=== PATIENT | female | born 1965 | race Caucasian/White ===

== ENCOUNTER → 2016-07-20 | Outpatient (REF) | payer OTHER ==
[~2016-07-20] MED LIST: ACTO150T PO; ADV500INH INH; ALB2.5NEB INH; ALBU0.63 IN; ALBU0.63 INH; ALBU17IN INH; BACITAB3 PO; CETI10TA PO; CIPR500T89 PO; DELTASONE PO; FLUTISP; INVA1INJ IV; METH8TAB OR; METR500T10 PO; PRED10TA PO; PRED20TA PO; SINGULAIR PO; THEO30TASA PO; TIOT18INH INH; TYLE325T5 PO; TYLE650T30 PO; VICO5TAB16 PO; VITA100037 PO; XANA0.25 PO; ZITH250T PO; actonel OR; spiriva INH; tiotropium INH
== END | disposition home or self-care (01) ==
LOC: M LAB REF 11:59
PROVIDERS: ATTEND Nurse Practitioner Family
DX: J06.9 Acute upper respiratory infection, unspecified (principal)

== ENCOUNTER 2016-12-05 17:00 | Emergency (ER) | payer OTHER ==
[~2016-12-05] VITALS: Ht 157.5 cm; Wt 58.8 kg
[~2016-12-05 17:00] MED LIST changes: +BACITAB PO; -BACITAB3 PO; +CIPR-249 PO; -CIPR500T89 PO; +METR1TAB66 PO; -METR500T10 PO; +THEO1TAB4 PO
[2016-12-05] MEDS ORDERED: ZITH250T PO (17:13)
[2016-12-05] MEDS ORDERED: ADV500INH INH (17:13)
[2016-12-05] MEDS ORDERED: PRED10TA2 PO (17:13)
[2016-12-05] MEDS ORDERED: ONDANSETRON 4MG/2ML VIAL (J2405) IV ONE (17:45)
[2016-12-05] MEDS ORDERED: NS 1,000 ML IV ONE (17:45)
[2016-12-05] MEDS ORDERED: KETOROLAC 30 MG/ML VIAL (J1885) IV ONE (17:45)
[2016-12-05 18:10] LABS: BASO # 0.1 K/mm3 (0.0-0.2); BASO % 0.5 % (0.0-1.0); EOS # 0.2 K/mm3 (0.0-0.50); EOS % 0.7 % (0.0-3.0); LARGE UNSTAINED CELL # 0.1 K/mm3 (0.0-0.4); LARGE UNSTAINED CELL % 0.4 % (0.0-4.0); LYMPH # 1.7 K/mm3 (1.5-4.5); LYMPH % 7.2 % (24.0-44.0); MEAN CORPUSCULAR HEMOGLOBIN 32.4 pg (27.0-33.0); MEAN CORPUSCULAR HGB CONC 34.4 g/dl (32.0-36.5); MONO # 0.6 K/mm3 (0.0-0.8); MONO % 2.5 % (0.0-5.0); NEUTROPHILS # 20.5 K/mm3 (1.8-7.7); NEUTROPHILS % 88.8 % (36.0-66.0); PLATELET COUNT, AUTOMATED 422 k/mm3 (150-450); RED CELL DISTRIBUTION WIDTH 12.6 % (11.5-14.5)
--- NOTE | 2016-12-05 18:22 | REP ---
Clinical: Lower chest and abdominal pain . Comparison: 11/09/2016 . Technique: PA and lateral. Findings: The mediastinum and cardiac silhouette are normal. The lung cho are clear and without acute consolidation, effusion, or pneumothorax. The skeletal structures are intact and normal. No evidence for pneumoperitoneum. Impression: 1. No acute cardiopulmonary process. Signed by Abdon Chavez MD 12/05/2016 06:14 P
[2016-12-05 18:46] LABS: ALBUMIN 3.9 GM/DL (3.2-5.2); ALBUMIN/GLOBULIN RATIO 1.11 (1.00-1.93); ALKALINE PHOSPHATASE 79 U/L (45-117); ALT/SGPT 19 U/L (12-78); AMYLASE 55 U/L (25-115); ANION GAP 10 MEQ/L (8-16); AST/SGOT 10 U/L (15-37); BILIRUBIN,DIRECT < 0.1 MG/DL (0.0-0.2); BILIRUBIN,TOTAL 0.4 MG/DL (0.2-1.0); BLOOD UREA NITROGEN 8 MG/DL (7-18); CALCIUM LEVEL 9.6 MG/DL (8.5-10.1); CARBON DIOXIDE LEVEL 25 MEQ/L (21-32); CHLORIDE LEVEL 107 MEQ/L (98-107); CREATININE FOR GFR 1.08 MG/DL (0.55-1.02); GLOMERULAR FILTRATION RATE 56.5 (>51); GLUCOSE, FASTING 104 MG/DL (70-105); POTASSIUM SERUM 3.3 MEQ/L (3.5-5.1); SODIUM LEVEL 142 MEQ/L (136-145); TOTAL PROTEIN 7.4 GM/DL (6.4-8.2)
[2016-12-05] MEDS ORDERED: ISOVUE-370 76% 100ML VIAL (Q9967) As Ordered ONE (18:49)
--- NOTE | 2016-12-05 19:17 | REP ---
Clinical: Generalized abdominal pain. Technique: Axial contrast enhanced images from the lung bases to the pubic symphysis using 100 ml Isovue 370 intravenous contrast material with coronal and sagittal re-formations. Comparison: 12/20/2014. Findings: The lung bases are clear. Visualized heart and pericardium normal. 1 cm hepatic cyst noted in the periphery of the left lobe lateral segment. Spleen, pancreas, gallbladder, bilateral adrenal glands and kidneys are normal. A mild pancolitis as well as possible acute diverticulitis involving the mid sigmoid colon cannot be excluded and should be correlated clinically. There is no evidence for bowel obstruction. Pelvis demonstrates normal bladder and age-appropriate uterus/adnexa. Small fluid collection in the right groin unchanged compared to 2013. No ascites. No free air. No obvious adenopathy. Abdominal aorta and vasculature normal. Surrounding musculoskeletal structures are intact. Impression: 1. Cannot exclude a mild colitis as well as subtle sigmoid diverticulitis (versus sequelae of prior colitis). No bowel obstruction. No free fluid. No free air. No significant adenopathy. 2. Small fluid collection in the right groin essentially unchanged compared to 2013. 3. No ascites, significant adenopathy, or further obvious acute abdominopelvic pathology. Signed by Abdon Chavez MD 12/05/2016 07:09 P
[2016-12-05] MEDS ORDERED: ZOFR4TAB3 PO (19:38)
[2016-12-05] MEDS ORDERED: CIPR-249 PO (19:38)
[2016-12-05] MEDS ORDERED: FLAG500T PO (19:38)
[2016-12-05] MEDS ORDERED: K-TA1TAB PO (19:38)
[2016-12-05 19:51] VITALS: BP 146/89
== END 2016-12-05 19:53 | disposition home or self-care (01) ==
LOC: M ED 18:01
DX: K57.32 Diverticulitis of large intestine without perforation or abscess without bleeding (principal); E87.6 Hypokalemia; Z79.899 Other long term (current) drug therapy; Z79.52 Long term (current) use of systemic steroids; Z88.7 Allergy status to serum and vaccine; Z91.040 Latex allergy status; Z88.0 Allergy status to penicillin; Z88.8 Allergy status to other drugs, medicaments and biological substances
CPT/HCPCS: 71020; 74177; 80048; 80076; 81001; 82150; 83605; 83690; 85025; 96361; 96374; 96375; 99283; J1885; J2405; Q9967

== ENCOUNTER 2016-12-25 14:30 | Emergency (ER) | payer OTHER ==
[~2016-12-25] VITALS: Ht 157.5 cm; Wt 59.0 kg
[~2016-12-25 14:30] MED LIST changes: +FLAG500T PO; +K-TA1TAB PO; +PRED10TA2 PO; +ZOFR4TAB3 PO
[2016-12-25] MEDS ORDERED: DICY10CA13 PO (14:52)
[2016-12-25] MEDS ORDERED: ONDANSETRON 4MG/2ML VIAL (J2405) IV ONE (15:15)
[2016-12-25] MEDS ORDERED: NS 1,000 ML IV ONE (15:15)
[2016-12-25] MEDS ORDERED: MORPHINE 4 MG/ML 1ML SYRINGE IV ONE (15:15)
[2016-12-25] MEDS ORDERED: ACETAMINOPHEN 325 MG TAB As Ordered ONE (15:32)
[2016-12-25 15:37] LABS: BASO % 0.4 % (0.0-1.0); EOS # 0.4 K/mm3 (0.0-0.50); EOS % 3.4 % (0.0-3.0); LARGE UNSTAINED CELL # 0.1 K/mm3 (0.0-0.4); LARGE UNSTAINED CELL % 0.4 % (0.0-4.0); LYMPH # 1.4 K/mm3 (1.5-4.5); LYMPH % 10.3 % (24.0-44.0); MEAN CORPUSCULAR HEMOGLOBIN 32.1 pg (27.0-33.0); MEAN CORPUSCULAR HGB CONC 33.7 g/dl (32.0-36.5); MEAN CORPUSCULAR VOLUME 95.3 fl (80.0-96.0); MONO # 0.4 K/mm3 (0.0-0.8); MONO % 3.1 % (0.0-5.0); NEUTROPHILS # 10.5 K/mm3 (1.8-7.7); NEUTROPHILS % 82.4 % (36.0-66.0); PLATELET COUNT, AUTOMATED 327 k/mm3 (150-450); RED CELL DISTRIBUTION WIDTH 13.3 % (11.5-14.5); WHITE BLOOD COUNT 12.7 K/mm3 (4.0-10.0)
[2016-12-25 15:42] LABS: CONTROL LINE UCG INT CTR LINE PRESENT
[2016-12-25] MEDS ORDERED: ACETAMINOPHEN 325 MG TAB PO ONE (15:45)
[2016-12-25 16:11] LABS: ALBUMIN 3.5 GM/DL (3.2-5.2); ALBUMIN/GLOBULIN RATIO 1.17 (1.00-1.93); BILIRUBIN,DIRECT 0.1 MG/DL (0.0-0.2); BILIRUBIN,TOTAL 0.6 MG/DL (0.2-1.0); CALCIUM LEVEL 8.6 MG/DL (8.5-10.1); CREATININE FOR GFR 1.18 MG/DL (0.55-1.02); POTASSIUM SERUM 3.8 MEQ/L (3.5-5.1); TOTAL PROTEIN 6.5 GM/DL (6.4-8.2)
[2016-12-25] MEDS ORDERED: ISOVUE-370 76% 100ML VIAL (Q9967) As Ordered ONE (16:34)
--- NOTE | 2016-12-25 18:20 | REPUSA ---
HISTORY: LLQ PAIN, ?DIVERTICULITIS. TECHNIQUE: Axial CT imaging of the abdomen and pelvis with coronal and sagittal reformatted imaging, with intravenous contrast enhancement. DLP= 358.1 mGy-cm. FINDINGS: Lung bases are clear. Bone windows demonstrate no fracture or destructive bony lesion. Liver is of normal size. There is a 1 cm benign subcapsular cyst seen in the left lobe of the liver anteriorly. No other liver is seen. Biliary tree and gallbladder are normal with no gallstones seen . Spleen is normal. Pancreas is normal with no mass or calcification seen. No ascites is seen. Abdominal aorta and retroperitoneal structures are normal. Right and left, adrenal glands are normal . Both kidneys function without evidence of mass lesion, obstruction, or calculi seen. Ureters and urinary bladder are normal. There is edematous bowel wall thickening in the region of extensive diverticulosis in a 10 cm length of the sigmoid colon suspicious for diverticulitis, without evidence of bowel perforation or pericoli c abscess formation seen at this time. There are scattered diverticuli seen in the remainder of the colon with no other inflammatory mass seen. There is a right inguinal hernia with a cystic fluid co llection seen extending through the inguinal canal measuring approximately 3.0 x 2.1 cm. There is no evidence of bowel complication in the hernia. No evidence pelvic mass lesions or abnormal fluid col lections are seen. IMPRESSION: 1. Dilatation with bowel wall thickening in the region of extensive diverticulosis in th e sigmoid colon region suspicious for diverticulitis, without complication of pericolic abscess or silvana wel perforation or obstruction seen. 2. Right inguinal hernia with a cystic fluid collection extending through the inguinal canal without bowel complication seen. 3. Small benign cyst noted in the subcapsular region of the left lobe of the liver. 4. The remainder of the CT examination of the abdomen and pelvis is normal.
[2016-12-25] MEDS ORDERED: metroNIDAZOLE (FLAGYL) 500 MG TAB PO ONE (18:45)
[2016-12-25] MEDS ORDERED: METR1TAB66 PO (18:46)
[2016-12-25] MEDS ORDERED: CIPR500T3 PO (18:46)
[2016-12-25 18:57] VITALS: BP 121/75
[2016-12-25] MEDS ORDERED: CIPROFLOXACIN 500 MG TAB PO ONE (19:00)
== END 2016-12-25 19:00 | disposition home or self-care (01) ==
LOC: M ED 14:30
DX: K57.32 Diverticulitis of large intestine without perforation or abscess without bleeding (principal); J45.909 Unspecified asthma, uncomplicated; Z79.899 Other long term (current) drug therapy
CPT/HCPCS: 36415; 74177; 80048; 80076; 81001; 82150; 83690; 84703; 85025; 87086; 96374; 96375; 99284; J2405; Q9967

== ENCOUNTER 2017-01-13 14:34 | Inpatient (IN) | payer OTHER ==
[~2017-01-13] VITALS: Ht 157.5 cm; Wt 58.4 kg
[~2017-01-13 14:34] MED LIST changes: +CIPR500T3 PO; +DICY10CA13 PO
[2017-01-13] MEDS ORDERED: ACETAMINOPHEN 325 MG TAB PO ONE (15:15)
[2017-01-13] MEDS ORDERED: NS 1,000 ML IV ONE (15:15)
[2017-01-13 15:17] LABS: BASO # 0.1 K/mm3 (0.0-0.2); BASO % 0.4 % (0.0-1.0); EOS # 0.2 K/mm3 (0.0-0.50); EOS % 0.9 % (0.0-3.0); LARGE UNSTAINED CELL # 0.1 K/mm3 (0.0-0.4); LARGE UNSTAINED CELL % 0.5 % (0.0-4.0); LYMPH # 1.3 K/mm3 (1.5-4.5); LYMPH % 5.3 % (24.0-44.0); MEAN CORPUSCULAR HGB CONC 34.3 g/dl (32.0-36.5); MEAN CORPUSCULAR VOLUME 93.4 fl (80.0-96.0); MONO % 4.7 % (0.0-5.0); NEUTROPHILS # 19.6 K/mm3 (1.8-7.7); NEUTROPHILS % 88.3 % (36.0-66.0); PLATELET COUNT, AUTOMATED 373 k/mm3 (150-450); RED CELL DISTRIBUTION WIDTH 13.4 % (11.5-14.5); WHITE BLOOD COUNT 22.2 K/mm3 (4.0-10.0)
[2017-01-13] MEDS ORDERED: GASTROGRAFIN SOLUTION 30ML (Q9963) As Ordered ONE (15:23)
[2017-01-13] MEDS ORDERED: GASTROGRAFIN SOLUTION 30ML PO ONE (15:30)
[2017-01-13 15:40] LABS: ALBUMIN 3.6 GM/DL (3.2-5.2); ALBUMIN/GLOBULIN RATIO 1.13 (1.00-1.93); ALKALINE PHOSPHATASE 58 U/L (45-117); ALT/SGPT 28 U/L (12-78); AMYLASE 68 U/L (25-115); ANION GAP 12 MEQ/L (8-16); AST/SGOT 18 U/L (15-37); BILIRUBIN,DIRECT 0.1 MG/DL (0.0-0.2); BILIRUBIN,TOTAL 0.6 MG/DL (0.2-1.0); BLOOD UREA NITROGEN 20 MG/DL (7-18); CALCIUM LEVEL 8.9 MG/DL (8.5-10.1); CARBON DIOXIDE LEVEL 20 MEQ/L (21-32); CHLORIDE LEVEL 106 MEQ/L (98-107); CREATININE FOR GFR 1.04 MG/DL (0.55-1.02); GLUCOSE, FASTING 92 MG/DL (70-105); POTASSIUM SERUM 3.8 MEQ/L (3.5-5.1); SODIUM LEVEL 138 MEQ/L (136-145); TOTAL PROTEIN 6.8 GM/DL (6.4-8.2)
[2017-01-13] MEDS ORDERED: GASTROGRAFIN SOLUTION 30ML (Q9963) PO ONE (16:00)
--- NOTE | 2017-01-13 16:18 | REP ---
CHEST, PA AND LATERAL: 01/13/2017. Clinical history: Abdominal pain. Comparison: 12/05/2016, CT chest 12/14/2016. Findings: Lungs are well inflated. CP angles sharply defined. There is no effusion, lateral pleural thickening, or pneumothorax. There is no free air under the diaphragm. The heart, mediastinal and hilar contours normal. The aorta is intact. Airway is intact. Bony thorax shows no compression deformity or focal lesion. Impression: No acute cardiopulmonary change. Stable chest. Signed by Chilo Lyle MD 01/13/2017 10:24 P
[2017-01-13] MEDS ORDERED: ISOVUE-370 76% 100ML VIAL (Q9967) As Ordered ONE (17:09)
[2017-01-13] MEDS ORDERED: metroNIDAZOLE 500 MG in APPROPRIATE DILUENT 1 EA IV ONE (17:15)
[2017-01-13] MEDS ORDERED: CIPROFLOXACIN 400 MG in APPROPRIATE DILUENT 1 EA IV ONE (17:15)
[2017-01-13] MEDS ORDERED: ONDANSETRON 4MG/2ML VIAL (J2405) IV ONE (17:45)
[2017-01-13] MEDS ORDERED: MORPHINE 4 MG/ML 1ML SYRINGE IV ONE (17:45)
--- NOTE | 2017-01-13 18:38 | REP ---
CT abdomen pelvis with IV and oral contrast: 01/13/2017: Comparison: 12/25/2016. Clinical history: Left lower quadrant pain, diverticulitis, notable abscess. Technique: Oral Gastrografin mixture per protocol with 10 mL of gastrographin and 290 mL of flavored water for two doses. Bolus of 100 mL as of Isovue 370 scanning through the abdomen pelvis with both coronal and sagittal reconstructions. CT abdomen: Lung bases were clear. Heart is not enlarged. There is no pericardial thickening posteriorly slight anteriorly. Small hiatal hernia suspected. Left hepatic lobe mildly prominent. There is a small cyst in the lateral segment, unchanged. No hepatic mass or intrahepatic biliary dilatation. No splenomegaly or focal lesion. No generalized ascites. Gallbladder without calcified stone or mass. The pancreas intact. Adrenal glands normal. Kidneys show function without obstruction, stone, mass or cyst. The abdominal portion of colon and small bowel loops are fluid and air filled, not abnormally distended. There is no perforation or free air in the abdomen or pelvis. The right colon, cecum, transverse colon, flexures show a few scattered diverticula. Left colon shows a few more diverticula. There is no definite colitis or diverticulitis in the abdomen. Bones unchanged. There is minimal degenerative changes in the lumbar spine and posterior elements and ribs intact. CT pelvis: Bony hips, pelvis, sacrum, and SI joints were grossly intact. No hydronephrosis, hydroureter, renal, ureteral or bladder stone. Bladder only partially filled. There is more extensive diverticulosis in the sigmoid without signs of perforation or free air. There is inflammatory change in the fat adjacent suggesting some mild diverticulitis. Small bowel loops grossly intact in the deep pelvis. The cecum intact. I cannot clearly define the appendix but there was no inflammatory change about the cecum. No ventral hernia. There is a fluid collection in the inguinal canal, which most likely reflects a small hydrocele of the canal of Nuck. No adenopathy. Impression: 1. Extensive sigmoid diverticulosis with mild diverticulitis but no perforation or abscess. 2. Evidence of a hydrocele of the canal of Nuck on the left. It is low density and smaller in transverse diameter than the previous CT 2 1/2 weeks ago where it was 22 mm, now 16 mm, a common phenomenon. 3. There is no other acute finding. Signed by Chilo Lyle MD 01/13/2017 10:27 P
[2017-01-13] MEDS ORDERED: ZITH250T PO (19:32)
[2017-01-13] MEDS ORDERED: ALBU83IN INH (19:32)
[2017-01-13] MEDS ORDERED: ALEN10TA PO (19:32)
[2017-01-13] MEDS ORDERED: ALBU17IN INH (19:33)
[2017-01-13] MEDS ORDERED: ONDA4TAB6 PO (19:34)
[2017-01-13] MEDS ORDERED: MORPHINE 2 MG/ML 1ML SYRINGE IV PRN (19:45)
[2017-01-13] MEDS: ACETAMINOPHEN TAB 650MG DOSE (2X325MG) PO PRN (20:15)
[2017-01-13] MEDS ORDERED: SODIUM CHLORIDE 0.9% 1000 ML IV ONE (20:30)
[2017-01-13] MEDS: DOCUSATE SODIUM 100 MG CAP PO SCH (21:00)
[2017-01-13] MEDS ORDERED: IPRATROPIUM 0.5MG/ALBUTEROL 2.5MG INH SOL UD 3ML (DUONEB)(J7620) NEB PRN (21:00)
[2017-01-13 21:30] VITALS: BP 130/62
[2017-01-13] MEDS: NS 1,000 ML IV SCH (22:09)
[2017-01-13] MEDS: PERCOCET 5MG/325MG TAB PO PRN (22:11)
[2017-01-13] MEDS: ADVAIR HFA 230/21MCG INHALER INH SCH (23:30)
[2017-01-13] MEDS: IPRATROPIUM 0.5MG/ALBUTEROL 2.5MG INH SOL UD 3ML (DUONEB)(J7620) NEB SCH (23:30)
[2017-01-14] VITALS (8 sets, daily range): BP systolic 78–122; BP diastolic 53–79
[2017-01-14] MEDS: VANCOMYCIN ORAL SOL 250MG/5ML ORAL SYRINGE PO SCH ×5 (00:01→23:32)
[2017-01-14] MEDS: IBUPROFEN 600 MG TAB PO PRN ×2 (01:01→21:29)
[2017-01-14] MEDS: metroNIDAZOLE 500 MG in APPROPRIATE DILUENT 1 EA IV SCH ×3 (03:24→20:26)
[2017-01-14] MEDS: NS 1,000 ML IV SCH ×2 (05:53→13:11)
[2017-01-14] MEDS: CIPROFLOXACIN 400 MG in APPROPRIATE DILUENT 1 EA IV SCH ×2 (05:53→18:13)
[2017-01-14] MEDS: PERCOCET 5MG/325MG TAB PO PRN ×4 (05:56→20:26)
[2017-01-14] MEDS: ONDANSETRON 4MG/2ML VIAL (J2405) IV PRN (05:56)
[2017-01-14 07:46] LABS: MEAN CORPUSCULAR HEMOGLOBIN 31.7 pg (27.0-33.0); MEAN CORPUSCULAR HGB CONC 33.3 g/dl (32.0-36.5); MEAN CORPUSCULAR VOLUME 95.2 fl (80.0-96.0); RED CELL DISTRIBUTION WIDTH 13.2 % (11.5-14.5)
[2017-01-14] MEDS: ADVAIR HFA 230/21MCG INHALER INH SCH ×2 (07:55→19:50)
[2017-01-14] MEDS: TIOTROPIUM INHALER/CAPSULE (SPIRIVA) INH SCH (07:55)
[2017-01-14] MEDS: IPRATROPIUM 0.5MG/ALBUTEROL 2.5MG INH SOL UD 3ML (DUONEB)(J7620) NEB SCH ×3 (08:00→23:09)
[2017-01-14 08:23] LABS: BLOOD UREA NITROGEN 20 MG/DL (7-18); CREATININE FOR GFR 1.37 MG/DL (0.55-1.02); GLOMERULAR FILTRATION RATE > 60.0 (>51); GLUCOSE, FASTING 83 MG/DL (70-105); POTASSIUM SERUM 3.4 MEQ/L (3.5-5.1); SODIUM LEVEL 139 MEQ/L (136-145)
[2017-01-14 08:24] LABS: ANION GAP 14 MEQ/L (8-16); CALCIUM LEVEL 6.9 MG/DL (8.5-10.1); CARBON DIOXIDE LEVEL 15 MEQ/L (21-32); CHLORIDE LEVEL 110 MEQ/L (98-107)
[2017-01-14] MEDS: DOCUSATE SODIUM 100 MG CAP PO SCH ×2 (08:44→21:24)
[2017-01-14] MEDS: predniSONE 5 MG TAB PO SCH ×2 (08:44→11:11)
[2017-01-14] MEDS: ENOXAPARIN 40 MG/0.4 ML SYRINGE (J1650) SC SCH (08:44)
--- NOTE | 2017-01-14 09:32 | CR ---
DATE OF CONSULTATION: 01/13/2017. REQUESTING PHYSICIAN: Dr. Richter. REASON FOR CONSULTATION: Medical management. CODE STATUS: FULL CODE. CHIEF COMPLAINT: Worsening abdominal pain. HISTORY OF PRESENT ILLNESS: Ms. Eng is a pleasant 51-year-old female with history of asthma for which she sees pulmonology, and osteoporosis. She apparently has had difficulty with recurrent diverticulitis, recently finished antibiotics and stated approximately 3-4 days ago she noticed that the abdominal pain was returning. She has had subjective fevers, chills. No rigors. Decreased appetite with nausea, no vomiting and she has had some loose stool without any hematochezia or melena. She follows outpatient with Dr. Wells and stated that he had intended to refer her to either surgeon or recreation programmer for colonoscopy due to this recurrent issue that she has had. There does not appear to be any family history of inflammatory bowel disease. PAST MEDICAL HISTORY: 1. Asthma. 2. Recently recurrent diverticulitis. PAST SURGICAL HISTORY: 1. Previous section. 2. Tubal operation in the past with loop electrosurgical excision procedure (LEEP) procedure in 2002. 3. Breast biopsy in the past. FAMILY HISTORY: Noncontributory. ALLERGIES: 1. PENICILLIN. 2. PULMICORT. 3. PNEUMOCOCCAL VACCINE. 4. LATEX. HOME MEDICATIONS: - prednisone 10 mg daily - theophylline 300 mg twice a day - Advair 500/50 one inhalation twice a day - Spiriva one inhalation daily - albuterol inhaler as directed Will also request pharmacy to reconcile her medications. REVIEW OF SYSTEMS: As indicated in the history of present illness (HPI). She has had decreased appetite, subjective fevers, chills with no rigors. HEENT: She denies headache, lightheaded, dizziness blurry vision, double vision or tinnitus. No difficulty with speech or swallow. Pulmonary: History of asthma with intermittent wheeze, but she denies productive cough, sputum, hemoptysis. Cardiovascular: She denies substernal chest pain. Denies paroxysmal nocturnal dyspnea (PND), orthopnea or lower extremity edema. Gastrointestinal (GI): As indicated above, decreased appetite with nausea, no vomiting. She has had some stool and she has had vague lower abdominal pain for approximately 3-4 days. Musculoskeletal: No bone loss or joint pain, swelling, or erythema. Neurologic: No paresthesias or paralysis. Psychiatric: Denies suicidal ideation or auditory or visual hallucinations. Denies depression. No history of anxiety. Endocrine: Negative for diabetes. Negative for thyroid disorder. Lymphatic: No lumps, bumps, swelling in the neck, axilla or groin. No night sweats. No weight loss. Hematology: Negative for bleeding or bruising disorder. Oncology: No history of cancer. PHYSICAL EXAMINATION: VITAL SIGNS: Temperature currently 102.3 oral, pulse is 112, blood pressure 109/65, SPO2 is 92% on room air. GENERAL: The patient appears to be in no acute distress. She is alert, pleasant. HEENT: Unremarkable. LUNGS: Clear. Her mucous membranes, however, did appear to be mildly dry. HEART: Regular rate and rhythm. ABDOMEN: Diffusely tender in the lower abdomen, somewhat more noticeably in the left lower quadrant. Bowel sounds are active. She does not demonstrate any rebound or peritoneal signs. No psoas sign. EXTREMITIES: No edema or calf tenderness. NEUROLOGIC: Cranial nerves II-XII grossly intact and she is not demonstrating any focal motor sensory deficits. LABORATORY DATA: White count 22.2, hemoglobin is 15, platelets 373,000. Sodium 138, potassium 3.8, chloride 106, bicarb 20, anion gap 12, BUN is 20, creatinine 1.04, glucose 92. Lactic acid on admission to the ER was 2.1. Four-hour followup is 2.0. She did receive an IV fluid bolus, and she is receiving a second fluid bolus currently. Total bilirubin is 0.6, direct bilirubin 0.1, AST 18, ALT 20, alkaline phosphatase 58. CK 40, CK-MB is 1.0, troponin less than 0.02,. Albumin is 3.6. 12-lead EKG: Sinus tachycardia. Questionable short OH interval. However, there is a P-wave for every QRS. No acute ST-T wave abnormality is noted. Chest x-ray: No acute cardiopulmonary disease noted. CT of the abdomen and pelvis with contrast: Extensive sigmoid colon diverticulosis with mild diverticulitis. No perforation or abscess. No evidence of hydrocele of the canal of Nuck on the left, low-density and smaller in transverse diameter and previous CT scan done two and half weeks ago, possibly a common phenomenon. No acute process is noted. IMPRESSION Ms. Hutton is a pleasant 51-year-old female who unfortunately has had recurrent issues with her diverticular disease, does appear to have recurrence of acute diverticulosis with leukocytosis and lactic acidosis. She has been admitted by Dr. Richter. Hospitalist has been requested to see the patient on consult for medical management which we are happy to do so. PROBLEM LIST: 1. Acute diverticulitis. 2. Leukocytosis secondary to diverticulitis. 3. Lactic acidosis secondary to diverticulitis. 4. Asthma. 5. History of osteoporosis. PLAN AND RECOMMENDATIONS: The patient has been admitted by Dr. Richter. Hospitalist will follow for medical consult and medical management. Would recommend that we continue with DuoNeb. Continue on her home medications. I am fine with clear liquid diet as long as that is okay with surgery. Deep venous thrombosis (DVT) prophylaxis with intravenous (IV) Lovenox. Pain medications, antiemetics have been ordered, as well as IV Cipro and Flagyl, and we will continue her on IV normal saline 125 mL an hour. Again, she was given a bolus. Likely her sinus tachycardia is related to her illness and she does appear to have signs and symptoms of mild sepsis. At this point, will continue on antibiotics and fluids as outlined above. DISPOSITION: She will likely be here greater than two midnights. In the morning Dr. Ramos will continue to round on the patient during her hospital stay. Thanks for the consult and call if there are any further issues or questions.
--- NOTE | 2017-01-14 09:50 | ECGEPIP ---
Stationary ECG Study [facility] - ED Test Date: 2017-01-13 Pat Name: FRITZ GANDHI Department: Room: - Gender: F Sales Closer: lr : 1965 Requested By: SEVEN Butler Order Number: [id number] Reading MD: Juan Maria Measurements Intervals [place] Rate: 142 P: 75 DE: 88 QRS: -5 QRSD: 79 T: 82 QT: 312 QTc: 480 Interpretive Statements SINUS TACHYCARDIA WITH SHORT DE INTERVAL INC. RBBB NONSPECIFIC ST & T-WAVE ABNORMALITY SIMILAR TO 04/23/14 Electronically Signed On 01-14-2017 9:50:07 EDT by Juan Maria
[2017-01-14] MEDS ORDERED: SODIUM CHLORIDE 0.9% 1000 ML IV ONE (11:00)
[2017-01-14] MEDS ORDERED: POTASSIUM CHLORIDE 10 MEQ SR TABLET PO ONE (19:00)
[2017-01-14 19:01] LABS: MAGNESIUM LEVEL 1.6 MG/DL (1.8-2.4)
[2017-01-14] MEDS: THEOPHYLLINE (THEO-24) 100MG SR **CAPSULE PO SCH (21:22)
--- NOTE | 2017-01-14 22:04 | IPN ---
DATE: 01/14/2017 SUBJECTIVE: The patient is seen and examined in the room today. The patient stated since this morning she woke up with significant discomfort. The patient started to have worsening of the abdominal pain. The patient had significant nausea. There are some acute changes to her condition since admission. The patient still has a temperature of 102.8 at midnight. The patient continues to experience palpitations. OBJECTIVE: VITAL SIGNS: Temperature is 98.3, pulse is 117, respirations 20, blood pressure 86/53, pulse oximetry 93% with two liters nasal cannula. GENERAL: Moderate distress. Alert and oriented times three. HEENT: Normocephalic, atraumatic. Extraocular motor grossly intact. CARDIOVASCULAR: Positive S1, S2. Regular rate. LUNGS: Clear to auscultation bilaterally. ABDOMEN: Soft, tenderness to palpation mainly on the lower abdomen. Bowel sounds present. EXTREMITIES: No edema, no sign of cyanosis. LABORATORY DATA: WBC is 14, hemoglobin 12.6, hematocrit 37.9, platelet count 266. Sodium 139, potassium 3.4, chloride 110, carbon dioxide 15, BUN 20, creatinine 1.37, GFR greater than 60, fasting glucose 83, calcium is 6.9. C-reactive protein 10.6. ASSESSMENT AND PLAN: 1. Clostridium (C.) difficile colitis. 2. Acute on chronic diverticulitis. 3. Asthma. 4. Osteoporosis. 5. History of multiple liver abscesses. PLAN: This morning the patient has acute worsening of symptoms with low-grade temperature at midnight. The patient had persistent tachycardia and at the current encounter, the patient has blood pressure as low as 78/56. The patient also has elevated white count, and immediately a STAT bolus order was given, and gastrointestinal (GI) panel is ordered. Later the GI panel came back positive for C. difficile and the patient has been on oral vancomycin. Due to acute on chronic diverticulitis the patient has been on Cipro and Flagyl. The patient is upgraded from medicine/surgery to the progressive care unit (PCU). Continue fluid bolus as needed. The patient has continued to have acute desaturation of the vitals, and the patient may need intensive care unit (ICU) admission. Currently the patient does not have asthma exacerbation, but the patient has breathing treatment as needed. The patient has been on chronic prednisone for her severe asthma. The patient is taking Lovenox for deep venous thrombosis (DVT) prophylaxis.
[2017-01-15] MEDS: NS 1,000 ML IV SCH ×3 (00:33→13:13)
--- NOTE | 2017-01-15 01:57 | CR ---
DATE OF CONSULTATION: 01/13/2017 CHIEF COMPLAINT: Abdominal pain, diarrhea, history of recent diverticulitis and questionable recurrent episode of diverticulitis. BRIEF HISTORY OF PRESENT ILLNESS: The patient is a 51-year-old female who was recently seen and treated for diverticulitis, with extensive diverticulosis and bowel wall thickening in the sigmoid colon, concerning for possible diverticulitis, but no pericolonic inflammation was appreciated on the previous studies and presents to the emergency room with acute onset of increasing abdominal pain with severe diarrhea. She stopped her antibiotics, Cipro and Flagyl, about four or five days ago. She has not had any fevers or chills, although is having some abdominal distension, nausea without vomiting. No blood per rectum. She states she did have a few diarrheal bowel movements last time she had the diverticulitis, although I do not see any stool for Clostridium (C) difficile during those emergency room (ER) visits here. She presents with a white count of 22,000 and a CAT scan which shows extensive diverticulosis and possible mild diverticulitis in the hydrocele; however, when I look at her CAT scan, I see significant inflammation of the mucosa of the rectum up into the rectosigmoid junction area, up along the colon itself, along the descending colon. If I continue following this all along, the majority of the colon has some sort of inflammation, although much less in the right colon in the cecum compared to the descending colon, sigmoid colon and rectum. PAST MEDICAL HISTORY: Significant for: 1. History of asthma. 2. History of diverticulitis. 3. History of (C) section. 4. History of tubal ligation. 5. History of breast biopsy. MEDICATIONS: Include: - prednisone - theophylline - Advair - Spiriva - albuterol PHYSICAL EXAMINATION: Reveals a 51-year-old female who looks older than stated age. HEENT: Unremarkable. NECK: Supple without adenopathy. LUNGS: Are clear with a few wheezes. HEART: Is regular. ABDOMEN: Mildly tender throughout the abdomen, but mostly in the left lower quadrant suprapubic area. EXTREMITIES: Warm, well-perfused. IMPRESSION/PLAN: The patient has an elevated white count, significant diarrhea, nausea, and I feel it is most likely a generalized colitis, probably infectious, and given her recent antibiotic use, anticipate most likely Clostridium (C) difficile infection, although the question is whether this was Clostridium (C) difficile that started before and had she been treated for diverticulitis and has had Clostridium (C) difficile all along. This is harder to know at this point. But, my recommendation stands for treatment at this point until we obtain her Clostridium (C) difficile studies back. Empirically treat her for diverticulitis with Cipro, Flagyl. I will add some vancomycin as well. We will see how she is doing over the night and reevaluate her in the morning.
[2017-01-15] MEDS: metroNIDAZOLE 500 MG in APPROPRIATE DILUENT 1 EA IV SCH ×3 (03:29→17:53)
[2017-01-15 03:33] VITALS: BP 99/67
[2017-01-15 05:46] LABS: MEAN CORPUSCULAR HEMOGLOBIN 31.6 pg (27.0-33.0); MEAN CORPUSCULAR HGB CONC 32.9 g/dl (32.0-36.5); MEAN CORPUSCULAR VOLUME 96.2 fl (80.0-96.0); RED CELL DISTRIBUTION WIDTH 13.7 % (11.5-14.5); WHITE BLOOD COUNT 11.2 K/mm3 (4.0-10.0)
[2017-01-15 05:53] LABS: ANION GAP 9 MEQ/L (8-16); BLOOD UREA NITROGEN 8 MG/DL (7-18); CALCIUM LEVEL 6.8 MG/DL (8.5-10.1); CARBON DIOXIDE LEVEL 20 MEQ/L (21-32); CHLORIDE LEVEL 115 MEQ/L (98-107); GLOMERULAR FILTRATION RATE > 60.0 (>51); GLUCOSE, FASTING 86 MG/DL (70-105); POTASSIUM SERUM 3.5 MEQ/L (3.5-5.1); SODIUM LEVEL 144 MEQ/L (136-145)
[2017-01-15] MEDS: VANCOMYCIN ORAL SOL 250MG/5ML ORAL SYRINGE PO SCH ×3 (06:22→17:52)
[2017-01-15] MEDS: CIPROFLOXACIN 400 MG in APPROPRIATE DILUENT 1 EA IV SCH ×2 (06:23→17:53)
[2017-01-15] MEDS: PERCOCET 5MG/325MG TAB PO PRN ×2 (06:27→18:02)
[2017-01-15] MEDS: TIOTROPIUM INHALER/CAPSULE (SPIRIVA) INH SCH (07:58)
[2017-01-15] MEDS: ADVAIR HFA 230/21MCG INHALER INH SCH ×2 (07:58→19:33)
[2017-01-15 08:00] VITALS: BP 121/78
[2017-01-15] MEDS: DOCUSATE SODIUM 100 MG CAP PO SCH ×2 (09:00→17:53)
[2017-01-15] MEDS: THEOPHYLLINE (THEO-24) 100MG SR **CAPSULE PO SCH ×2 (09:04→21:48)
[2017-01-15] MEDS: ENOXAPARIN 40 MG/0.4 ML SYRINGE (J1650) SC SCH (09:04)
[2017-01-15] MEDS: predniSONE 5 MG TAB PO SCH (09:04)
[2017-01-15 11:30] VITALS: BP 128/85
[2017-01-15] MEDS: IPRATROPIUM 0.5MG/ALBUTEROL 2.5MG INH SOL UD 3ML (DUONEB)(J7620) NEB SCH ×3 (11:49→23:14)
[2017-01-15 14:00] VITALS: BP 124/84
--- NOTE | 2017-01-15 16:52 | IPN ---
DATE: 01/15/2017 SUBJECTIVE: The patient is seen and examined in the room today. Yesterday in the morning, the patient had significant worsening of her symptoms. Generalized discomfort with nausea and vomiting and with abdominal pain. Vitals-cutler, the patient also had significant hypotension. Intravenous (IV) bolus and high-flow normal saline was given. The patient was changed to progressive care unit (PCU) for higher level of care. The patient continued on antibiotics for her Clostridium (C.) difficile. This morning, the patient is seen in the room. The patient states she has significant improvement of her symptoms. She is feeling much better. The patient did have an episode of bloody bowel movement. Blood pressure has been stable, and tachycardia has also improved. OBJECTIVE: VITAL SIGNS: Temperature is 99, pulse 101, respirations 18, blood pressure 121/78, pulse oximetry 96% on room air. GENERAL: No sign of acute distress. Alert and oriented times three. HEENT: Normocephalic, atraumatic. Extraocular motor grossly intact. CARDIOVASCULAR: Positive S1, S2. Regular rate. LUNGS: Clear to auscultation bilaterally. ABDOMEN: Soft, mild tenderness to palpation mainly in the lower abdomen. Bowel sounds present. No rebound. EXTREMITIES: No edema. No sign of cyanosis. LABORATORY DATA: WBC 11.3, hemoglobin 11.7, hematocrit 35.5, platelet count is 233. Sodium 144, potassium 3.5, chloride 115, carbon dioxide 20, BUN 8, creatinine 0.8, GFR greater than 60, fasting glucose 86, calcium 6.8. C-reactive protein is 10.6. ASSESSMENT AND PLAN: 1. Clostridium (C.) difficile colitis, on oral vancomycin. 2. Acute on chronic diverticulitis, on Cipro and Flagyl. 3. Asthma, controlled. No exacerbation. 4. Osteoporosis. Chronic. 5. History of multiple liver abscess. CT scan was performed. No recurrence of liver abscess. DISPOSITION: Currently the patient is receiving oral vancomycin for acute C. difficile colitis. Symptoms improving. Patient was downgraded from PCU to medicine/surgery. Continue to monitor patient. Patient continues to have symptoms from C. difficile.
[2017-01-15] MEDS: CALCIUM CARBONATE 500 MG CHEW U/D PO PRN (21:48)
[2017-01-15 22:00] VITALS: BP 138/89
[2017-01-16] MEDS: VANCOMYCIN ORAL SOL 250MG/5ML ORAL SYRINGE PO SCH ×5 (00:05→23:39)
[2017-01-16] MEDS: NS 1,000 ML IV SCH ×2 (01:53→17:37)
[2017-01-16] MEDS: metroNIDAZOLE 500 MG in APPROPRIATE DILUENT 1 EA IV SCH ×4 (02:37→22:29)
[2017-01-16] MEDS: CIPROFLOXACIN 400 MG in APPROPRIATE DILUENT 1 EA IV SCH ×2 (05:41→19:52)
[2017-01-16 06:00] VITALS: BP 132/85
[2017-01-16 06:18] LABS: MEAN CORPUSCULAR HEMOGLOBIN 31.8 pg (27.0-33.0); MEAN CORPUSCULAR HGB CONC 34.1 g/dl (32.0-36.5); MEAN CORPUSCULAR VOLUME 93.4 fl (80.0-96.0); RED CELL DISTRIBUTION WIDTH 13.5 % (11.5-14.5); WHITE BLOOD COUNT 10.3 K/mm3 (4.0-10.0)
[2017-01-16 06:28] LABS: CARBON DIOXIDE LEVEL 21 MEQ/L (21-32); CHLORIDE LEVEL 112 MEQ/L (98-107); CREATININE FOR GFR 0.73 MG/DL (0.55-1.02); GLOMERULAR FILTRATION RATE > 60.0 (>51); GLUCOSE, FASTING 88 MG/DL (70-105)
[2017-01-16 06:35] LABS: ANION GAP 8 MEQ/L (8-16); SODIUM LEVEL 141 MEQ/L (136-145)
[2017-01-16 06:37] LABS: BLOOD UREA NITROGEN 2 MG/DL (7-18); POTASSIUM SERUM 2.8 MEQ/L (3.5-5.1)
[2017-01-16] MEDS ORDERED: POTASSIUM CHLORIDE 10 MEQ SR TABLET PO ONE (06:45)
[2017-01-16 07:00] LABS: MAGNESIUM LEVEL 1.9 MG/DL (1.8-2.4)
[2017-01-16] MEDS: ADVAIR HFA 230/21MCG INHALER INH SCH ×2 (07:21→20:31)
[2017-01-16] MEDS: TIOTROPIUM INHALER/CAPSULE (SPIRIVA) INH SCH (07:21)
[2017-01-16] MEDS: IPRATROPIUM 0.5MG/ALBUTEROL 2.5MG INH SOL UD 3ML (DUONEB)(J7620) NEB SCH ×3 (07:22→23:52)
[2017-01-16] MEDS: THEOPHYLLINE (THEO-24) 100MG SR **CAPSULE PO SCH ×2 (09:24→20:23)
[2017-01-16] MEDS: predniSONE 5 MG TAB PO SCH (09:25)
[2017-01-16] MEDS: ENOXAPARIN 40 MG/0.4 ML SYRINGE (J1650) SC SCH (09:25)
[2017-01-16] MEDS: DOCUSATE SODIUM 100 MG CAP PO SCH ×2 (09:25→20:22)
[2017-01-16] MEDS: CALCIUM CARBONATE 500 MG CHEW U/D PO PRN ×2 (09:25→20:27)
[2017-01-16] MEDS: PERCOCET 5MG/325MG TAB PO PRN (09:37)
[2017-01-16 12:00] VITALS: BP 138/84
[2017-01-16] MEDS ORDERED: KCL 10MEQ IN 100ML SWI (KRUN) 10 MEQ in APPROPRIATE DILUENT 1 EA IV SCH ×2 (15:00)
--- NOTE | 2017-01-16 15:15 | IPN ---
DATE: 01/16/2017 SUBJECTIVE: The patient is seen and examined in the room today. The patient continued to experience frequent bowel movements, but she does not feel that there is blood in the stool. Her generalized discomfort has improved. No recurrence of fevers. Nausea and vomiting is also improving. OBJECTIVE: VITAL SIGNS: Temperature is 99.8, pulse is 108, respiration rate is 18, blood pressure is 132/85, pulse oximetry is 96% in room air. GENERAL: No sign of acute distress. Alert and oriented times three. HEENT: Normocephalic, atraumatic. Extraocular motor grossly intact. CARDIOVASCULAR: Positive S1, S2. Regular rate. LUNGS: Clear to auscultation bilaterally. ABDOMEN: Soft, mild tenderness to palpation. Bowel sounds present. No rebound. No guarding. EXTREMITIES: No edema. No sign of cyanosis. LABORATORY DATA: WBC is 10.3, hemoglobin is 12.3, hematocrit 36.2, platelet count is 271. Sodium is 141, potassium 2.8, chloride is 112, carbon dioxide 21, BUN is 2, creatinine is 0.73, GFR greater than 60, fasting glucose 88, calcium is 8, magnesium 1.9. ASSESSMENT AND PLAN: 1. Clostridium (C.) difficile colitis. 2. Acute on chronic diverticulitis, on Cipro and Flagyl. 3. Asthma, controlled. No exacerbation. The patient is chronic steroids and theophylline which are the patient's home medications. The patient also has a breathing treatment as needed. 4. Osteoporosis, chronic. 5. History of multiple liver abscesses. CT scan was performed. No recurrence. 6. Severe hypokalemia. The patient continues to have frequent bowel movements secondary to Clostridium difficile colitis. We will supplement with potassium as needed. 7. Deep vein thrombosis (DVT) prophylaxis. The patient is on Lovenox.
[2017-01-16] MEDS ORDERED: POTASSIUM CHLORIDE 10% LIQ 20 MEQ/15 ML UDC PO ONE (18:00)
[2017-01-16] MEDS: ACETAMINOPHEN TAB 650MG DOSE (2X325MG) PO PRN (20:28)
[2017-01-16 22:00] VITALS: BP 140/84
[2017-01-17] MEDS: CIPROFLOXACIN 400 MG in APPROPRIATE DILUENT 1 EA IV SCH ×2 (03:26→17:46)
[2017-01-17] MEDS: NS 1,000 ML IV SCH ×2 (06:01→15:08)
[2017-01-17] MEDS: metroNIDAZOLE 500 MG in APPROPRIATE DILUENT 1 EA IV SCH ×3 (06:01→23:35)
[2017-01-17] MEDS: VANCOMYCIN ORAL SOL 250MG/5ML ORAL SYRINGE PO SCH ×4 (06:01→23:35)
[2017-01-17 06:18] VITALS: BP 144/89
[2017-01-17 06:48] LABS: MEAN CORPUSCULAR HEMOGLOBIN 31.8 pg (27.0-33.0); MEAN CORPUSCULAR HGB CONC 34.6 g/dl (32.0-36.5); RED CELL DISTRIBUTION WIDTH 13.6 % (11.5-14.5)
[2017-01-17 06:58] LABS: ANION GAP 10 MEQ/L (8-16); BLOOD UREA NITROGEN < 1 MG/DL (7-18); CALCIUM LEVEL 8.1 MG/DL (8.5-10.1); CARBON DIOXIDE LEVEL 20 MEQ/L (21-32); CHLORIDE LEVEL 112 MEQ/L (98-107); CREATININE FOR GFR 0.68 MG/DL (0.55-1.02); GLOMERULAR FILTRATION RATE > 60.0 (>51); GLUCOSE, FASTING 86 MG/DL (70-105); POTASSIUM SERUM 3.4 MEQ/L (3.5-5.1); SODIUM LEVEL 142 MEQ/L (136-145)
[2017-01-17] MEDS: ADVAIR HFA 230/21MCG INHALER INH SCH ×2 (07:16→21:27)
[2017-01-17] MEDS: TIOTROPIUM INHALER/CAPSULE (SPIRIVA) INH SCH (07:16)
[2017-01-17] MEDS: IPRATROPIUM 0.5MG/ALBUTEROL 2.5MG INH SOL UD 3ML (DUONEB)(J7620) NEB SCH ×3 (07:17→23:45)
[2017-01-17] MEDS ORDERED: POTASSIUM CHLORIDE 10 MEQ SR TABLET PO ONE (08:00)
[2017-01-17] MEDS: DOCUSATE SODIUM 100 MG CAP PO SCH ×2 (08:43→20:49)
[2017-01-17] MEDS: ENOXAPARIN 40 MG/0.4 ML SYRINGE (J1650) SC SCH (08:43)
[2017-01-17] MEDS: THEOPHYLLINE (THEO-24) 100MG SR **CAPSULE PO SCH ×2 (08:43→20:49)
[2017-01-17] MEDS: predniSONE 5 MG TAB PO SCH (08:44)
[2017-01-17] MEDS: ONDANSETRON 4MG/2ML VIAL (J2405) IV PRN (08:53)
[2017-01-17] MEDS: CALCIUM CARBONATE 500 MG CHEW U/D PO PRN ×3 (08:53→20:49)
[2017-01-17 14:00] VITALS: BP 138/80
[2017-01-17] MEDS: ACETAMINOPHEN TAB 650MG DOSE (2X325MG) PO PRN ×2 (15:18→23:41)
--- NOTE | 2017-01-17 16:43 | IPNPDOC ---
Subjective Date Seen The patient was seen on 01/17/17. Subjective Chief Complaint/HPI Patient seen and examined at the bedside. States that she is feeling better and is able to tolerate a by mouth diet better. In addition, states that her stools have become more formed over the last 24 hours. Denies any acute complaints. Objective Physical Examination General Exam: Positive: Alert, Cooperative, No Acute Distress ENT Exam: Positive: Atraumatic, Mucous membr. moist/pink Neck Exam: Negative: JVD Chest Exam: Positive: Clear to auscultation, Normal air movement Heart Exam: Positive: Rate Normal, Normal S1, Normal S2 Abdomen Exam: Positive: Soft, Negative: Tenderness Extremity Exam: Negative: Tenderness, Swelling Psych Exam: Positive: Oriented x 3 Assessment /Plan Plan/VTE VTE Prophylaxis Ordered?: Yes Plan Abdominal Pain with Nausea/Vomiting 2/ C. difficile versus recurrent diverticulitis CT scan of the abdomen noted GI panel positive for C. difficile The patient has been on IV Cipro/Flagyl and by mouth vancomycin for treatment of both possible diverticulitis and C. difficile. Surgical consultation appreciated White blood cell count has normalized, patient has been afebrile, and inflammatory marker down trending At this time, the patient states that she is feeling much better and is able to tolerate a by mouth diet and denies any complaints of any nausea, vomiting, abdominal pain. She also notes that her stools have become more formed. We will continue to monitor the patient's progress History of asthma, stable Continue current home regimen Hypokalemia likely secondary to diarrhea Serum potassium noted to be 3.4 this morning We have provided supplemental potassium We will repeat serum potassium in the a.m. DVT prophylaxis Lovenox Disposition-anticipate discharge in the next 24 hours pending clinical improvement. VS, I&O, 24H, [facility] Vital Signs/I&O Vital Signs Date Time Temp Pulse Resp B/P (MAP) Pulse Ox O2 Delivery O2 Flow Rate FiO2 01/17/17 14:00 98.2 125 18 138/80 (99) 97 Room Air 01/14/17 19:51 2.0 I&O- Last 24 Hours up to 6 AM 01/17/17 06:00 Intake Total 2560 ml Output Total 2675 ml Balance -115 ml Laboratory Data 24H LABS Laboratory Tests 2 01/17/17 06:29: Anion Gap 10, Glomerular Filtration Rate > 60.0, Blood Urea Nitrogen < 1#L, Creatinine 0.68, Sodium Level 142, Potassium Level 3.4#L, Chloride Level 112H, Carbon Dioxide Level 20L, Calcium Level 8.1L, C-Reactive Protein, Quantitative 5.56H CBC/BMP Laboratory Tests 01/17/17 06:29 Red Blood Count 3.98 L, Mean Corpuscular Volume 92.0, Mean Corpuscular Hemoglobin 31.8, Mean Corpuscular Hemoglobin Concent 34.6, Red Cell Distribution Width 13.6, Calcium Level 8.1 L Microbiology Microbiology 01/13/17 Blood Culture - Preliminary, Resulted No Growth after 72 hours. All specime... 01/13/17 Blood Culture - Preliminary, Resulted No Growth after 72 hours. All specime... 01/14/17 Gastrointestinal Tract Panel (PCR) - Final, Complete Clostridium Difficile A/B 01/13/17 Urine Culture - Final, Complete HELEN JUSTIN MD Jan 17, 2017 16:43
[2017-01-17] MEDS ORDERED: FLAG500T PO (19:26)
[2017-01-17] MEDS ORDERED: CIPR-249 PO (19:26)
[2017-01-17] MEDS ORDERED: VANC250C2 PO (19:26)
[2017-01-17 22:00] VITALS: BP 138/86
[2017-01-18] MEDS: CIPROFLOXACIN 400 MG in APPROPRIATE DILUENT 1 EA IV SCH (03:50)
[2017-01-18 06:00] VITALS: BP 151/94
[2017-01-18] MEDS: VANCOMYCIN ORAL SOL 250MG/5ML ORAL SYRINGE PO SCH ×2 (06:03→12:31)
[2017-01-18] MEDS: metroNIDAZOLE 500 MG in APPROPRIATE DILUENT 1 EA IV SCH (06:03)
[2017-01-18 06:46] LABS: MEAN CORPUSCULAR HEMOGLOBIN 31.4 pg (27.0-33.0); MEAN CORPUSCULAR HGB CONC 33.4 g/dl (32.0-36.5); MEAN CORPUSCULAR VOLUME 93.9 fl (80.0-96.0); RED CELL DISTRIBUTION WIDTH 13.5 % (11.5-14.5); WHITE BLOOD COUNT 6.8 K/mm3 (4.0-10.0)
[2017-01-18 07:02] LABS: ANION GAP 10 MEQ/L (8-16); BLOOD UREA NITROGEN 2 MG/DL (7-18); CALCIUM LEVEL 8.7 MG/DL (8.5-10.1); CARBON DIOXIDE LEVEL 23 MEQ/L (21-32); CHLORIDE LEVEL 109 MEQ/L (98-107); CREATININE FOR GFR 0.83 MG/DL (0.55-1.02); GLOMERULAR FILTRATION RATE > 60.0 (>51); GLUCOSE, FASTING 82 MG/DL (70-105); POTASSIUM SERUM 3.7 MEQ/L (3.5-5.1); SODIUM LEVEL 142 MEQ/L (136-145)
[2017-01-18] MEDS: TIOTROPIUM INHALER/CAPSULE (SPIRIVA) INH SCH (07:17)
[2017-01-18] MEDS: ADVAIR HFA 230/21MCG INHALER INH SCH (07:18)
[2017-01-18] MEDS: IPRATROPIUM 0.5MG/ALBUTEROL 2.5MG INH SOL UD 3ML (DUONEB)(J7620) NEB SCH (08:00)
[2017-01-18] MEDS: DOCUSATE SODIUM 100 MG CAP PO SCH (09:00)
[2017-01-18] MEDS: ENOXAPARIN 40 MG/0.4 ML SYRINGE (J1650) SC SCH (09:00)
[2017-01-18] MEDS: predniSONE 5 MG TAB PO SCH (09:52)
[2017-01-18] MEDS: THEOPHYLLINE (THEO-24) 100MG SR **CAPSULE PO SCH (09:52)
--- NOTE | 2017-01-18 16:53 | DS.PDOC ---
Discharge Summary General Date of Admission Jan 13, 2017 at 19:34 Date of Discharge 01/18/17 Specialist/Consultants Involve: Neelam Alberto,Eugenio Tyler Discharge Summary PROCEDURES PERFORMED DURING STAY: None. ADMITTING DIAGNOSES: 1. . Acute diverticulitis versus C. difficile infection DISCHARGE DIAGNOSES: 1. . Acute diverticulitis versus C. difficile infection COMPLICATIONS/CHIEF COMPLAINT: Acute Diverticulitis. HISTORY OF PRESENT ILLNESS: . 51-year-old female with a past medical history of asthma, osteoporosis, and recurrent diverticulitis presents to the ER with a chief complaint of abdominal pain. The patient also had associated subjective fevers and chills. She described having recently finished a course of antibiotics for recurrent diverticulitis when her symptoms started. She did describe having several loose bowel movements daily during this time. She denied any blood in her stools. She denied any decrease in appetite and nausea, vomiting, or any other acute complaints. In the ER, the patient was noted to be febrile with a MAXIMUM TEMPERATURE of 102.3 and a white blood cell count of 22.2K. A CT scan of the abdomen/pelvis was done and revealed extensive sigmoid diverticulosis with possible mild diverticulitis with no perforation or abscess. The patient was subsequently admitted to the hospitalist service with consultation placed to surgery for further evaluation and management. During hospitalization, surgery was consulted and suggested that the patient's recent symptoms may be attributable to acute diverticulitis versus C. difficile infection. A GI panel did come back and reveal C. difficile infection, and the patient was treated concurrently for both acute diverticulitis and C. difficile. Over the ensuing course of hospitalization, the patient stated that she began to feel much better after initiation of IV antibiotics. The patient states that her abdominal pain had resolved and that her stools became more formed. In addition, the patient's white blood cell count trended downwards, she remained afebrile, and she was able to tolerate a by mouth diet without any issues. At this time, the patient states that she is feeling much better and is eager return home. I've advised the patient to complete the prescribed course of antibiotics. In addition, I did educate the patient about the increased chance of recurrence of C. difficile despite treatment. The patient has acknowledged understanding of the course of diagnosis, disease, and treatment as well as adverse effects. I've advised patient to follow-up with her primary care physician within one week. She has also been advised to return to the ER if her symptoms were to persist or return. DISCHARGE MEDICATIONS: Please see below. ALLERGIES: Please see below. PHYSICAL EXAMINATION ON DISCHARGE: VITAL SIGNS: Please see below. General Exam: Positive: Alert, Cooperative, No Acute Distress ENT Exam: Positive: Atraumatic, Mucous membr. moist/pink Neck Exam: Negative: JVD Chest Exam: Positive: Clear to auscultation, Normal air movement Heart Exam: Positive: Rate Normal, Normal S1, Normal S2 Abdomen Exam: Positive: Soft, Negative: Tenderness Extremity Exam: Negative: Tenderness, Swelling Psych Exam: Positive: Oriented x 3 LABORATORY DATA: Please see below. IMAGING: CT abdomen pelvis with IV and oral contrast: 01/13/2017: Comparison: 12/25/2016. Clinical history: Left lower quadrant pain, diverticulitis, notable abscess. Technique: Oral Gastrografin mixture per protocol with 10 mL of gastrographin and 290 mL of flavored water for two doses. Bolus of 100 mL as of Isovue 370 scanning through the abdomen pelvis with both coronal and sagittal reconstructions. CT abdomen: Lung bases were clear. Heart is not enlarged. There is no pericardial thickening posteriorly slight anteriorly. Small hiatal hernia suspected. Left hepatic lobe mildly prominent. There is a small cyst in the lateral segment, unchanged. No hepatic mass or intrahepatic biliary dilatation. No splenomegaly or focal lesion. No generalized ascites. Gallbladder without calcified stone or mass. The pancreas intact. Adrenal glands normal. Kidneys show function without obstruction, stone, mass or cyst. The abdominal portion of colon and small bowel loops are fluid and air filled, not abnormally distended. There is no perforation or free air in the abdomen or pelvis. The right colon, cecum, transverse colon, flexures show a few scattered diverticula. Left colon shows a few more diverticula. There is no definite colitis or diverticulitis in the abdomen. Bones unchanged. There is minimal degenerative changes in the lumbar spine and posterior elements and ribs intact. CT pelvis: Bony hips, pelvis, sacrum, and SI joints were grossly intact. No hydronephrosis, hydroureter, renal, ureteral or bladder stone. Bladder only partially filled. There is more extensive diverticulosis in the sigmoid without signs of perforation or free air. There is inflammatory change in the fat adjacent suggesting some mild diverticulitis. Small bowel loops grossly intact in the deep pelvis. The cecum intact. I cannot clearly define the appendix but there was no inflammatory change about the cecum. No ventral hernia. There is a fluid collection in the inguinal canal, which most likely reflects a small hydrocele of the canal of Nuck. No adenopathy. Impression: 1. Extensive sigmoid diverticulosis with mild diverticulitis but no perforation or abscess. 2. Evidence of a hydrocele of the canal of Nuck on the left. It is low density and smaller in transverse diameter than the previous CT 2 1/2 weeks ago where it was 22 mm, now 16 mm, a common phenomenon. 3. There is no other acute finding. PROGNOSIS: Medically stable ACTIVITY: As tolerated. DIET: . As tolerated DISCHARGE PLAN: DISPOSITION: Home, Self-Care. DISCHARGE INSTRUCTIONS: 1. . Follow-up with primary care physician within one week 2. . Finish course of antibiotics as prescribed 3. . Return to the ER if symptoms persist or worsen. DISCHARGE CONDITION: Stable. TIME SPENT ON DISCHARGE: Greater than 30 minutes. Vital Signs/I&Os Vital Signs Date Time Temp Pulse Resp B/P (MAP) Pulse Ox O2 Delivery O2 Flow Rate FiO2 01/18/17 10:00 Room Air 01/18/17 06:00 99.1 105 18 151/94 (113) 95 01/14/17 19:51 2.0 I&O- Last 24 Hours up to 6 AM 01/18/17 05:59 Intake Total 1920 ml Output Total 5450 ml Balance -3530 ml Laboratory Data Labs 24H Laboratory Tests 2 01/18/17 06:04: Anion Gap 10, Glomerular Filtration Rate > 60.0, Blood Urea Nitrogen 2#L, Creatinine 0.83, Sodium Level 142, Potassium Level 3.7, Chloride Level 109H, Carbon Dioxide Level 23, Calcium Level 8.7 CBC/BMP Laboratory Tests 01/18/17 06:04 Red Blood Count 4.35, Mean Corpuscular Volume 93.9, Mean Corpuscular Hemoglobin 31.4, Mean Corpuscular Hemoglobin Concent 33.4, Red Cell Distribution Width 13.5 , Calcium Level 8.7 Microbiology Microbiology 01/13/17 Blood Culture - Final, Complete NO GROWTH AFTER 5 DAYS 01/13/17 Blood Culture - Final, Complete NO GROWTH AFTER 5 DAYS 01/14/17 Gastrointestinal Tract Panel (PCR) - Final, Complete Clostridium Difficile A/B 01/13/17 Urine Culture - Final, Complete Discharge Medications Scheduled Alendronate Sodium (Alendronate Sodium) 10 Mg Tab, 10 MG PO DAILY, (Reported) Prednisone (Prednisone) 10 Mg Tab, 10 MG PO DAILY, (Reported) Salmeterol/Fluticasone (Advair Diskus 500-50 Mcg/Dose) 28 Puff/Inhaler Aerp, 1 PUFF INH BID, (Reported) Theophylline (Theophylline ER) 300 Mg Tabcr, 300 MG PO BID, (Reported) Tiotropium Saxis Monohydrate (Spiriva Handihaler) 5 Inhalation/Inhaler Powd, 1 INHALATION INH DAILY, (Reported) Vancomycin Hcl (Vancomycin HCl) 250 Mg Cap, 250 MG PO QID Scheduled PRN Albuterol Sulfate (Albuterol Sulfate) 2.5 Mg/3 Ml Nebu, 1 VIAL INH QID PRN for SHORTNESS OF BREATH, (Reported) Albuterol Sulfate (Ventolin Hfa) 200 Puff/8 Gm Aers, 2 PUFF INH Q4H PRN for SHORTNESS OF BREATH, (Reported) Dicyclomine HCl (Dicyclomine HCl) 10 Mg Cap, 10-20 MG PO Q6H PRN for ABDOMINAL PAIN, (Reported) Ondansetron (Ondansetron Odt) 4 Mg Tab, 4 MG PO Q4H PRN for NAUSEA, (Reported) Allergies Coded Allergies: Latex (Verified Allergy, Intermediate, HIVES, 01/13/17) Penicillins (Verified Allergy, Intermediate, HIVES, 01/13/17) Penicillins Cross Reactors (Verified Allergy, Intermediate, HIVES, 01/13/17) Pneumococcal Vaccine (Verified Allergy, Unknown, 01/13/17) arm welted up with previous injection, per pt says no more Budesonide (Verified Adverse Reaction, Unknown, 01/13/17) Milk Protein Extract (Verified Adverse Reaction, Unknown, 01/13/17) HELEN JUSTIN MD Jan 18, 2017 16:53
== END 2017-01-18 13:15 | disposition home or self-care (01) | DRG 372 ==
LOC: M ED 14:34 → M ED INP 19:34 → M PED 21:30 → M PCU 01-14 16:20 → M MSPAV 01-15 11:37
PROVIDERS: ADMIT Hospitalist; ATTEND Internal Medicine
DX: A04.7 Enterocolitis due to Clostridium difficile (principal); E87.2 Acidosis; K57.32 Diverticulitis of large intestine without perforation or abscess without bleeding; J45.909 Unspecified asthma, uncomplicated; Z88.0 Allergy status to penicillin; Z88.8 Allergy status to other drugs, medicaments and biological substances; Z91.040 Latex allergy status; Z88.7 Allergy status to serum and vaccine; Z79.52 Long term (current) use of systemic steroids; Z79.899 Other long term (current) drug therapy; D72.829 Elevated white blood cell count, unspecified; M81.0 Age-related osteoporosis without current pathological fracture; E87.6 Hypokalemia

== ENCOUNTER → 2017-02-07 | Outpatient (REF) | payer OTHER ==
[~2017-02-07] MED LIST changes: +ALBU83IN INH; +ALEN10TA PO; +ONDA4TAB6 PO; +VANC250C2 PO
== END ==
LOC: M LAB REF 15:37
PROVIDERS: ATTEND Nurse Practitioner Family
DX: R19.7 Diarrhea, unspecified (principal)

== ENCOUNTER 2017-05-15 16:31 | Day surgery (SDC) | payer OTHER ==
[~2017-05-15] VITALS: Ht 157.5 cm; Wt 57.3 kg
[2017-05-15] MEDS ORDERED: MORPHINE 4 MG/ML 1ML SYRINGE IV ONE (19:00)
[2017-05-15] MEDS ORDERED: ONDANSETRON 4MG/2ML VIAL (J2405) IV ONE (19:00)
[2017-05-15] MEDS ORDERED: NS 500 ML IV ONE (19:00)
[2017-05-15] MEDS ORDERED: GASTROGRAFIN SOLUTION 30ML (Q9963) PO ONE ×2 (19:25→19:55)
[2017-05-15 20:16] LABS: BASO % 0.4 % (0.0-1.0); EOS # 0.1 10^3/uL (0.0-0.50); IMMATURE GRANULOCYTE % 0.5 % (0-0); LYMPH # 2.6 10^3/uL (1.5-4.5); LYMPH % 24.4 % (24.0-44.0); MEAN CORPUSCULAR HEMOGLOBIN 31.6 pg (27.0-33.0); MEAN CORPUSCULAR HGB CONC 33.3 g/dl (32.0-36.5); MEAN CORPUSCULAR VOLUME 94.9 fl (80.0-96.0); MONO # 0.6 10^3/uL (0.0-0.8); MONO % 5.9 % (0.0-5.0); NEUTROPHILS # 7.3 10^3/uL (1.8-7.7); NEUTROPHILS % 67.8 % (36.0-66.0); PLATELET COUNT, AUTOMATED 351 10^3/uL (150-450); RED CELL DISTRIBUTION WIDTH 13.3 % (11.5-14.5); WHITE BLOOD COUNT 10.8 10^3/uL (4.0-10.0)
[2017-05-15] MEDS ORDERED: ISOVUE-370 76% 100ML VIAL (Q9967) As Ordered ONE (20:48)
[2017-05-15 21:50] LABS: ALBUMIN 3.6 GM/DL (3.2-5.2); ALBUMIN/GLOBULIN RATIO 1.13 (1.00-1.93); ALKALINE PHOSPHATASE 68 U/L (45-117); ALT/SGPT 20 U/L (12-78); ANION GAP 8 MEQ/L (8-16); AST/SGOT 15 U/L (7-37); BILIRUBIN,TOTAL 0.3 MG/DL (0.2-1.0); BLOOD UREA NITROGEN 15 MG/DL (7-18); CALCIUM LEVEL 8.8 MG/DL (8.5-10.1); CARBON DIOXIDE LEVEL 26 MEQ/L (21-32); CHLORIDE LEVEL 110 MEQ/L (98-107); CREATININE FOR GFR 1.14 MG/DL (0.55-1.02); GLOMERULAR FILTRATION RATE 53.1 (>51); GLUCOSE, FASTING 96 MG/DL (70-105); SODIUM LEVEL 144 MEQ/L (136-145); TOTAL PROTEIN 6.8 GM/DL (6.4-8.2)
--- NOTE | 2017-05-15 22:30 | REPUSA ---
CT of the abdomen and pelvis with contrast Clinical statement: Pain. Technique: Multiple axial CT images were obtained from the base of the lungs through the floor of the pelvis utilizing 5 mm axial slices after administration of oral and nonionic intravenous contrast. C oronal and sagittal reconstructions were also obtained. Comparison: 12/25/2016. Findings: Chest: The visualized lung bases are clear. Abdomen: The liver, spleen, pancreas, kidneys, gallbladder, and adrenal glands are unremarkable. Ther e is a 1 cm simple cyst in the left lobe of the liver. The aorta is within normal limits. There is no evidence of abdominal lymphadenopathy or ascites. Pelvis: There is a loop of herniating small bowel within a right inguinal hernia. Proximal to this si te is mild small bowel fluid distention. There is no discrete evidence of incarceration. The bowel is otherwise unremarkable. Left-sided diverticulosis is noted. The appendix is normal. The urinary blad viki is within normal limits. The other pelvic structures appear grossly intact. There is no evidence of pelvic lymphadenopathy or ascites. Bones: There are no suspicious osseous abnormalities seen. Impression: 1. Low-grade small bowel obstruction caused by a right inguinal hernia. No evidence of incarceration or ascites. 2. Left-sided diverticulosis without evidence of diverticulitis. 3. 1 cm simple cyst in the left lobe of the liver. ER physician was notified of these findings at 10:30 PM on 05/15/2017.
[2017-05-15] MEDS ORDERED: HYDROmorphone HCL 1 MG/ML SYRINGE (J1170) IV ONE (23:00)
[2017-05-15] MEDS ORDERED: VENTAER INH (23:02)
[2017-05-15] MEDS ORDERED: THEO1TAB4 PO (23:02)
[2017-05-15] MEDS ORDERED: ALEN10TA PO (23:02)
[2017-05-15] MEDS ORDERED: SPIR1CAP INH (23:02)
[2017-05-15] MEDS ORDERED: CALC1TAB30 PO (23:02)
[2017-05-15] MEDS ORDERED: PRED10TA2 PO (23:02)
[2017-05-15] MEDS ORDERED: ADV500INH INH (23:02)
[2017-05-15] MEDS ORDERED: VITA100066 PO (23:02)
[2017-05-15] MEDS ORDERED: ALBU83IN INH (23:02)
[2017-05-15] MEDS ORDERED: NS 1,000 ML IV ONE (23:30)
[2017-05-16] VITALS (9 sets, daily range): BP systolic 123–184; BP diastolic 73–99
[2017-05-16] MEDS ORDERED: PROPOFOL 200 MG/20 ML VIAL As Ordered ONE (00:52)
[2017-05-16] MEDS ORDERED: ROCURONIUM BROMIDE 50 MG/5 ML VIAL As Ordered ONE (00:52)
[2017-05-16] MEDS ORDERED: LIDOCAINE 2% INJ 100 MG/5 ML SDV (FOR ANES.) As Ordered ONE (00:52)
[2017-05-16] MEDS ORDERED: MIDAZOLAM INJ 2 MG/2 ML VIAL (J2250) As Ordered ONE (00:53)
[2017-05-16] MEDS ORDERED: fentaNYL 100 MCG/2 ML INJECTION (J3010) As Ordered ONE ×2 (00:53→02:38)
[2017-05-16] MEDS ORDERED: CLINDAMYCIN 600 MG/50 ML PREMIX BAG As Ordered ONE (00:57)
[2017-05-16] MEDS ORDERED: BUPIVACAINE/EPIN 0.5% 30 ML VIAL As Ordered ONE (00:58)
[2017-05-16] MEDS ORDERED: ALBUTEROL 90 MCG/ACT 8GM HFA INHALER INH PRN (01:00)
[2017-05-16] MEDS ORDERED: KETOROLAC 30 MG/ML VIAL (J1885) IV PRN (01:00)
[2017-05-16] MEDS ORDERED: LR 1,000 ML IV SCH ×2 (01:00→03:00)
[2017-05-16] MEDS ORDERED: ALBUTEROL SULFATE 2.5 MG/0.5 ML INH NEB SOLN INH PRN (01:00)
[2017-05-16] MEDS ORDERED: ACETAMINOPHEN TAB 650MG DOSE (2X325MG) PO PRN (01:00)
[2017-05-16] MEDS ORDERED: ONDANSETRON 4MG/2ML VIAL (J2405) IV PRN ×2 (01:00→03:00)
[2017-05-16] MEDS ORDERED: MORPHINE 2 MG/ML 1ML SYRINGE IV PRN (01:00)
[2017-05-16] MEDS ORDERED: ONDANSETRON 4MG/2ML VIAL (J2405) As Ordered ONE (02:04)
[2017-05-16] MEDS ORDERED: NEOSTIGMINE 10 MG/10 ML VIAL (J2710) As Ordered ONE (02:04)
[2017-05-16] MEDS ORDERED: GLYCOPYRROLATE INJ 0.2 MG/ML 2 ML VIAL As Ordered ONE (02:05)
[2017-05-16] MEDS ORDERED: PHENYLephrine HCL 500 MCG/5 ML (100MCG/ML) SYRINGE (J2370) As Ordered ONE (02:12)
[2017-05-16] MEDS ORDERED: SUGAMMADEX SODIUM 500 MG/5 ML VIAL (BRIDION) As Ordered ONE (02:18)
[2017-05-16] MEDS: fentaNYL 100 MCG/2 ML INJECTION (J3010) IV PRN ×4 (02:41→02:57)
[2017-05-16] MEDS ORDERED: HYDROmorphone HCL 1 MG/ML SYRINGE (J1170) IV PRN (03:00)
[2017-05-16] MEDS ORDERED: METOCLOPRAMIDE INJ 10MG/2ML VIAL (J2765) IV PRN (03:00)
[2017-05-16] MEDS: NORCO, ANEXSIA 5/325MG TABLET (HYDROcodone/ACETAMINOPHEN) PO PRN ×4 (03:47→18:39)
[2017-05-16] MEDS: HEPARIN SOD (PORCINE) 5000 UNITS/ML VIAL SC SCH ×3 (06:44→21:12)
[2017-05-16] MEDS: TIOTROPIUM INHALER/CAPSULE (SPIRIVA) INH SCH (08:17)
[2017-05-16] MEDS: ADVAIR HFA 230/21MCG INHALER INH SCH ×2 (08:18→21:14)
[2017-05-16] MEDS: PANTOPRAZOLE 40MG INJ (PROTONIX) (C9113) IV SCH (09:30)
[2017-05-16] MEDS: predniSONE 10 MG TAB PO SCH (09:30)
[2017-05-16] MEDS: SENOKOT S TAB PO SCH ×2 (09:32→20:20)
[2017-05-17] VITALS: BP 115/67
[2017-05-17] MEDS: HEPARIN SOD (PORCINE) 5000 UNITS/ML VIAL SC SCH (05:58)
[2017-05-17 07:28] LABS: CALCIUM LEVEL 8.5 MG/DL (8.5-10.1); CREATININE FOR GFR 1.04 MG/DL (0.55-1.02)
[2017-05-17 07:33] LABS: MEAN CORPUSCULAR HEMOGLOBIN 31.4 pg (27.0-33.0); MEAN CORPUSCULAR HGB CONC 32.3 g/dl (32.0-36.5); MEAN CORPUSCULAR VOLUME 97.1 fl (80.0-96.0); PLATELET COUNT, AUTOMATED 252 10^3/uL (150-450); RED CELL DISTRIBUTION WIDTH 13.4 % (11.5-14.5); WHITE BLOOD COUNT 8.3 10^3/uL (4.0-10.0)
[2017-05-17] MEDS: TIOTROPIUM INHALER/CAPSULE (SPIRIVA) INH SCH (07:33)
[2017-05-17] MEDS: ADVAIR HFA 230/21MCG INHALER INH SCH (07:33)
[2017-05-17 08:00] VITALS: BP 141/83
[2017-05-17] MEDS: predniSONE 10 MG TAB PO SCH (08:47)
[2017-05-17] MEDS: PANTOPRAZOLE 40MG INJ (PROTONIX) (C9113) IV SCH (08:47)
[2017-05-17] MEDS: SENOKOT S TAB PO SCH (08:47)
[2017-05-17] MEDS: NORCO, ANEXSIA 5/325MG TABLET (HYDROcodone/ACETAMINOPHEN) PO PRN (09:31)
[2017-05-17] MEDS ORDERED: NORCOTAB PO (09:58)
--- NOTE | 2017-05-17 10:49 | RO ---
DATE OF PROCEDURE: 05/16/2017 PREOPERATIVE DIAGNOSIS: Incarcerated right femoral hernia. POSTOPERATIVE DIAGNOSIS: Incarcerated right femoral hernia. PROCEDURE: Open incarcerated right femoral hernia repair. SURGEON: Dr. Leland Subramanian RECREATION ASSISTANT: None. ANESTHESIA: General. ESTIMATED BLOOD LOSS: 5. COMPLICATIONS: None. INDICATIONS FOR PROCEDURE: The patient is 51-year-old female presenting to the ER with right groin pain and found have incarcerated right femoral hernia on CT scan as well as physical exam. Recommendation was to proceed with open repair. The risks and benefits of the procedure not limited to, but including bleeding, infection, hernia formation, hernia recurrence, damage to surrounding structures, need for further surgery were discussed detail with the patient, informed consent was obtained and the procedure was planned. DESCRIPTION OF PROCEDURE: The patient brought back to operating room three, after sufficient sedation, the abdomen was sterilely prepped and draped. Next, a time-out was done to confirm proper patient and proper procedure. Following that, a 5 cm incision was made overlying the palpable mass in the right groin. Electrocautery was used to dissect through the subcutaneous tissues until the hernia sac was reached. Once the hernia sac was reached, it was encircled completely until the neck was easily visible. The hernia sac was then opened revealing a large amount of edematous omentum and a small loop of small bowel that was very ischemic. I held on to the small bowel with a pair of clamps while I opened up the neck of the hernia. After releasing the pressure in the neck of the hernia, the small bowel loop pinked up very briskly within seconds and appeared to be very viable. We left it there and watched it for a couple minutes to make sure it continued to improve. After doing so, the small bowel loop was reduced back inside the abdomen. The omentum was ligated with an #0 Vicryl suture stick tie and then amputated. The remaining omentum was placed back inside of the abdomen and the defect in the abdominal wall, which was less than a centimeter in diameter, was closed with [id number] #0 Vicryl suture. After doing so, the subcutaneous tissues were reapproximated with two rows of running #2-0 chromic suture followed by a row of interrupted #3-0 Vicryl sutures. The skin was reapproximated with mega. Once this was all completed, the patient was awakened from anesthesia and sent to the postanesthesia care unit (PACU) in stable condition.
--- NOTE | 2017-05-17 10:54 | DSES ---
DATE OF ADMISSION: 05/16/2017 DATE OF DISCHARGE: ADMISSION DIAGNOSIS: Incarcerated right femoral hernia. DISCHARGE DIAGNOSIS: Incarcerated right femoral hernia. HOSPITAL COURSE: The patient is a 51-year-old female who presented late evening 05/15/2017 to the emergency room with complaints of right groin pain. She was found to have a large hernia that was not reducible. Recommendation to take her to the operating room for a repair. She was brought to the operating room urgently the first thing in the morning on 05/16/2017 just after midnight for a repair of an incarcerated right femoral hernia. She tolerated the procedure well. Postoperatively, she was sent to the pediatric floor. She was given a regular diet. She was up ambulating in the halls. She was kept for the day to monitor her to make sure her lactic acid returned to normal and her creatinine improved. This morning, 05/17/2017, all of her laboratories are improved. She is tolerating a diet. No nausea or vomiting. Very minimal pain. She is ambulating in the halls, having normal urination. The plan at this time is to discharge home, and she will followup with me in the office in 2 weeks. She can return to work on Monday. The only restriction at this point is no lifting, pushing, or pulling more than 20 pounds. She will be discharged home with pain medication and also was advised to take Motrin as needed for pain.
--- NOTE | 2017-05-17 10:57 | HPE ---
DATE OF ADMISSION: 05/16/2017 CHIEF COMPLAINT: Right groin pain. HISTORY OF PRESENT ILLNESS: Patient is a 51-year-old female with a known history of a right inguinal hernia. She was seen less than a year ago by a surgeon for this hernia but she was not having any problems with it so she was holding off on having any surgical intervention. Hernia had been present for a couple of years, only bothered her when she was standing up for long periods of time and usually went away on its own. When it did bother her and she felt the lump, she was unable to reduce it completely on her own, but the pain did improve when she relaxed. She never had a hospitalization for this before. No previous surgery in the area. Denies any problems with nausea, vomiting, fevers, sweats, or chills, or problems with urination or bowel movements. For the past 12 hours or so, she has had a large bulge in the right groin associated with some pain. She left work early and went home to see if it would go away on its own but it did not, and it continued to get worse so she came to the emergency room for evaluation. In the emergency room (ER) her vitals and labs were all stable, but her CT scan does show that she has a loop of small bowel stuck in a hernia in the right groin. Therefore, I was called to evaluate. When I evaluated her in the emergency room, she was still having significant pain that was not improving with ice, rest, or pain medicines. The ER had attempted reduction but was unsuccessful. I attempted reduction at the bedside emergency room myself as well which was also unsuccessful. Therefore, recommendation was to take her to the operating room for urgent operation. PAST MEDICAL HISTORY: Asthma, diverticulosis. PAST SURGICAL HISTORY: Liver abscess drainage, left breast biopsy, (C) section, tubal ligation, colonoscopies. ALLERGIES: BUDESONIDE, LATEX, PNEUMOCOCCAL VACCINE, PENICILLIN. HOME MEDICATIONS: - albuterol - alendronate sodium - prednisone - Advair - theophylline - Spiriva - vitamin D - calcium SOCIAL HISTORY: Denies drug, alcohol, tobacco usage. FAMILY HISTORY: Noncontributory. REVIEW OF SYSTEMS: Pertinent positives as stated in the history of present illness (HPI). PHYSICAL EXAM: GENERAL: Patient is awake, alert, and oriented times three. No acute distress. VITAL SIGNS: Temperature 97.8, pulse 109, respirations 16, blood pressure 140/92, pulse ox 96% room air. HEENT: Pupils equal round and reactive to light and accommodation. HEART: S1, S2, regular rate and rhythm. LUNGS: Clear to auscultation bilaterally. ABDOMEN: Soft, nondistended, nontender. There is tender to palpation over the right groin with a large femoral hernia that is nonreducible and very tender to palpation. EXTREMITIES: No clubbing, cyanosis, or edema. LABS: White count is 10.8, hemoglobin 16, platelets 351, lactic acid 2.8, potassium 4, creatinine 1.14. IMAGING: CT abdomen and pelvis shows a low-grade small bowel obstruction caused by right inguinal hernia. No evidence for incarceration or ascites. Left side diverticulosis without evidence of diverticulitis. A 1 cm simple cyst on the left lobe of the liver. ASSESSMENT/PLAN: Patient is a 51-year-old female, history of a known right inguinal hernia, presents with signs of a small bowel obstruction, likely secondary to an incarcerated right femoral hernia. Recommendation is to take her to the operating room for urgent repair of this incarcerated femoral hernia. Risks and benefits of the procedure were discussed in detail with the patient. Consent was obtained, and she was taken to the operating room for urgent surgery. Postoperatively, she will be kept at least overnight, monitor her labs and vitals. Once she is stable, she will be discharged home.
== END 2017-05-17 11:50 | disposition home or self-care (01) ==
LOC: M SDC 16:34 → M ED 16:34 → M SDC 23:59 → M PED 05-16 03:17 → M SDC 05-17 11:50
PROVIDERS: ATTEND Surgery
DX: K41.30 Unilateral femoral hernia, with obstruction, without gangrene, not specified as recurrent (principal); J45.909 Unspecified asthma, uncomplicated; K57.92 Diverticulitis of intestine, part unspecified, without perforation or abscess without bleeding; Z86.19 Personal history of other infectious and parasitic diseases; M81.0 Age-related osteoporosis without current pathological fracture; Z88.0 Allergy status to penicillin; Z88.8 Allergy status to other drugs, medicaments and biological substances; Z88.7 Allergy status to serum and vaccine; Z91.040 Latex allergy status; Z79.899 Other long term (current) drug therapy; Z79.52 Long term (current) use of systemic steroids; Z79.51 Long term (current) use of inhaled steroids
CPT/HCPCS: 36415; 49553; 74177; 80048; 80053; 81001; 83605; 83690; 85025; 85027; 86140; 96372; 96374; 96375; 96376; 99284; C9113; J1170; J1885; J2250; J2370; J2405; J2710; J3010; Q9963; Q9967

== ENCOUNTER → 2017-06-25 | Outpatient (CLI) | payer OTHER ==
[2017-06-25 18:35] LABS: BASO # 0.1 10^3/uL (0.0-0.2); BASO % 0.8 % (0.0-1.0); EOS # 0.5 10^3/uL (0.0-0.50); EOS % 5.8 % (0.0-3.0); HEMATOCRIT 46.2 % (36.0-47.0); HEMOGLOBIN 15.3 g/dl (12.0-16.0); IMMATURE GRANULOCYTE % 0.3 % (0-0); LYMPH # 2.4 10^3/uL (1.5-4.5); LYMPH % 27.3 % (24.0-44.0); MEAN CORPUSCULAR HEMOGLOBIN 31.2 pg (27.0-33.0); MEAN CORPUSCULAR HGB CONC 33.1 g/dl (32.0-36.5); MEAN CORPUSCULAR VOLUME 94.3 fl (80.0-96.0); MONO # 1.1 10^3/uL (0.0-0.8); MONO % 12.2 % (0.0-5.0); NEUTROPHILS # 4.7 10^3/uL (1.8-7.7); NEUTROPHILS % 53.6 % (36.0-66.0); PLATELET COUNT, AUTOMATED 334 10^3/uL (150-450); RED CELL DISTRIBUTION WIDTH 13.4 % (11.5-14.5); WHITE BLOOD COUNT 8.8 10^3/uL (4.0-10.0)
== END ==
LOC: M ADAMS 11:53
DX: J20.9 Acute bronchitis, unspecified (principal)

== ENCOUNTER 2018-05-11 12:23 | Day surgery (SDC) | payer OTHER ==
[~2018-05-11 12:23] MED LIST changes: -ACTO150T PO; -ADV500INH INH; -ALB2.5NEB INH; -ALBU0.63 IN; -ALBU0.63 INH; -ALBU17IN INH; -ALBU83IN INH; -ALEN10TA PO; -BACITAB PO; -CETI10TA PO; -CIPR-249 PO; -CIPR500T3 PO; -DELTASONE PO; -DICY10CA13 PO; -FLAG500T PO; -FLUTISP; -INVA1INJ IV; -K-TA1TAB PO; +LIDOCAINE 2% INJ 100 MG/5 ML SDV (FOR ANES.) As Ordered; -METH8TAB OR; -METR1TAB66 PO; +NS 1,000 ML IV; -ONDA4TAB6 PO; -PRED10TA PO; -PRED10TA2 PO; -PRED20TA PO; +PROPOFOL 200 MG/20 ML VIAL As Ordered; -SINGULAIR PO; -THEO1TAB4 PO; -THEO30TASA PO; -TIOT18INH INH; -TYLE325T5 PO; -TYLE650T30 PO; -VANC250C2 PO; -VICO5TAB16 PO; -VITA100037 PO; -XANA0.25 PO; -ZITH250T PO; -ZOFR4TAB3 PO; -actonel OR; -spiriva INH; -tiotropium INH
== END 2018-05-11 15:46 | disposition home or self-care (01) ==
LOC: M OPP 15:46
DX: Z12.11 Encounter for screening for malignant neoplasm of colon (principal); D12.5 Benign neoplasm of sigmoid colon; K57.30 Diverticulosis of large intestine without perforation or abscess without bleeding; J44.9 Chronic obstructive pulmonary disease, unspecified; J45.909 Unspecified asthma, uncomplicated; K74.60 Unspecified cirrhosis of liver; K76.9 Liver disease, unspecified; Z86.010 Personal history of colon polyps; Z98.890 Other specified postprocedural states; Z79.899 Other long term (current) drug therapy; Z88.8 Allergy status to other drugs, medicaments and biological substances; Z91.040 Latex allergy status; Z91.011 Allergy to milk products; Z88.0 Allergy status to penicillin; Z88.7 Allergy status to serum and vaccine; Z86.19 Personal history of other infectious and parasitic diseases
CPT/HCPCS: 45385

== ENCOUNTER → 2018-07-31 | Outpatient (CLI) | payer OTHER ==
[~2018-07-31] MED LIST changes: +ACTO150T PO; +ADV500INH INH; +ALB2.5NEB INH; +ALBU0.63 IN; +ALBU0.63 INH; +ALBU17IN INH; +ALBU83IN INH; +ALEN10TA20 PO; +AZIT-12 PO; +BACITAB PO; +CALC1TAB30 PO; +CETI10TA PO; +CIPR-249 PO; +CIPR500T3 PO; +DELTASONE PO; +DICY10CA13 PO; +FLAG500T PO; +FLUTISP; +INVA1INJ IV; +K-TA1TAB PO; -LIDOCAINE 2% INJ 100 MG/5 ML SDV (FOR ANES.) As Ordered; +METH8TAB OR; +METR-201 PO; +NORCOTAB PO; -NS 1,000 ML IV; +ONDA4TAB6 PO; +PRED10TA PO; +PRED10TA2 PO; +PRED20TA PO; -PROPOFOL 200 MG/20 ML VIAL As Ordered; +SINGULAIR PO; +SPIR1CAP INH; +THEO1TAB PO; +THEO30TASA PO; +TIOT18INH INH; +TYLE325T5 PO; +TYLE650T30 PO; +VANC250C2 PO; +VENTAER INH; +VICO5TAB16 PO; +VITA100037 PO; +VITA100066 PO; +XANA0.25 PO; +ZITH250T PO; +ZOFR4TAB14 PO; +ZYRT10CA5 PO; +actonel OR; +spiriva INH; +tiotropium INH
[2018-08-04 11:06] LABS: D001-IgE D pteronyssinus <0.10 kU/L (Class 0); E001-IgE Cat Epith/Dander 1.18 kU/L (Class II); E005-IgE Dog Dander 1.07 kU/L (Class II); G002-IgE Bermuda Grass < 0.10 kU/L (Class 0); G008-IgE Kentucky Bluegrass < 0.10 kU/L (Class 0); M001-IgE Penicillium chrysogen < 0.10 kU/L (Class 0); M002 IgE Cladosporium herbaru < 0.10 kU/L (Class 0); M003 IgE Aspergillus fumigatu < 0.10 kU/L (Class 0); M006-IgE Alternaria alternata < 0.10 kU/L (Class 0); T001-IgE Maple/Box Elder < 0.10 kU/L (Class 0); T003-IgE Common Silver Birch < 0.10 kU/L (Class 0); T006-IgE Cedar, Mountain < 0.10 kU/L (Class 0); T007-IgE Oak, White < 0.10 kU/L (Class 0); T008-IgE Elm, American < 0.10 kU/L (Class 0); T015-IgE Ash, White < 0.10 kU/L (Class 0); T041-IgE Hickory, White < 0.10 kU/L (Class 0); T070-IgE White Mulberry < 0.10 kU/L (Class 0); W001-IgE Ragweed, Short < 0.10 kU/L (Class 0); W009-IgE Plantain, English < 0.10 kU/L (Class 0); W014-IgE Pigweed, Rough < 0.10 kU/L (Class 0); W018-IgE Sheep Sorrel < 0.10 kU/L (Class 0)
== END ==
LOC: M SMT 13:42
PROVIDERS: ATTEND Internal Medicine Pulmonary Disease
DX: J45.40 Moderate persistent asthma, uncomplicated (principal)

== ENCOUNTER → 2018-11-15 | Outpatient (REF) | payer OTHER ==
[~2018-11-15] MED LIST changes: +FLUT1SPR2; -FLUTISP; +HYDR-3715 PO; -METR-201 PO; +METR-265 PO; -NORCOTAB PO; +PRED-351 PO; -PRED10TA PO; -VANC250C2 PO; +VANC250C3 PO; -VICO5TAB16 PO; +VICO5TAB17 PO
== END ==
LOC: M LAB REF 17:27
PROVIDERS: ATTEND Internal Medicine Pulmonary Disease
DX: J45.50 Severe persistent asthma, uncomplicated (principal)

== ENCOUNTER → 2019-02-25 | Outpatient (CLI) | payer OTHER ==
[~2019-02-25] MED LIST changes: -ALEN10TA20 PO; +ALEN10TA5 PO; +ALL10TAB29 PO; +BACT400T PO; +PERCOCET PO
--- NOTE | 2019-02-25 19:49 | REP ---
Right foot four views: There are no comparisons. Mineralization and joint spaces are normal. There is no fracture or dislocation. There are no calcifications or foreign bodies. Impression: Negative right foot. Electronically Signed by Leland Travis MD 02/25/2019 07:41 P
== END ==
LOC: M RAD 19:15
PROVIDERS: ATTEND Physician Assistant Medical
DX: M79.671 Pain in right foot (principal)

== ENCOUNTER → 2019-03-05 | Outpatient (REF) | payer OTHER ==
[~2019-03-05] MED LIST changes: +ALEN10TA21 PO; -ALEN10TA5 PO; -BACT400T PO; -PERCOCET PO
== END ==
LOC: M LAB REF 12:39
PROVIDERS: ATTEND Internal Medicine
DX: Z79.52 Long term (current) use of systemic steroids (principal)

== ENCOUNTER 2019-03-07 13:36 | Inpatient (IN) | payer OTHER ==
[~2019-03-07] VITALS: Ht 157.5 cm; Wt 62.8 kg
[~2019-03-07 13:36] MED LIST changes: -ALL10TAB29 PO
[2019-03-07] MEDS ORDERED: NS 1,000 ML IV ONE ×2 (14:30→15:00)
[2019-03-07 14:45] LABS: BASO # 0.1 10^3/uL (0.0-0.2); BASO % 0.6 % (0.0-1.0); EOS # 0.1 10^3/uL (0.0-0.5); EOS % 0.6 % (0.0-3.0); HEMATOCRIT 48.1 % (36.0-47.0); HEMOGLOBIN 15.9 g/dl (12.0-15.5); LYMPH # 2.4 10^3/uL (1.5-5.0); LYMPH % 16.5 % (24.0-44.0); MEAN CORPUSCULAR HEMOGLOBIN 32.3 pg (27.0-33.0); MEAN CORPUSCULAR HGB CONC 33.1 g/dl (32.0-36.5); MEAN CORPUSCULAR VOLUME 97.6 fl (80.0-96.0); MONO # 1.5 10^3/uL (0.0-0.8); MONO % 10.4 % (0.0-5.0); NEUTROPHILS # 10.3 10^3/uL (1.5-8.5); NEUTROPHILS % 71.4 % (36.0-66.0); PLATELET COUNT, AUTOMATED 283 10^3/uL (150-450); RED BLOOD COUNT 4.93 10^6/uL (4.00-5.40); WHITE BLOOD COUNT 14.4 10^3/uL (4.0-10.0)
--- NOTE | 2019-03-07 15:04 | REP ---
Portable chest, 02:41 p.m., single AP view with the the patient upright: Comparison is the PA and lateral chest dated 01/13/2017. The lung cho are clear. The cardiac size is normal. The maida, mediastinum, and skeletal structures are unremarkable. Impression: Negative portable chest. There is no interval change. Electronically Signed by Leland Travis MD 03/07/2019 02:56 P
[2019-03-07 15:48] LABS: ALBUMIN 3.3 GM/DL (3.2-5.2); ALT/SGPT 34 U/L (12-78); AMYLASE 25 U/L (25-115); BILIRUBIN,DIRECT 0.1 MG/DL (0.0-0.2); BILIRUBIN,TOTAL 0.8 MG/DL (0.2-1.0); BLOOD UREA NITROGEN 18 MG/DL (7-18); CALCIUM LEVEL 9.2 MG/DL (8.5-10.1); CARBON DIOXIDE LEVEL 17 MEQ/L (21-32); CHLORIDE LEVEL 105 MEQ/L (98-107); CK-MB VALUE MASS 1.4 NG/ML (<3.6); CPK CREATINE PHOSPHOKINASE 101 U/L (26-192); CREATININE FOR GFR 1.13 MG/DL (0.55-1.30); GLOMERULAR FILTRATION RATE 53.2 (>51); GLUCOSE, FASTING 98 MG/DL (70-100); LIPASE 67 U/L (73-393); MB/CK RELATIVE INDEX 1.39 (< OR =4); POTASSIUM SERUM 4.2 MEQ/L (3.5-5.1); SODIUM LEVEL 136 MEQ/L (136-145); THYROID STIMULATING HORMONE 0.625 uIU/ML (0.358-3.740); TROPONIN I < 0.02 NG/ML (< 0.10)
[2019-03-07] MEDS ORDERED: CIPR500T3 PO (16:37)
[2019-03-07] MEDS ORDERED: ALL10TAB29 PO (16:37)
[2019-03-07] MEDS ORDERED: FLAG500T PO (16:37)
[2019-03-07] MEDS: MORPHINE 2 MG/ML 1ML SYRINGE (J2270) IV PRN ×2 (17:11→17:21)
[2019-03-07] MEDS: NS 1,000 ML IV SCH (17:12)
[2019-03-07] MEDS ORDERED: ALBUTEROL 90 MCG/ACT 8GM HFA INHALER INH PRN (17:30)
[2019-03-07] MEDS ORDERED: ALBUTEROL SULFATE 2.5 MG/0.5 ML INH NEB SOLN INH PRN (17:30)
--- NOTE | 2019-03-07 17:49 | HPEPDOC ---
[facility] Medical History & Physical Date of Admission Mar 07, 2019 Date of Service: Mar 07, 2019 History and Physical CHIEF COMPLAINT: Right groin pain. HISTORY OF PRESENT ILLNESS: Patient is a 51-year-old female with a known history of asthma, inguinal hernia repair, history of diverticulitis, history of C. difficile comes to the hospital because she has been experiencing this lower abdominal pain since Monday morning. The patient states that she has this pain along with fever and chills which have been coming on and off for the last 3 days. The patient went to her PCP and he recommended a CT scan which showed that the patient was having fairly extensive sigmoid diverticulitis and contained perforation with no abscess collection at this time. There was no free air in the abdomen, which was seen. The patient was sent to the ER because of that. The patient stated that she also has been having no appetite as well as diarrhea for the last 1-1/2 day with about 3-4 episodes of loose stools. The patient states t hat she had fever, which she did not monitor and at the same time was feeling chills and rigors. She also has been sweating a lot. Patient denies any loss of consciousness, any chest pain, any blood in the stool, any nausea or any vomiting. PAST MEDICAL HISTORY: Asthma, diverticulosis. PAST SURGICAL HISTORY: Liver abscess drainage in the remote past, left breast biopsy, (C)section, tubal ligation, colonoscopies. ALLERGIES: BUDESONIDE, LATEX, PNEUMOCOCCAL VACCINE, PENICILLIN. HOME MEDICATIONS: - albuterol - alendronate sodium - prednisone - Advair - theophylline - Spiriva - vitamin D - calcium SOCIAL HISTORY: Denies drug, alcohol, tobacco usage. FAMILY HISTORY: Noncontributory. REVIEW OF SYSTEMS: Pertinent positives as stated in the history of present i llness (HPI). PHYSICAL EXAM: GENERAL: Patient is awake, alert, and oriented times three. Mild distress because of abdominal pain HEENT: Pupils equal round and reactive to light and accommodation. HEART: S1, S2, regular rate and rhythm. LUNGS: Clear to auscultation bilaterally. ABDOMEN: Soft, nondistended. There is tender to palpation over the left lower and right lower quadrant. No rebound, no guarding no rigidity palpation. EXTREMITIES: No clubbing, cyanosis, or edema. LABS: Mood IMAGING: CT abdomen and pelvis which was done at the outside facility shows fairly extensive sigmoid diverticulitis and contained perforation with no abscess collection at this time ASSESSMENT/PLAN: This is a 53-year-old female with past medical history of asthma, recurrent diverticulitis, is admitted currently for possible extensive diverticulitis with contained aspiration for which surgery has been consulted and the patient has been started on IV antibiotics with Cipro and Flagyl and patient has been kept nothing by mouth until further deconditioned by surgery 1. Acute complicated diverticulitis with contained perforation. CAT scan as above. The patient will be kept nothing by mouth. IV Flagyl and Rocephin has been started. The patient is allergic to penicillins. That is why because of cross reactivity Zosyn will not be given. I spoke personally with Dr. Bob, the general surgeon and he is going to evaluate the patient soon. In my opinion, as the patient has had multiple diverticulitis and if they have been on the same location. The patient probably will require of shot bowel resection. We'll order a KUB for the morning. The patient will be admitted to ICU for close monitoring and fever and abdominal examinations. KUB will be ordered for the morning. 2. Asthma. Patient takes long-acting beta agonist, long-acting Bhasker Epps agonists and inhaled corticosteroid, which all will be continued. The patient is also on prednisone 10 mg she took today. To avoid any adrenal insufficiency. We will restart her on Solu-Medrol IV tomorrow. 2. Finding is on hold as the patien t is tachycardic. 3. Tachycardia. Likely secondary to sepsis versus theophylline. Theophylline levels be done. He'll probably will be kept on hold. Continue telemetry monitoring in ICU care. 4. Sepsis, likely secondary to diverticulitis. With social interaction, tachycardia and fever. He hasn't has been normal. We will continue IV fluids at 100 mL per hour. The patient is normotensive right now. Disposition. Unknown at this time DVT prophylaxis with heparin Surgical consultation pending Vital Signs Vital Signs Date Time Temp Pulse Resp B/P (MAP) Pulse Ox O2 Delivery O2 Flow Rate FiO2 03/07/19 17:21 18 03/07/19 17:15 100.3 114 151/87 (108) 95 03/07/19 13:36 Room Air Laboratory Data Labs 24H Laboratory Tests 2 03/07/19 14:36: Immature Granulocyte % (Auto) 0.5, White Blood Count 14.4H, Red Blood Count 4.93, Hemoglobin 15.9H, Hematocrit 48.1H, Mean Corpuscular Volume 97.6H, Mean Corpuscular Hemoglobin 32.3, Mean Corpuscular Hemoglobin Concent 33.1, Red Cell Distribution Width 12.8, Platelet Count 283, Neutrophils (%) (Auto) 71.4H, Lymphocytes (%) (Auto) 16.5L, Monocytes (%) (Auto) 10.4H, Eosinophils (%) (Auto) 0.6, Basophils (%) (Auto) 0.6, Neutrophils # (Auto) 10.3H, Lymphocytes # (Auto) 2.4, Monocytes # (Auto) 1.5H, Eosinophils # (Auto) 0.1, Basophils # (Auto) 0.1, Nucleated Red Blood Cells % (auto) 0.0, Anion Gap 14, Glomerular Filtration Rate 53.2, Lactic Acid Level 1.4, Calcium Level 9.2, Aspartate Amino Transf (AST/SGOT) 29, Alanine Aminotransferase (ALT/SGPT) 34, Alkaline Phosphatase 106, Total Bilirubin 0.8, Direct Bilirubin 0.1, Total Creatine Kinase 101, Creatine Kinase MB 1.4, Creatine Kinase MB Relative Index 1.39, Troponin I < 0.02, Total Protein 7.0, Albumin 3.3, Albumin/Globulin Ratio 0.89L, Amylase Level 25, Lipase 67L, Thyroid Stimulating Hormone (TSH) 0.625 CBC/BMP Laboratory Tests 03/07/19 14:36 Red Blood Count 4.93, Mean Corpuscular Volume 97.6 H, Mean Corpuscular Hemoglobin 32.3, Mean Corpuscular Hemoglobin Concent 33.1, Red Cell Distribution Width 12.8, Neutrophils (%) (Auto) 71.4 H, Lymphocytes (%) (Auto) 16.5 L, Monocytes (%) (Auto) 10.4 H, Eosinophils (%) (Auto) 0.6, Basophils (%) (Auto) 0 .6, Neutrophils # (Auto) 10.3 H, Lymphocytes # (Auto) 2.4, Monocytes # (Auto) 1.5 H, Eosinophils # (Auto) 0.1, Basophils # (Auto) 0.1 Microbiology Microbiology 03/07/19 Blood Culture, Received Pending 03/07/19 Blood Culture, Received Pending Home Medications Scheduled Alendronate Sodium (Alendronate Sodium) 10 Mg Tab, 10 MG PO DAILY Azithromycin (Azithromycin) 250 Mg Tab, 250 MG PO 3XW MON, WED, FRI Calcium Carbonate/Vitamin D3 (Calcium 500-Vit D3 200 Caplet) 1 Tab Tab, 1 TAB PO DAILY Cetirizine HCl (Cetirizine HCl) 10 Mg Tablet, 10 MG PO QHS Cholecalciferol (Vitamin D3) (Vitamin D3) 1,000 Unit Tab, 1,000 UNIT PO DAILY Ciprofloxacin HCl (Ciprofloxacin HCl) 500 Mg Tablet, 500 MG PO BID 1ST DOSE OF 7 DAY COURSE Metronidazole (Flagyl) 500 Mg Tablet, 500 MG PO TID TAKEN 1ST DOSE OF 7 DAY COURSE Prednisone (Prednisone) 10 Mg Tab, 10 MG PO DAILY Salmeterol/Fluticasone (Advair 500-50 Diskus) 28 Puff/Inhaler Aerp, 1 PUFF INH BID Theophylline Anhydrous (Theophylline Anhydrous) 300 Mg Tabcr, 300 MG PO BID Tiotropium [place] (Spiriva) 18 Mcg Cap, 1 INHALATION INH DAILY Scheduled PRN Albuterol Sulf (Albuterol Sulfate) 2.5 Mg/3 Ml Nebu, 2.5 MG INH QID PRN for SHORTNESS OF BREATH Albuterol Sulfate (Ventolin Hfa) 108 Mcg/Act Aer, 1 PUFF INH Q4H PRN for SHORTNESS OF BREATH Allergies Coded Allergies: Penicillins (Verified Allergy, Intermediate, HIVES, 03/07/19) latex (Verified Allergy, Intermediate, SKIN, 03/07/19) pneumococcal vaccine (Verified Allergy, Mild, LOCAL, 03/07/19) budesonide (Verified Allergy, Unknown, 03/07/19) A-FIB/CHADSVASC A-FIB History Current/History of A-Fib/PAF?: No Current PO Anticoag Therapy: No TIFFANY CONLEY MD Mar 07, 2019 17:49
[2019-03-07] MEDS: CIPROFLOXACIN 400 MG in IV 1 EA IV SCH (17:58)
[2019-03-07] MEDS ORDERED: HYDROMORPHONE HCL 0.5 MG/ 0.5 ML SYRINGE (J1170 PER 1) IV ONE (18:00)
[2019-03-07] MEDS: metroNIDAZOLE 500 MG in IV 1 EA IV SCH (19:16)
[2019-03-07 20:10] VITALS: BP 134/92
[2019-03-07] MEDS: ADVAIR HFA 230/21MCG INHALER INH SCH (20:31)
[2019-03-07 21:00] VITALS: BP 118/87
[2019-03-07] MEDS: HEPARIN SOD (PORCINE) 5000 UNITS/ML VIAL SC SCH (21:32)
[2019-03-07 21:44] VITALS: BP 129/84
[2019-03-07] MEDS ORDERED: MORPHINE 4 MG/ML 1ML VIAL/SYRINGE (J2270) IV PRN (22:15)
[2019-03-07] MEDS: HYDROMORPHONE HCL 0.5 MG/ 0.5 ML SYRINGE (J1170 PER 1) IV PRN (22:42)
[2019-03-07 23:44] VITALS: BP 122/66
[2019-03-08] VITALS (16 sets, daily range): BP systolic 105–171; BP diastolic 59–97
--- NOTE | 2019-03-08 00:08 | ECGEPIP ---
[facility] - ED Test Date: 2019-03-07 Pat Name: FRITZ GANDHI Department: Room: 01[facility] Gender: Female [employer] Operator: wayne : [id number] Requested By: RENETTA Palafox Order Number: [id number] Reading MD: Juan Maria Measurements Intervals [place] Rate: 124 P: 73 DC: 118 QRS: 5 QRSD: 92 T: 81 QT: 325 QTc: 468 Interpretive Statements SINUS TACHYCARDIA WITH SHORT DC INTERVAL INCOMPLETE RIGHT BUNDLE BRANCH BLOCK MODERATE T-WAVE ABNORMALITY, CONSIDER ANTERIOR ISCHEMIA SIMILAR TO 01/13/17 Electronically Signed on 03-08-2019 0:08:06 EDT by Juan Maria
[2019-03-08] MEDS: metroNIDAZOLE 500 MG in IV 1 EA IV SCH ×3 (03:19→20:29)
[2019-03-08] MEDS: NS 1,000 ML IV SCH ×2 (04:41→17:01)
[2019-03-08 05:11] LABS: HEMATOCRIT 39.9 % (36.0-47.0); MEAN CORPUSCULAR HEMOGLOBIN 31.1 pg (27.0-33.0); MEAN CORPUSCULAR HGB CONC 32.8 g/dl (32.0-36.5); MEAN CORPUSCULAR VOLUME 94.8 fl (80.0-96.0); PLATELET COUNT, AUTOMATED 260 10^3/uL (150-450); RED BLOOD COUNT 4.21 10^6/uL (4.00-5.40); WHITE BLOOD COUNT 10.9 10^3/uL (4.0-10.0)
[2019-03-08 05:15] LABS: HEMOGLOBIN 13.1 g/dl (12.0-15.5)
[2019-03-08] MEDS: HYDROMORPHONE HCL 0.5 MG/ 0.5 ML SYRINGE (J1170 PER 1) IV PRN (05:30)
[2019-03-08] MEDS: CIPROFLOXACIN 400 MG in IV 1 EA IV SCH ×2 (05:30→17:01)
[2019-03-08] MEDS: HEPARIN SOD (PORCINE) 5000 UNITS/ML VIAL SC SCH ×3 (05:30→20:29)
[2019-03-08 05:32] LABS: ALBUMIN 2.6 GM/DL (3.2-5.2); BILIRUBIN,TOTAL 0.6 MG/DL (0.2-1.0); CREATININE FOR GFR 1.03 MG/DL (0.55-1.30); GLOMERULAR FILTRATION RATE 59.2 (>51); POTASSIUM SERUM 3.6 MEQ/L (3.5-5.1); TOTAL PROTEIN 6.4 GM/DL (6.4-8.2)
[2019-03-08] MEDS: ADVAIR HFA 230/21MCG INHALER INH SCH ×2 (08:02→21:12)
[2019-03-08] MEDS: TIOTROPIUM INHALER/CAPSULE (SPIRIVA) INH SCH (08:03)
--- NOTE | 2019-03-08 08:14 | REP ---
Clinical: Diverticulitis with perforation. Technique: Single supine view of the abdomen and pelvis. Findings: Bowel gas pattern is relatively nonspecific and oral contrast material is identified within the colon without obvious extravasation. There is suggestion for pneumoperitoneum overlying the liver. No organomegaly. Skeletal structures are intact. Impression: No evidence for contrast extravasation. Small amount of pneumoperitoneum overlying the liver is suspected. Electronically Signed by Abdon Chavez MD 03/08/2019 08:05 A
[2019-03-08] MEDS ORDERED: methylPREDNISolone INJ 40 MG/1 ML VIAL (J2920) IV SCH (12:00)
--- NOTE | 2019-03-08 13:18 | CR ---
DATE OF CONSULTATION: 03/07/2019 REASON FOR CONSULTATION: Contained sigmoid diverticular perforation. HISTORY OF THE PRESENT ILLNESS: The patient is a pleasant, 53-year-old woman who has a known history of diverticulosis and several prior episodes of diverticulitis. She reports that starting on approximately Monday evening, 03/04/2019, she noted a sensation of some fullness and mild discomfort. By the morning of 03/05/2019, she had noticed pain across the lower abdomen. She developed a fever and chills which had waxed and waned over the last several days. She saw her primary physician on 03/06/2019, and she was started on oral antibiotics apparently with ciprofloxacin and Flagyl. He also scheduled a CT scan of the abdomen and pelvis to be done on the morning of , 03/07/2019. She reported no significant change in her symptoms by . She had a CT scan of the abdomen and pelvis done at [facility] in the morning and followed up with her primary physician later in the morning. The CT scan reportedly showed a contained diverticular perforation in the sigmoid colon. There was no evidence of any free air. She was referred to the emergency department and has been admitted by the hospitalist, Dr. Kemp for care. She is on antibiotics and I was asked to evaluate her and follow her for treatment of her diverticulitis with contained perforation. ALLERGIES: The patient reports allergies to BUDESONIDE, LATEX, PNEUMOCOCCAL VACCINE, and PENICILLIN. HOME MEDICATIONS (include): - albuterol inhalers and nebulizers - alendronate sodium - calcium carbonate with vitamin D - cetirizine - vitamin D3 - ciprofloxacin 500 mg twice daily - metronidazole 500 mg three times daily - prednisone 10 mg by mouth daily - Advair Diskus twice daily - theophylline 300 mg twice daily - Spiriva inhaler daily SURGICAL HISTORY: Significant for a section and tubal ligation. She has had colonoscopies on three occasions. She has undergone a left breast biopsy. She underwent a drainage of a liver abscess back in 2013. She had an incarcerated femoral hernia repaired in May of 2017. MEDICAL PROBLEMS: Include asthma and report of chronic obstructive pulmonary disease. She has diverticulosis and previous diverticulitis. She has a history of osteoporosis. She has had Clostridium difficile colitis in the past. SOCIAL HISTORY: The patient is a nonsmoker and denies any use of alcohol or drugs. 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 She is also caring for her aging mother who has some dementia and she is being cared for in her home. FAMILY HISTORY: Noncontributory as to her current problem. REVIEW OF SYSTEMS: Shows no history of cardiac or respiratory symptoms recently. She denies any melena or hematochezia. She has no history of jaundice or hepatitis or pancreatitis. There is no history of peptic ulcer disease. There are no new bone or joint issues. She denies a history of seizure or severe headaches. There is no history of deep venous thrombosis (DVT) or pulmonary embolus. PHYSICAL EXAMINATION: Reveals a very pleasant middle-aged appearing woman lying quietly in the hospital bed in no apparent distress. Her pulse on the monitor is approximately 115. The patient reports that her pulse is generally running in the low 100s. Her vital signs show that she had a maximum temperature (Tmax) earlier in the day of 100.3, but has defervesced at the time of this evaluation. Her pulse is as noted and her blood pressure has been good. The patient is alert and oriented. Skin is warm and dry. Sclerae are anicteric. Mucous membranes are moist. The neck is supple without mass or bruit. Heart exam shows irregular tachycardia. The lungs are clear to auscultation. The abdomen is mildly obese. She has active bowel sounds. She has some scarring in the lower abdomen consistent with her prior surgery. There is no sign of hernia. There is no tympany to percussion throughout the abdomen and no tenderness to percussion. On palpation, she has some very mild tenderness in the right lower quadrant and right suprapubic area with some moderate direct tenderness very low in the left lower quadrant and the suprapubic area. There is no rebound or guarding. Extremities are without edema and she has palpable radial and pedal pulses. Her laboratory studies from earlier in the day show a white count of 14,000 with a differential showing 71% neutrophils, 16% lymphocytes and 10% monocytes. Hemoglobin is 16 with a hematocrit of 48 and platelet count is 283,000. Chemistry profile shows normal electrolytes with the exception of her carbon dioxide being slightly low at 17. BUN is 18 with a creatinine of 1.1 and her glucose is 98. Liver function tests are entirely normal. Cardiac injury profile is negative with a troponin of less than 0.02. Amylase and lipase are normal. Theophylline level was 10.1. IMAGING: The imaging is not available for my review right at this time, though I do have a copy of the report which indicates that there is no free air or significant free fluid and that she has some air contained within the mesentery of the sigmoid colon. IMPRESSION: 1. Contained perforation of sigmoid diverticulum. 2. Asthma. 3. Tachycardia. 4. History of Clostridium difficile colitis previously. RECOMMENDATIONS: At this point, I would recommend continuing with the antibiotics as you are. She is being closely monitored in the intensive care unit. It would be reasonable to keep her nothing by mouth for at least the first day here in the hospital. She appears fairly comfortable currently though she had received a small amount of Dilaudid earlier. Analgesics can be administered as necessary. I would anticipate that she will resolve her contained perforation and diverticulitis with antibiotic therapy and not come to require surgical intervention acutely. However, I have had one patient within the last several years who actually progressed from a contained perforation to a free perforation and required urgent surgery. I will continue to follow her while she is here in the hospital as we see how she progresses. PRABHAKAR
[2019-03-08] MEDS ORDERED: MORPHINE 4 MG/ML 1ML VIAL/SYRINGE (J2270) IV PRN (15:15)
--- NOTE | 2019-03-08 16:31 | IPN ---
DATE: 03/08/2019 HISTORY: Patient was admitted yesterday with a contained perforation of sigmoid diverticulum. She has been receiving antibiotics since admission. She reports that she feels somewhat better today with less discomfort. She has no nausea or vomiting. She has been passing some flatus. Vital signs show that she has remained afebrile since yesterday afternoon. Her pulse today is generally in the range of 100-110. Her blood pressure is good. Room air oxygen saturations are in the low 90s. Intake and output show that yesterday she had 3000 in with 600 out, and so far today she has 650 mL of urine output. Physical exam shows that the patient appears quite comfortable. She is alert and oriented. The abdomen is nondistended. She has active bowel sounds. There is no tenderness to percussion. Palpation still reveals some mild to moderate tenderness low in the left lower quadrant and suprapubic area. There is no rebound or guarding. Laboratory studies today show a white count of 11 with a hemoglobin of 13, hematocrit of 40 and a platelet count of 260,000. Chemistry profile shows a sodium of 141, potassium 3.6, chloride 113, CO2 of 19, BUN of 10, creatinine 1.0 and a glucose of 84. IMAGING: She had an abdominal x-ray today that shows excellent progression of her oral contrast from yesterday's CT scan to the colon and actually there is some contrast all the way down into her rectum. The radiologist interpreted the study as suggesting some possible pneumoperitoneum overlying the liver. I have reviewed the image personally and I do not find the findings convincing for free air, although it was only a flat x-ray. She certainly has no physical evidence of peritonitis. IMPRESSION: The patient appears to be doing well with her antibiotic therapy at this point. RECOMMENDATIONS: I spoke with Dr. Kemp by phone this morning. I have suggested that I would see no problem considering some clear liquids for this patient when he feels it would be medically appropriate. Also, I think that transfer out of the intensive care unit would not be unreasonable. I think her chance of deteriorating abruptly is extremely small in that she is not showing signs of sepsis at this point. I would anticipate that she will continue to improve with antibiotics. Dr. Subramanian my partner will be covering over this weekend and I will be back on 02/22/2019, to continue her care at that time. PRABHAKAR
--- NOTE | 2019-03-08 19:53 | IPNPDOC ---
Date Seen The patient was seen on 03/08/19. Progress Note SUBJECTIVE: Navi was seen and examined this morning while lying in her ICU bed. She states that her abdominal discomfort, bloating, and increased pressure have all improved from yesterday when hospitalist team examined her in the emergency department. She expresses concern about being off of her theophylline. She remains on telemetry, is being administered antibiotics, IV fluids, continues to be NPO. She has not had any bowel movements since one episode of diarrhea while she was in the emergency department. She is urinating without any issues. She reports that she had brief overnight episode where she was placed on supplemental oxygen for a short period of time time due to a decrease in her oxygen saturation. Otherwise, she has been breathing on room air. She endorses occasional nonproductive cough. She denies fever, chills, night sweats, feeling nauseated, vomiting, pleuritic chest pain, shortness of breath, chest pain, chest pressure, or palpitations. She underwent a UB imaging this morning. She is also being followed by general surgery. OBJECTIVE PHYSICAL EXAMINATION: VITAL SIGNS: Please see below. GENERAL: Navi is a pleasant and cooperative woman who appears her stated age. She appears to be resting comfortably in her bed, with no signs of acute respiratory or abdominal distress. She is speaking in full sentences, maintains good eye contact, and responds appropriately to questions and commands. She seems particularly concerned about having her theophylline held. HEENT: Normocephalic, atraumatic. Trachea is midline. Neck is supple. CARDIOVASCULAR: A hsu is tachycardic with normal S1, S2. No murmurs are appreciated. There is no lower extremity edema. 2+ palpable radial and posterior tibial pulses bilaterally. RESPIRATORY: There are no wheezes or rhonchi appreciated on auscultation. There is symmetric chest expansion with respiration. There is no accessory muscle use during respiration. There are no retractions. Patient is breathing on room air. ABDOMINAL: Abdomen is soft with mild tenderness in the left lower and right lower quadrants. There is mild rebound tenderness in the left lower quadrant. There is dullness to percussion of the left lower quadrant. There is no tenderness to percussion of any abdominal quadrants. Normoactive bowel sounds are present. There is an area of bruising over the left lower quadrant, likely associated with patient's administration of subcutaneous heparin. EXTREMITIES: Patient has 5 out of 5 muscle strength testing of upper extremities and lower extremities bilaterally. NEUROLOGICAL:. Patient is awake, alert and oriented 3. She is responding appropriately to questions and commands. Sensation to light touch is intact upper extremities and lower extremities bilaterally. PSYCHOLOGICAL: Appropriate mood, appropriate affect. LABORATORY DATA, IMAGING STUDIES, MICROBIOLOGY: Please see below. ASSESSMENT AND PLAN: This is a 53-year-old female who presented to the emergency department yesterday (03/07). After having an outpatient CT scan in the morning that showed acute diverticulitis with a contained perforation and no abscess. Patient's primary care physician recommended she go to the emergency department right away. Patient was feeling significant lower abdominal tenderness with bloating and tightness. She states that she has had 4-5 previous episodes of acute diverticulitis and has never been seen previously by general surgeon. She began to have fever, chills, abdominal pain, diminished appetite, and 3-4 loose stools on Monday of this week that progressed. She was admitted to the ICU and IV fluids with IV antibiotics and was made NPO. General surgery was consulted and are following the patient as well. She also has chronic asthma, follows with pulmonology as an outpatient. #Acute sigmoid diverticulitis with contained perforation -Patient has had multiple episodes of acute diverticulitis in the past. -Patient had a KUB imaging performed this morning which showed possible pneum operitoneum under the right hemidiaphragm. -Patient is doing much better as far symptoms and is also being followed by general surgery. -Continue with patient's ciprofloxacin (day #2) and metronidazole (day #2.) -Hospitalist team has communicated with general surgery, and due to patient's improvement and lack of peritoneal signs, she was progressed to a clear liquid diet today. -Patient is receiving Dilaudid for pain. -A follow-up KUB was ordered for tomorrow morning, as well as a hollow up CBC and CMP -Lactic acid was measured yesterday and found to be unremarkable. -3 blood cultures are pending. #Chronic asthma -Patient is breathing on room air and does not appear to be in any acute respi ratory distress. -Continue with patient's albuterol nebulizer prn, albuterol inhaler prn, Advair, and Spiriva respiratory treatments. -Patient follows with pulmonology as outpatient (Dr. Hudson) - takes oral prednisone as outpatient. Therefore, to avoid adrenal suppression, patient was started today on IV Solu-Medrol 20 mg daily. #Sinus tachycardia -EKG upon visitation the ED yesterday showed sinus tachycardia with short NV interval, incomplete right bundle branch block, and moderate T wave abnormality -Measured troponins yesterday were negative -This is most likely secondary to patient's long-term use of theophylline and overall pain/discomfort. -Theophylline levels were issued yesterday on day of admittance, and found to be within normal limits. -Continue patient on telemetry. DVT prophylaxis: Patient receiving 5000 units of subcutaneous heparin bid. DISPOSITION: Patient is progressing well and does not appear to be in any acute pain or discomfort. Patient was progressed to a clear liquid diet and will remain in the ICU for now, with probable downgrade tomorrow. VS, I&O, 24H, Fishbone Vital Signs/I&O Vital Signs Date Time Temp Pulse Resp B/P (MAP) Pulse Ox O2 Delivery O2 Flow Rate FiO2 03/08/19 16:00 99.6 106 20 131/89 (103) 93 03/08/19 04:00 1.0 03/07/19 19:45 Room Air I&O- Last 24 Hours up to 6 AM 03/08/19 06:00 Intake Total 3660 ml Output Total 1000 ml Balance 2660 ml Laboratory Data 24H LABS Laboratory Tests 2 03/07/19 21:30: Bedside Glucose (Misc Panel) 86 03/08/19 00:31: Bedside Glucose (Misc Panel) 79 03/08/19 04:55: Nucleated Red Blood Cells % (auto) 0.0, Anion Gap 9, Glomerular Filtration Rate 59.2, Lactic Acid Level 1.1, Blood Urea Nitrogen 10, Creatinine 1.03, Sodium Level 141, Potassium Level 3.6, Chloride Level 113H, Carbon Dioxide Level 19L, Calcium Level 8.0L, Aspartate Amino Transf (AST/SGOT) 16, Alanine Aminotransferase (ALT/SGPT) 25, Alkaline Phosphatase 84, Total Bilirubin 0.6, Total Protein 6.4, Albumin 2.6#L, Albumin/Globulin Ratio 0.68L CBC/BMP Laboratory Tests 03/08/19 04:55 Red Blood Count 4.21, Mean Corpuscular Volume 94.8, Mean Corpuscular Hemoglobin 31.1, Mean Corpuscular Hemoglobin Concent 32.8, Red Cell Distribution Width 13.1, Calcium Level 8.0 L, Aspartate Amino Transf (AST/SGOT) 16, Alanine Aminotransferase (ALT/SGPT) 25, Alkaline Phosphatase 84, Total Bilirubin 0.6, Total Protein 6.4, Albumin 2.6 #L Microbiology Microbiology 03/07/19 Blood Culture - Preliminary, Resulted No growth after 24 hours . All specim... 03/07/19 Blood Culture - Preliminary, Resulted No growth after 24 hours . All specim... 03/07/19 Blood Culture - Preliminary, Resulted No growth after 24 hours . All specim... GME ATTESTATION GME ATTESTATION My faculty preceptor for this patient encounter was physically present during the encounter and was fully available. All aspects of the patient interview, examination, medical decision making process, and medical care plan development were reviewed and approved by the faculty preceptor. The faculty preceptor is aware and concurs with the plan as stated in the body of this note and will attest to such by his/her cosignature. ATTENDING NOTE Patient was seen and examined by me this morning with the residents. Agree with the above assessment and plan GALDINO VALENTINO PGY-1 Mar 08, 2019 19:52 TIFFANY CONLEY MD Mar 09, 2019 16:59
[2019-03-09] VITALS: BP 134/80
[2019-03-09 04:00] VITALS: BP 168/95
[2019-03-09] MEDS: metroNIDAZOLE 500 MG in IV 1 EA IV SCH ×3 (04:58→20:16)
[2019-03-09] MEDS: NS 1,000 ML IV SCH (04:58)
[2019-03-09 05:34] LABS: HEMATOCRIT 40.6 % (36.0-47.0); HEMOGLOBIN 13.4 g/dl (12.0-15.5); MEAN CORPUSCULAR HEMOGLOBIN 32.1 pg (27.0-33.0); MEAN CORPUSCULAR VOLUME 97.1 fl (80.0-96.0); PLATELET COUNT, AUTOMATED 253 10^3/uL (150-450); RED BLOOD COUNT 4.18 10^6/uL (4.00-5.40); WHITE BLOOD COUNT 7.4 10^3/uL (4.0-10.0)
[2019-03-09 05:39] LABS: ALBUMIN 2.6 GM/DL (3.2-5.2); ALT/SGPT 20 U/L (12-78); BILIRUBIN,TOTAL 0.5 MG/DL (0.2-1.0); BLOOD UREA NITROGEN 10 MG/DL (7-18); CALCIUM LEVEL 7.6 MG/DL (8.5-10.1); CARBON DIOXIDE LEVEL 18 MEQ/L (21-32); CHLORIDE LEVEL 110 MEQ/L (98-107); CREATININE FOR GFR 0.71 MG/DL (0.55-1.30); GLOMERULAR FILTRATION RATE > 60.0 (>51); GLUCOSE, FASTING 113 MG/DL (70-100); POTASSIUM SERUM 4.1 MEQ/L (3.5-5.1); SODIUM LEVEL 138 MEQ/L (136-145); TOTAL PROTEIN 6.3 GM/DL (6.4-8.2)
[2019-03-09] MEDS: HEPARIN SOD (PORCINE) 5000 UNITS/ML VIAL SC SCH ×3 (06:07→21:06)
[2019-03-09] MEDS: CIPROFLOXACIN 400 MG in IV 1 EA IV SCH ×2 (06:07→17:43)
[2019-03-09 08:00] VITALS: BP 155/92
[2019-03-09] MEDS: TIOTROPIUM INHALER/CAPSULE (SPIRIVA) INH SCH (08:04)
[2019-03-09] MEDS: ADVAIR HFA 230/21MCG INHALER INH SCH ×2 (08:05→19:36)
--- NOTE | 2019-03-09 08:23 | REP ---
ABDOMEN SUPINE: 03/09/2019. Comparison: KUB 03/08/2019, CT abdomen pelvis 03/07/2019. Clinical history: Perforated diverticulosis on CT, suspected pneumoperitoneum on KUB yesterday. Findings: Single view shows some pelvic surgical clips bilaterally, unchanged. Oral contrast remains in the colon, more on the right side but overall less. There is trace amounts in the transverse left colon and into the rectosigmoid. The suspected pneumoperitoneum near the diaphragm on the previous study is not reproduced on today's examination but this exam is rather insensitive for pneumoperitoneum. There is no gross evidence for extravasation of the oral contrast. The bones are intact. There is no abnormality of the gas pattern or distension of bowel loops. Electronically Signed by Chilo Lyle MD 03/09/2019 07:29 P
--- NOTE | 2019-03-09 09:42 | IPNPDOC ---
Text Note Date of Service The patient was seen on 03/09/19. NOTE No acute events overnight. She is tolerating diet, and has no pain. Denies na usea, emesis, fevers. VSSAF NAD abd - soft, nt, nd labs - below wbc - 10.9>7.4 A) 53y/o female with complicated diverticulitis that is resolving P) low fiber diet ambulate PO abx d/c home Trevin Subramanian DO VS,Fishbone, I+O VS, Fishbone, I+O Laboratory Tests 03/09/19 04:57 Red Blood Count 4.18, Mean Corpuscular Volume 97.1 H, Mean Corpuscular Hemogl obin 32.1, Mean Corpuscular Hemoglobin Concent 33.0, Red Cell Distribution Width 12.6, Calcium Level 7.6 L, Aspartate Amino Transf (AST/SGOT) 13, Alanine Aminotransferase (ALT/SGPT) 20, Alkaline Phosphatase 76, Total Bilirubin 0.5, Total Protein 6.3 L, Albumin 2.6 L Vital Signs Date Time Temp Pulse Resp B/P (MAP) Pulse Ox O2 Delivery O2 Flow Rate FiO2 03/09/19 08:00 98.2 100 16 155/92 (113) 97 03/08/19 04:00 1.0 03/07/19 19:45 Room Air I&O- Last 24 Hours up to 6 AM 03/09/19 06:00 Intake Total 2898 ml Output Total 1575 ml Balance 1323 ml JONATHAN SUBRAMANIAN DO Mar 09, 2019 09:42
[2019-03-09 12:00] VITALS: BP 152/82
--- NOTE | 2019-03-09 12:03 | IPNPDOC ---
Text Note Date of Service The patient was seen on 03/09/19. NOTE Patient was seen and examined this morning. Tolerated the clear liquid diet. KUB reviewed. The patient is clinically getting better. No overnight events recorded. PHYSICAL EXAM: GENERAL: Patient is awake, alert, and oriented times three. Mild distress because of abdominal pain HEENT: Pupils equal round and reactive to light and accommodation. HEART: S1, S2, regular rate and rhythm. LUNGS: Clear to auscultation bilaterally. ABDOMEN: Soft, nondistended. There is mild tender to palpation over the left lower and right lower quadrant. No rebound, no guarding no rigidity palpation. EXTREMITIES: No clubbing, cyanosis, or edema. LABS: Mood IMAGING: CT abdomen and pelvis which was done at the outside facility shows fairly extensive sigmoid diverticulitis and contained perforation with no abscess collection at this time ASSESSMENT/PLAN: This is a 53-year-old female with past medical history of asthma, recurrent diverticulitis, is admitted currently for possible extensive diverticulitis with contained perforation for which surgery was consulted and they recommended conservative management with only IV antibiotics. The patient has been put on clear liquid diet, which she started which will be escalated to full liquid diet now. From surgical standpoint, she is cleared to be discharged. The patient will be started on from ICU today and monitored and once she is able to tolerate a soft diet. Will possibly be able to be discharged. Continue IV Cipro and Flagyl which can be switched to oral for total of 10 days on discharge. Possible discharge in the morning tomorrow 1. Acute complicated diverticulitis with contained perforation. CAT scan as above. KUB revealed . IV Flagyl and Rocephin day 3. surgery was consulted and they recommended conservative management with only IV antibiotics. The patient has been put on clear liquid diet, which she started which will be escalated to full liquid diet now. From surgical standpoint, she is cleared to be discharged. He require outpatient follow-up with surgery for possible partial colectomy once this acute event is subsided 2. Asthma. Patient takes long-acting beta agonist, long-acting Bhasker Epps agonists and inhaled corticosteroid, which all will be continued. Theophylline restarted Disposition. Likely home tomorrow DVT prophylaxis with heparin Viridiana Brandon MD VS,Leena, I+O VS, Leena, I+O Laboratory Tests 03/09/19 04:57 Red Blood Count 4.18, Mean Corpuscular Volume 97.1 H, Mean Corpuscular Hemoglobin 32.1, Mean Corpuscular Hemoglobin Concent 33.0, Red Cell Distribution Width 12.6, Calcium Level 7.6 L, Aspartate Amino Transf (AST/SGOT) 13, Alanine Aminotransferase (ALT/SGPT) 20, Alkaline Phosphatase 76, Total Bilirubin 0.5, Total Protein 6.3 L, Albumin 2.6 L Vital Signs Date Time Temp Pulse Resp B/P (MAP) Pulse Ox O2 Delivery O2 Flow Rate FiO2 03/09/19 08:00 98.2 100 16 155/92 (113) 97 03/08/19 04:00 1.0 03/07/19 19:45 Room Air I&O- Last 24 Hours up to 6 AM 03/09/19 06:00 Intake Total 2898 ml Output Total 1575 ml Balance 1323 ml TIFFANY CONLEY MD Mar 09, 2019 12:03
[2019-03-09] MEDS: THEOPHYLLINE (THEO-24) 100MG SR **CAPSULE PO SCH ×2 (12:07→20:16)
[2019-03-09] MEDS: LR 1,000 ML IV SCH (12:08)
[2019-03-09] MEDS: ACETAMINOPHEN TAB 650MG DOSE (2X325MG) PO PRN ×2 (12:08→18:18)
[2019-03-09 16:00] VITALS: BP 127/73
[2019-03-09 20:00] VITALS: BP 160/90
[2019-03-09] MEDS ORDERED: MORPHINE 4 MG/ML 1ML VIAL/SYRINGE (J2270) IV ONE ×2 (20:30→21:15)
[2019-03-09] MEDS ORDERED: HYDROMORPHONE HCL 0.5 MG/ 0.5 ML SYRINGE (J1170 PER 1) IV ONE (23:15)
[2019-03-10] VITALS: BP 150/62
[2019-03-10] MEDS: metroNIDAZOLE 500 MG in IV 1 EA IV SCH (03:13)
[2019-03-10] MEDS: ACETAMINOPHEN TAB 650MG DOSE (2X325MG) PO PRN (03:13)
[2019-03-10 04:00] VITALS: BP 135/65
[2019-03-10] MEDS: CIPROFLOXACIN 400 MG in IV 1 EA IV SCH (05:03)
[2019-03-10] MEDS: HEPARIN SOD (PORCINE) 5000 UNITS/ML VIAL SC SCH ×3 (05:03→21:53)
[2019-03-10 08:00] VITALS: BP 115/82
[2019-03-10 08:23] LABS: HEMATOCRIT 39.7 % (36.0-47.0); HEMOGLOBIN 13.9 g/dl (12.0-15.5); MEAN CORPUSCULAR HEMOGLOBIN 32.6 pg (27.0-33.0); MEAN CORPUSCULAR VOLUME 93.2 fl (80.0-96.0); PLATELET COUNT, AUTOMATED 327 10^3/uL (150-450); RED BLOOD COUNT 4.26 10^6/uL (4.00-5.40)
[2019-03-10 08:48] LABS: ALBUMIN 2.9 GM/DL (3.2-5.2); ALT/SGPT 18 U/L (12-78); BILIRUBIN,TOTAL 0.5 MG/DL (0.2-1.0); BLOOD UREA NITROGEN 4 MG/DL (7-18); CARBON DIOXIDE LEVEL 21 MEQ/L (21-32); CHLORIDE LEVEL 108 MEQ/L (98-107); CREATININE FOR GFR 0.94 MG/DL (0.55-1.30); GLOMERULAR FILTRATION RATE > 60.0 (>51); GLUCOSE, FASTING 102 MG/DL (70-100); POTASSIUM SERUM 3.1 MEQ/L (3.5-5.1); SODIUM LEVEL 140 MEQ/L (136-145); TOTAL PROTEIN 5.8 GM/DL (6.4-8.2)
[2019-03-10] MEDS: predniSONE 10 MG TAB PO SCH (09:03)
[2019-03-10] MEDS: THEOPHYLLINE (THEO-24) 100MG SR **CAPSULE PO SCH ×2 (09:03→21:53)
[2019-03-10] MEDS: ADVAIR HFA 230/21MCG INHALER INH SCH ×2 (09:08→20:02)
[2019-03-10] MEDS: TIOTROPIUM INHALER/CAPSULE (SPIRIVA) INH SCH (09:08)
[2019-03-10] MEDS: MORPHINE 4 MG/ML 1ML VIAL/SYRINGE (J2270) IV PRN ×3 (09:16→21:54)
[2019-03-10] MEDS ORDERED: ISOVUE-370 76% 100ML VIAL (Q9967) As Ordered ONE (09:31)
--- NOTE | 2019-03-10 09:58 | IPNPDOC ---
Subjective Date Seen The patient was seen on 03/10/19. Subjective Chief Complaint/HPI Planning of pain in the lower abdomen is still has no appetite General: Denies: ROS Unobtainable, Chills, Night Sweats, Fatigue, Malaise, Normal Appetite, Other Symptoms Constitutional: Denies: Chills, Fever, Malaise, Night Sweats, Weakness, Fatigue, Weight Loss, Lethargy, Other Eyes: Denies: Pain, Vision change, Conjunctivae inflammation, Eyelid inflammation, Redness, Other ENT: Denies: Head Aches, Ear Pain, Dysphagia, Sinus Congestion, Post Nasal Drip , Sore Throat, Epistaxis, Other Symptoms Skin: Denies: Rash, Lesions, Jaundice, Bruising, Itching, Dry, Breakdown, Nail Changes, Other Pulmonary: Denies: Dyspnea, Cough, Pleuritic Chest Pain, Other Symptoms Cardiovascular: Denies: Chest Pain, Palpitations, Orthopnea, Paroxysmal Noc. Dyspnea, Edema, Lt Headedness, Other Symptoms Gastrointestinal: Reports: Abdominal Pain Genitourinary: Denies: Dysuria, Frequency, Incontinence, Hematuria, Retention, Other Symptoms Hematologic: Denies: Bruising, Bleeding Excessively, Petecchia, Purpura, Enlarged Lymph Nodes, Other Hematologic Endocrine: Denies: Polydipsia, Polyphagia, Polyuria, Heat Intolerance, Cold Intolerance, Other Endocrine Sx Psych: Denies: Mood Normal, Anxiety, Depression, Memory Issues, Thoughts of Self Harm, Anger, Thoughts of Harming Other, Other Psych Objective Physical Examination General Exam: Positive: Alert, Cooperative Eye Exam: Positive: PERRLA, Conjunctiva & lids normal ENT Exam: Positive: Mucous membr. moist/pink Neck Exam: Positive: Supple Chest Exam: Positive: Clear to auscultation, Normal air movement Heart Exam: Positive: Rate Normal, Normal S1, Normal S2 Abdomen Exam: Positive: Other (positive tenderness at left lower quadrant on palpation. Bowel sounds present) Extremity Exam: Positive: Normal pulses Skin Exam: Positive: Nl turgor and temperature Assessment /Plan Problems (1) Diverticulitis large intestine Status: Acute Problem Text: Patient is still complaining of abdominal pain and left lower quadrant this morning Status. CBC, CMP was ordered with WBC count of more than 14,000 Patient was febrile last night and received morphine and Dilaudid and Tylenol for pain and fever Will DC IV Cipro and Flagyl Started Merrem 1 g IV every 8 hour Blood cultures [address] of the abdomen and pelvis to rule out abscess or reperforation Pain management Was the CAT scan report is available. Will notify surgery regarding the report Patient will be kept nothing by mouth again Addendum: CT abdomen consistent with 3 x 3 x 3 cm intra-abdominal abscesses with some air but no free air in the abdomen. Spoke with Dr. Subramanian and he agreed with the request for IR drainage of the abscess. I Will place an order for CT-guided IR drainage of intra-abdominal abscess in a.m. (2) Intra-abdominal abscess Status: Acute Problem Text: Secondary to diverticular perforation IR drainage with CT guidance has been requested Follow cultures Patient is on clear liquid diet Continue meropenem cbc in a.m. Plan/VTE VTE Prophylaxis Ordered?: Yes VS, I&O, 24H, Fishbone Vital Signs/I&O Vital Signs Date Time Temp Pulse Resp B/P (MAP) Pulse Ox O2 Delivery O2 Flow Rate FiO2 03/10/19 09:16 16 03/10/19 08:00 98.8 126 115/82 (93) 97 03/08/19 04:00 1.0 03/07/19 19:45 Room Air I&O- Last 24 Hours up to 6 AM 03/10/19 06:00 Intake Total 3120 ml Output Total 1750 ml Balance 1370 ml Laboratory Data 24H LABS Laboratory Tests 2 03/10/19 08:13: Nucleated Red Blood Cells % (auto) 0.0, Anion Gap 11, Glomerular Filtration Rate > 60.0, Blood Urea Nitrogen 4#L, Creatinine 0.94, Sodium Level 140, Potassium Level 3.1#L, Chloride Level 108H, Carbon Dioxide Level 21, Calcium Level 8.0L, Aspartate Amino Transf (AST/SGOT) 15, Alanine Aminotransferase (ALT/SGPT) 18, Alkaline Phosphatase 84, Total Bilirubin 0.5, Total Protein 5.8L, Albumin 2.9L, Albumin/Globulin Ratio 1.00 CBC/BMP Laboratory Tests 03/10/19 08:13 Red Blood Count 4.26, Mean Corpuscular Volume 93.2, Mean Corpuscular Hemoglobin 32.6, Mean Corpuscular Hemoglobin Concent 35.0, Red Cell Distribution Width 12.8, Calcium Level 8.0 L, Aspartate Amino Transf (AST/SGOT) 15, Alanine Aminotransferase (ALT/SGPT) 18, Alkaline Phosphatase 84, Total Bilirubin 0.5, Total Protein 5.8 L, Albumin 2.9 L Microbiology Microbiology 03/07/19 Blood Culture - Preliminary, Resulted No Growth after 48 hours. All Specime... 03/07/19 Blood Culture - Preliminary, Resulted No Growth after 48 hours. All Specime... 03/07/19 Blood Culture - Preliminary, Resulted No Growth after 48 hours. All Specime... JAYLYN GAMA MD Mar 10, 2019 09:58
--- NOTE | 2019-03-10 11:28 | REP ---
CT ABDOMEN PELVIS WITH IV CONTRAST ONLY: 03/10/2019. Clinical history: Lower abdominal pain. Perforated sigmoid diverticulosis. Comparison: CT 03/07/2019. Technique: Bolus of 100 ml Isovue 370 scanning through the abdomen pelvis with coronal and sagittal reconstructions. Findings: CT abdomen: There is some new of subsegmental atelectatic change in the left lower lobe, but no effusion or dense consolidation. Heart is not enlarged. No pericardial thickening or effusion. Liver is unchanged with a few small hypodensities consistent with cysts. Small hiatal hernia. Gallbladder shows no calcified stone or mass. Spleen is unremarkable. There is no ascites in the upper abdomen. Adrenal glands normal. Pancreas unremarkable. The kidneys without hydronephrosis, mass or stone. Small bowel loops unremarkable abdominal portion of the colon shows some oral contrast remaining from the CT 3 days ago. There is no sign of obstruction to the colon. There are some scattered diverticula in the left colon in the abdomen. Lung window review of all CT slices in the abdomen shows no evidence of free air in the abdominal portion of this exam. Note no ascites in the upper abdomen. Bones unchanged. CT pelvis: Sigmoid diverticulitis is again seen. The area of sigmoid diverticular perforation now shows a confluent air fluid collection with previously only a small air pockets. The collection measures 3.5 x 3 x 3 cm. Inflammatory changes in the adjacent sigmoid remaining. There is diverticulosis throughout the distal left colon, sigmoid to the rectosigmoid junction only the mid sigmoid shows a diverticulitis. I do not see generalized ascites. No definite adenopathy. The cecum was unremarkable. Bladder shows no mass or wall thickening. Uterus tilted towards the right side of the pelvis with no pelvic mass otherwise no ventral or inguinal hernia. Impression: 1. Perforated diverticulitis now shows diverticular abscess developed over the past 3 days measuring 3.5 x 3 x 3 cm adjacent to the mid left sigmoid just to the left of midline with an air-fluid level in it now. There is no free air in the abdomen. The free air in the pelvis is now coalescent into this abscess cavity. No free fluid or adenopathy. No other interval change. The abscess appears covered from various approaches with small bowel, colon, blood vessels and bone interposed between it and the skin surface. Electronically Signed by Chilo Lyle MD 03/10/2019 07:02 P
[2019-03-10 12:00] VITALS: BP 139/99
[2019-03-10] MEDS: KCL 10MEQ/100ML SWI (KRUN) 10 MEQ in IV 1 EA IV SCH ×2 (14:25→14:28)
[2019-03-10] MEDS: MEROPENEM INJ 1 GM in IV 1 EA IV SCH ×2 (14:27→18:42)
[2019-03-10 16:00] VITALS: BP 150/90
[2019-03-10] MEDS: LR 1,000 ML IV SCH (16:18)
[2019-03-10 20:00] VITALS: BP 138/93
[2019-03-11] VITALS (8 sets, daily range): BP systolic 131–156; BP diastolic 65–90
[2019-03-11] MEDS: MEROPENEM INJ 1 GM in IV 1 EA IV SCH ×3 (03:59→18:04)
[2019-03-11 05:08] LABS: BASO # 0.1 10^3/uL (0.0-0.2); BASO % 0.4 % (0.0-1.0); EOS # 0.2 10^3/uL (0.0-0.5); EOS % 1.6 % (0.0-3.0); HEMATOCRIT 39.1 % (36.0-47.0); HEMOGLOBIN 13.2 g/dl (12.0-15.5); LYMPH # 3.1 10^3/uL (1.5-5.0); LYMPH % 22.9 % (24.0-44.0); MEAN CORPUSCULAR HEMOGLOBIN 31.7 pg (27.0-33.0); MEAN CORPUSCULAR HGB CONC 33.8 g/dl (32.0-36.5); MONO % 7.3 % (0.0-5.0); NEUTROPHILS # 8.9 10^3/uL (1.5-8.5); NEUTROPHILS % 66.8 % (36.0-66.0); PLATELET COUNT, AUTOMATED 366 10^3/uL (150-450); RED BLOOD COUNT 4.16 10^6/uL (4.00-5.40); WHITE BLOOD COUNT 13.4 10^3/uL (4.0-10.0)
[2019-03-11] MEDS: HEPARIN SOD (PORCINE) 5000 UNITS/ML VIAL SC SCH ×3 (05:08→21:32)
[2019-03-11 05:29] LABS: ALBUMIN 2.6 GM/DL (3.2-5.2); ALT/SGPT 17 U/L (12-78); BILIRUBIN,TOTAL 0.5 MG/DL (0.2-1.0); BLOOD UREA NITROGEN 2 MG/DL (7-18); CALCIUM LEVEL 8.4 MG/DL (8.5-10.1); CARBON DIOXIDE LEVEL 25 MEQ/L (21-32); CHLORIDE LEVEL 106 MEQ/L (98-107); CREATININE FOR GFR 0.89 MG/DL (0.55-1.30); GLOMERULAR FILTRATION RATE > 60.0 (>51); GLUCOSE, FASTING 95 MG/DL (70-100); POTASSIUM SERUM 2.9 MEQ/L (3.5-5.1); SODIUM LEVEL 140 MEQ/L (136-145); TOTAL PROTEIN 6.2 GM/DL (6.4-8.2)
[2019-03-11] MEDS ORDERED: POTASSIUM CHLORIDE 10 MEQ SR TABLET PO ONE (05:45)
[2019-03-11 05:51] LABS: MAGNESIUM LEVEL 1.8 MG/DL (1.8-2.4)
[2019-03-11] MEDS: KCL 10MEQ/100ML SWI (KRUN) 10 MEQ in IV 1 EA IV SCH ×4 (06:08→10:40)
[2019-03-11] MEDS ORDERED: MAG SULF 1GM/100ML (MAG RUN) 1 GM in IV 1 EA IV ONE (06:15)
[2019-03-11] MEDS: predniSONE 10 MG TAB PO SCH (07:55)
[2019-03-11] MEDS: THEOPHYLLINE (THEO-24) 100MG SR **CAPSULE PO SCH (07:55)
[2019-03-11] MEDS: TIOTROPIUM INHALER/CAPSULE (SPIRIVA) INH SCH (08:27)
[2019-03-11] MEDS: ADVAIR HFA 230/21MCG INHALER INH SCH ×2 (08:27→19:37)
[2019-03-11] MEDS: LR 1,000 ML IV SCH (15:05)
--- NOTE | 2019-03-11 15:37 | IPNPDOC ---
Date Seen The patient was seen on 03/11/19. Progress Note SUBJECTIVE: Navi was seen and examined this morning while lying upright in bed. Her abdominal pain, bloating, and discomfort that arose on Monday morning (03/10) has resolved. She reports asking for, and receiving, one administration of prn morphine overnight, but has not needed any today. She endorses some loose stool and mild discomfort with bowel movements of late. She appears mildly anxious today, specifically regarding uncertainty over upcoming possible treatments. She remains on telemetry. She continues to also be followed by general surgery. She endorses mild shortness of breath with ambulation but states that this is her "normal." She denies feeling feverish, chills, night sweats, vomiting, increased work of breathing, cough, or paresthesias. OBJECTIVE PHYSICAL EXAMINATION: VITAL SIGNS: Please see below. GENERAL: Navi is a pleasant and cooperative woman who appears her stated age. She appears to be resting comfortably in her bed, with no signs of acute respiratory or abdominal distress. She is speaking in full sentences, maintains good eye contact, and responds appropriately to questions and commands. She seems particularly concerned about having her theophylline held. HEENT: Normocephalic, atraumatic. . Pupils are equal, round, reactive to light and accommodation. Extraocular motion is intact. Trachea is midline. Neck is supple. CARDIOVASCULAR: tachycardic with regular rhythm. Normal S1, S2. No murmurs are appreciated. 2+ palpable radial and posterior tibial pulses bilaterally. RESPIRATORY: There are no wheezes or rhonchi appreciated on auscultation. There is symmetric chest expansion with respiration. There is no accessory muscle use during respiration. There are no retractions. Patient is breathing on room air. ABDOMINAL: Abdomen is soft with no tenderness to palpation or dullness to percussion in all abdominal quadrants. There are areas of abdominal bruising, likely result, the patient's heparin injections. Hyperactive bowel sounds are present. No rebound, guarding, or rigidity. There is no costovertebral angle tenderness. EXTREMITIES: Patient has 5 out of 5 muscle strength testing of upper extremities and lower extremities bilaterally.. There is mild swelling of bilateral lower extremities. There is no clubbing or cyanosis. NEUROLOGICAL:. Patient is awake, alert and oriented 3. She is responding appropriately to questions and commands. Sensation to light touch is intact upper extremities and lower extremities bilaterally. PSYCHOLOGICAL: Mildly anxious with appropriate affect. LABORATORY DATA, IMAGING STUDIES, MICROBIOLOGY: Please see below Abdominal/pelvis CT, 03/10: Perforated diverticulitis now shows diverticular abscess developed over the past 3 days measuring 3.5 x 3 x 3 cm adjacent to the mid left sigmoid just to the left of midline with an air-fluid level in it now. There is no free air in the abdomen. The free air in the pelvis is now coalescent into this abscess cavity. No free fluid or adenopathy. No other interval change. The abscess appears covered from various approaches with small bowel, colon, blood vessels and bone interposed between it and the skin surface. ASSESSMENT AND PLAN: #Acute sigmoid diverticulitis with contained perforation -Patient is not afebrile this morning and abdominal pain, bloating and tenderness that was present yesterday morning (03/10) has resolved. -Patient was scheduled for CT-guided sigmoid abscess drainage this morning (03/11) with interventional radiology. IR reported that patient's abscess could not effectively be drained and therefore the procedure was not undertaken. -Patient was switched over to antibiotic coverage in the form of meropenem y . Today brice Day #2 of meropenem administration. She had previously been on Cipro and Flagyl. -Hospitalist team communicated with general surgery today (03/11), who advised keeping patient on antibiotics and reassessing state of abscess via a CT abdomen and pelvis in 4-5 days. -Patient tolerated clear liquid diet well and has been advanced to mechanical soft diet. -Patient's LR fluid dosing was stopped. -Blood cultures obtained yesterday (03/10) showed no growth after 24 hours. -Patient taking morphine and Tylenol prn for pain #Chronic asthma -Patient is breathing on room air and does not appear to be in any acute respiratory distress. -Continue with patient's albuterol nebulizer prn, albuterol inhaler prn, Advair, and Spiriva respiratory treatments. -Patient follows with pulmonology as outpatient (Dr. Hudson) -Patient takes oral prednisone as outpatient. Therefore, to avoid adrenal suppression, patient remains on oral prednisone 10 mg daily. #Sinus tachycardia -Patient remains on telemetry and is tachycardic. Patient reports that her baseline heart rate is generally elevated. -Patient's theophylline was held today to potentially lower her heart rate. -Continue to monitor patient's vitals -Patient was also anxious today and tearful at times during exam. #Hypokalemia -Potassium was significantly decreased at 2.9. Patient has complained of recent loose stool, perhaps this is etiology of decreased K. Continue to evaluate as cause is relatively still unknown. -Patient was given both oral and IV potassium as well as a 1mg run of Mg. -Follow-up with afternoon magnesium and potassium level measurement reassessment DVT prophylaxis: Patient receiving 5000 units of subcutaneous heparin bid. DISPOSITION: Patient is progressing well and does not appear to be in any acute pain or discomfort. Patient was progressed to a medical soft diet and will remain PCU designation for now as we continue to monitor status and reassess in a few days with repeat abdominal pelvis CT. I saw and evaluated the patient. Discussed with the resident and agree with telma tucker's findings and plan as documented in the resident's note VS, I&O, 24H, Fishbone Vital Signs/I&O Vital Signs Date Time Temp Pulse Resp B/P (MAP) Pulse Ox O2 Delivery O2 Flow Rate FiO2 03/11/19 12:23 98.9 126 20 131/82 (98) 97 03/08/19 04:00 1.0 03/07/19 19:45 Room Air I&O- Last 24 Hours up to 6 AM 03/11/19 06:00 Intake Total 1810 ml Output Total 3250 ml Balance -1440 ml Laboratory Data 24H LABS Laboratory Tests 2 03/11/19 04:48: Immature Granulocyte % (Auto) 1.0, White Blood Count 13.4H, Red Blood Count 4.16, Hemoglobin 13.2, Hematocrit 39.1, Mean Corpuscular Volume 94.0, Mean Corpuscular Hemoglobin 31.7, Mean Corpuscular Hemoglobin Concent 33.8, Red Cell Distribution Width 12.9, Platelet Count 366, Neutrophils (%) (Auto) 66.8H, Lymphocytes (%) (Auto) 22.9L, Monocytes (%) (Auto) 7.3H, Eosinophils (%) (Auto) 1.6, Basophils (%) (Auto) 0.4, Neutrophils # (Auto) 8.9H, Lymphocytes # (Auto) 3.1, Monocytes # (Auto) 1.0H, Eosinophils # (Auto) 0.2, Basophils # (Auto) 0.1, Nucleated Red Blood Cells % (auto) 0.0, Anion Gap 9, Glomerular Filtration Rate > 60.0, Blood Urea Nitrogen 2L, Creatinine 0.89, Sodium Level 140, Potassium Level 2.9*L, Chloride Level 106, Carbon Dioxide Level 25, Calcium Level 8.4L, Aspartate Amino Transf (AST/SGOT) 15, Alanine Aminotransferase (ALT/SGPT) 17, Alkaline Phosphatase 77, Total Bilirubin 0.5, Total Protein 6.2L, Albumin 2.6L, Magnesium Level 1.8, Albumin/Globulin Ratio 0.72L CBC/BMP Laboratory Tests 03/11/19 04:48 Red Blood Count 4.16, Mean Corpuscular Volume 94.0, Mean Corpuscular Hemoglobin 31.7, Mean Corpuscular Hemoglobin Concent 33.8, Red Cell Distribution Width 12.9, Neutrophils (%) (Auto) 66.8 H, Lymphocytes (%) (Auto) 22.9 L, Monocytes (%) (Auto) 7.3 H, Eosinophils (%) (Auto) 1.6, Basophils (%) (Auto) 0.4, Neutrophils # (Auto) 8.9 H, Lymphocytes # (Auto) 3.1, Monocytes # (Auto) 1.0 H, Eosinophils # (Auto) 0.2, Basophils # (Auto) 0.1, Calcium Level 8.4 L, Aspartate Amino Transf (AST/SGOT) 15, Alanine Aminotransferase (ALT/SGPT) 17, Alkaline Phosphatase 77, Total Bilirubin 0.5, Total Protein 6.2 L, Albumin 2.6 L Microbiology Microbiology 03/10/19 Blood Culture - Preliminary, Resulted No growth after 24 hours . All specim... 03/07/19 Blood Culture - Preliminary, Resulted No Growth after 72 hours. All specime... 03/07/19 Blood Culture - Preliminary, Resulted No Growth after 72 hours. All specime... 03/07/19 Blood Culture - Preliminary, Resulted No Growth after 72 hours. All specime... GALDINO VALENTINO PGY-1 Mar 11, 2019 15:37 JAYLYN GAMA MD Mar 12, 2019 07:11
[2019-03-11] MEDS ORDERED: PERCOCET 5MG/325MG TAB PO ONE (17:00)
[2019-03-11] MEDS: POTASSIUM CHLORIDE 10 MEQ SR TABLET PO SCH (21:32)
[2019-03-11] MEDS: PERCOCET 5MG/325MG TAB PO PRN (23:23)
[2019-03-12] MEDS: MEROPENEM INJ 1 GM in IV 1 EA IV SCH ×3 (03:48→18:07)
[2019-03-12 04:00] VITALS: BP 138/77
[2019-03-12] MEDS: HEPARIN SOD (PORCINE) 5000 UNITS/ML VIAL SC SCH ×3 (05:10→21:03)
[2019-03-12] MEDS: PERCOCET 5MG/325MG TAB PO PRN ×3 (05:47→21:04)
[2019-03-12 07:39] LABS: HEMATOCRIT 36.1 % (36.0-47.0); HEMOGLOBIN 12.3 g/dl (12.0-15.5); MEAN CORPUSCULAR HEMOGLOBIN 31.7 pg (27.0-33.0); MEAN CORPUSCULAR HGB CONC 34.1 g/dl (32.0-36.5); PLATELET COUNT, AUTOMATED 380 10^3/uL (150-450); RED BLOOD COUNT 3.88 10^6/uL (4.00-5.40); WHITE BLOOD COUNT 14.5 10^3/uL (4.0-10.0)
[2019-03-12] MEDS: ADVAIR HFA 230/21MCG INHALER INH SCH ×2 (07:40→20:23)
[2019-03-12] MEDS: TIOTROPIUM INHALER/CAPSULE (SPIRIVA) INH SCH (07:40)
[2019-03-12 08:00] VITALS: BP 132/74
[2019-03-12 08:14] LABS: BLOOD UREA NITROGEN 4 MG/DL (7-18); CALCIUM LEVEL 8.3 MG/DL (8.5-10.1); CARBON DIOXIDE LEVEL 24 MEQ/L (21-32); CHLORIDE LEVEL 109 MEQ/L (98-107); CREATININE FOR GFR 0.94 MG/DL (0.55-1.30); GLOMERULAR FILTRATION RATE > 60.0 (>51); GLUCOSE, FASTING 95 MG/DL (70-100); POTASSIUM SERUM 3.7 MEQ/L (3.5-5.1); SODIUM LEVEL 140 MEQ/L (136-145)
[2019-03-12] MEDS: predniSONE 10 MG TAB PO SCH (08:50)
[2019-03-12] MEDS: POTASSIUM CHLORIDE 10 MEQ SR TABLET PO SCH ×2 (08:50→21:03)
[2019-03-12] MEDS ORDERED: PERCOCET 5MG/325MG TAB PO ONE (10:45)
[2019-03-12 12:00] VITALS: BP 143/79
[2019-03-12 16:00] VITALS: BP 141/87
[2019-03-12] MEDS ORDERED: SLF 3 ML SYR IV PRN (17:15)
[2019-03-12 20:00] VITALS: BP 155/91
--- NOTE | 2019-03-12 20:43 | IPNPDOC ---
Date Seen The patient was seen on 03/12/19. Progress Note SUBJECTIVE: Navi was seen and examined this morning lying upright in bed. She was transferred from her ICU bed to a PCU bed yesterday evening. Her last bowel movement was yesterday. She reports handling her mechanical soft diet well and tolerated his soup and tuna for dinner last night. She remains on telemetry. She says her abdominal pain is diffuse and not localized to one area, but was rela tively well-controlled overnight. She denies feeling feverish, chills, night sweats, shortness of breath, cough, chest pain, chest pressure, palpitations, feeling nauseated, vomiting, lower extremity edema, or her seizures at this time. OBJECTIVE PHYSICAL EXAMINATION: VITAL SIGNS: Please see below. GENERAL: Navi is a pleasant and cooperative woman who appears her stated age. She appears to be resting comfortably in her bed, with no signs of acute respiratory or abdominal distress. She is speaking in full sentences, maintains good eye contact, and responds appropriately to questions and commands.. She appears to be mildly anxious, but has been so for the past few days. HEENT: Normocephalic, atraumatic. Nonicteric sclera. Noninjected conjunctiva. Pupils are equal, round, reactive to light and accommodation. Extraocular motion is intact. Trachea is midline. Neck is supple. CARDIOVASCULAR: Tachycardic with regular rhythm. Normal S1, S2. No murmurs are appreciated. 2+ palpable radial and posterior tibial pulses bilaterally. RESPIRATORY: There are no wheezes or rhonchi appreciated on auscultation. There is symmetric chest expansion with respiration. There is no accessory muscle use during respiration. There are no retractions. Patient is breathing on room air. ABDOMINAL: Abdomen is soft with no tenderness to palpation or dullness to percussion in all abdominal quadrants. There are areas of abdominal bruising, likely the result result of heparin injections. Hyperactive bowel sounds are present. No rebound, guarding, or rigidity. There is no costovertebral angle tenderness. EXTREMITIES: Patient has 5 out of 5 muscle strength testing of upper extremities and lower extremities bilaterally. There is mild swelling of bilateral lower extremities. There is no clubbing or cyanosis. NEUROLOGICAL:. Patient is awake, alert and oriented 3. She is responding appropriately to questions and commands. Sensation to light touch is intact upper extremities and lower extremities bilaterally. PSYCHOLOGICAL: Mildly anxious with appropriate affect. LABORATORY DATA, IMAGING STUDIES, MICROBIOLOGY: Please see below. ASSESSMENT AND PLAN: #Acute sigmoid diverticulitis with contained perforation -Patient is afebrile this morning and abdominal pain remains diminished from where it was on Monday (03/10) when imaging revealed coalesced abscess. -Today brice Day #3 of meropenem administration. She had previously been on Cipro and Flagyl. -Hospitalist team communicated with general surgery yesterday, who advised keeping patient on antibiotics and reassessing state of abscess via a CT abdomen and pelvis in 4-5 days. -Patient is tolerating mechanical soft diet well -Patient's pain regimen switched today to Percocet prn every 4 hours #Chronic asthma -Patient is breathing on room air and does not appear to be in any acute respiratory distress. -Continue with patient's albuterol nebulizer prn, albuterol inhaler prn, Advair, and Spiriva respiratory treatments. -Patient's theophylline was held yesterday due to elevated heart rate. -Patient follows with pulmonology as outpatient (Dr. Hudson) -Patient takes oral prednisone as outpatient. Therefore, to avoid adrenal suppression, patient remains on oral prednisone 10 mg daily. #Sinus tachycardia -Patient remains on telemetry and is tachycardic. Patient reports that her baseline heart rate is generally elevated. -Patient's theophylline was held yesterday to potentially lower her heart rate. -Continue to monitor patient's vitals -Patient was also anxious today and tearful at times during exam.. She is asked if she would like to speak to a counselor or perhaps receive medication to help with the anxiety, but she states she is doing well enough and does not feel she needs these measures at the moment. #Hypokalemia -Normalized today after receiving supplementation yesterday. DVT prophylaxis: Patient receiving 5000 units of subcutaneous heparin bid. DISPOSITION: Patient is progressing well and does not appear to be in any acute pain or discomfort. Patient was progressed to a medical soft diet yesterday, which she is tolerating well. Her bed was switched to a PCU bed yesterday evening. We will continue to monitor her status and reassess on repeat CT imaging in a few days as to the state of her abscess. We will continue to collaborate with general surgery in the care of Ms. Hutton. I saw and evaluated the patient. I agree with the findings and plan of care as documented in the above note VS, I&O, 24H, Fishbone Vital Signs/I&O Vital Signs Date Time Temp Pulse Resp B/P (MAP) Pulse Ox O2 Delivery O2 Flow Rate FiO2 03/12/19 16:00 97.5 113 20 141/87 (105) 95 03/08/19 04:00 1.0 03/07/19 19:45 Room Air I&O- Last 24 Hours up to 6 AM 03/12/19 06:00 Intake Total 2595 ml Output Total 3050 ml Balance -455 ml Laboratory Data 24H LABS Laboratory Tests 2 03/12/19 07:23: Nucleated Red Blood Cells % (auto) 0.0, Anion Gap 7L, Glomerular Filtration Rate > 60.0, Blood Urea Nitrogen 4#L, Creatinine 0.94, Sodium Level 140, Potassium Level 3.7, Chloride Level 109H, Carbon Dioxide Level 24, Calcium Level 8.3L CBC/BMP Laboratory Tests 03/12/19 07:23 Red Blood Count 3.88 L, Mean Corpuscular Volume 93.0, Mean Corpuscular Hemoglobin 31.7, Mean Corpuscular Hemoglobin Concent 34.1, Red Cell Distribution Width 13.4, Calcium Level 8.3 L Microbiology Microbiology 03/10/19 Blood Culture - Preliminary, Resulted No Growth after 48 hours. All Specime... 03/07/19 Blood Culture - Final, Complete NO GROWTH AFTER 5 DAYS 03/07/19 Blood Culture - Final, Complete NO GROWTH AFTER 5 DAYS 03/07/19 Blood Culture - Final, Complete NO GROWTH AFTER 5 DAYS GALDINO VALENTINO PGY-1 Mar 12, 2019 20:43 MARITA HUERTA MD Mar 14, 2019 10:53
[2019-03-12] MEDS: SLF 3 ML SYR IV SCH (21:03)
[2019-03-12 23:59] VITALS: BP 132/77
[2019-03-13] MEDS: MEROPENEM INJ 1 GM in IV 1 EA IV SCH ×3 (03:48→19:15)
[2019-03-13] MEDS: PERCOCET 5MG/325MG TAB PO PRN ×4 (03:49→20:41)
[2019-03-13 04:00] VITALS: BP 136/88
[2019-03-13 05:22] LABS: HEMATOCRIT 37.5 % (36.0-47.0); HEMOGLOBIN 12.5 g/dl (12.0-15.5); MEAN CORPUSCULAR HEMOGLOBIN 32.1 pg (27.0-33.0); MEAN CORPUSCULAR HGB CONC 33.3 g/dl (32.0-36.5); MEAN CORPUSCULAR VOLUME 96.2 fl (80.0-96.0); PLATELET COUNT, AUTOMATED 397 10^3/uL (150-450); WHITE BLOOD COUNT 14.3 10^3/uL (4.0-10.0)
[2019-03-13 05:43] LABS: BLOOD UREA NITROGEN 6 MG/DL (7-18); CALCIUM LEVEL 8.4 MG/DL (8.5-10.1); CARBON DIOXIDE LEVEL 26 MEQ/L (21-32); CHLORIDE LEVEL 107 MEQ/L (98-107); CREATININE FOR GFR 0.82 MG/DL (0.55-1.30); GLOMERULAR FILTRATION RATE > 60.0 (>51); GLUCOSE, FASTING 84 MG/DL (70-100); POTASSIUM SERUM 3.9 MEQ/L (3.5-5.1); SODIUM LEVEL 138 MEQ/L (136-145)
[2019-03-13] MEDS: HEPARIN SOD (PORCINE) 5000 UNITS/ML VIAL SC SCH ×3 (06:24→20:40)
[2019-03-13] MEDS: SLF 3 ML SYR IV SCH ×3 (06:24→20:40)
[2019-03-13 08:00] VITALS: BP 153/83
[2019-03-13] MEDS: POTASSIUM CHLORIDE 10 MEQ SR TABLET PO SCH ×2 (08:53→20:40)
[2019-03-13] MEDS: predniSONE 10 MG TAB PO SCH (08:54)
[2019-03-13] MEDS: ADVAIR HFA 230/21MCG INHALER INH SCH ×2 (08:55→20:37)
[2019-03-13] MEDS: TIOTROPIUM INHALER/CAPSULE (SPIRIVA) INH SCH (08:55)
[2019-03-13 12:00] VITALS: BP 163/82
[2019-03-13 16:00] VITALS: BP 137/72
--- NOTE | 2019-03-13 16:47 | IPNPDOC ---
Date Seen The patient was seen on 03/13/19. Progress Note SUBJECTIVE: Navi was seen and examined this morning while lying upright in bed. At time of exam, she just received a Percocet for her pain. Her pain still consists of bilateral pelvic pain that can radiate to the inguinal region. The pain is described as constant and sharp at times rating a 4 or 5 on a scale of 1-10. Her appetite is "okay." She continues to have loose bowel movements. She is able to ambulate to and from the bathroom on her own power. Veins on telemetry. She was able to get some decent sleep overnight. She remains mildly anxious regarding her overall medical status and upcoming steps of care. She denies feeling feverish, chills, night sweats, chest pain, chest pressure, palpitations, shortness breath, cough, feeling nauseated, vomiting, generalized weakness, or paresthesias at this time. OBJECTIVE PHYSICAL EXAMINATION: VITAL SIGNS: Please see below. GENERAL: Navi is a pleasant and cooperative woman who appears her stated age.. She is resting comfortably in bed at the time of exam, with no signs of being in acute respiratory or abdominal distress. She is speaking in full sentences, maintains good eye contact, and responds appropriately to questions and command s. She remains mildly anxious, specifically regarding future steps in her inpatient care. HEENT: Normocephalic, atraumatic. Nonicteric sclera. Noninjected conjunctiva. Trachea midline. CARDIOVASCULAR: Tachycardic with regular rhythm. Normal S1, S2. No murmurs are appreciated. 2+ palpable radial and posterior tibial pulses bilaterally. RESPIRATORY: There are no wheezes or rhonchi appreciated on auscultation. There is symmetric chest expansion with respiration. There is no accessory muscle use during respiration. There are no retractions. Patient is breathing on room air. ABDOMINAL: Abdomen is soft with mild tenderness to palpation in inferior segments of lower abdominal quadrants bilaterally. There is no tympany to percussion. There remain areas of abdominal bruising, likely the result result of heparin injections. Normoactive bowel sounds present. No rebound, guarding, or rigidity. There is no costovertebral angle tenderness. EXTREMITIES: Patient has 5 out of 5 muscle strength testing of upper extremities and lower extremities bilaterally. There is mild swelling of bilateral lower ex tremities. There is no clubbing or cyanosis. NEUROLOGICAL:. Patient is awake, alert and oriented 3. She is responding appropriately to questions and commands. Sensation to light touch is intact upper extremities and lower extremities bilaterally. PSYCHOLOGICAL: Mildly anxious with appropriate affect. LABORATORY DATA, IMAGING STUDIES, MICROBIOLOGY: Please see below. ASSESSMENT AND PLAN: This is a 53-year-old female who presented to the [facility] emergency department on 03/07 on recommendation from her primary care provider after she was seen earlier that day for right lower quadrant abdominal pain of 2 days duration and imaging showed acute diverticulitis of the sigmoid colon with conta ined perforation. She was admitted, made npo, placed on Cipro and Flagyl, and evaluated by surgery. She had 2 days of improvement in her abdominal pain symptoms, but became tachycardic with a high white count on 03/10. Her abdominal pain returned on 03/10 to the intensity and distribution it was on ED presentation. Imaging on 03/10 showed an abscess of coalesced air over the sigmoid diverticulum. Antibiotics were switched to meropenem on 03/10. Patient's pain improved. On 03/11 and has been unchanged since. Repeat imaging is scheduled for the morning of 03/14. #Sigmoid diverticular abscess -Patient is afebrile this morning. Abdominal pain remains present at intensity of previous 2 days, but diminished from where it was on Monday (03/10) when imaging revealed coalesced abscess. -Today brice Day #4 of meropenem administration. She had previously been on Cipro and Flagyl. Patient continues to have an elevated white count, but value today is slightly decreased from yesterday. -Hospitalist team communicated with general surgery on 03/11, who advised keeping patient on antibiotics and reassessing state of abscess via a CT abdomen and pelvis in 4-5 days. -Repeat CT abdomen/pelvis has been scheduled for tomorrow morning (03/14) to compare with studies from 03/10 and assess state of patient's diverticular abscess. -Patient is tolerating mechanical soft diet well -Patient's pain regimen switched on 03/12 to Percocet prn every 4 hours #Chronic asthma -Patient is breathing on room air and does not appear to be in any acute respiratory distress. -Continue with patient's albuterol nebulizer prn, albuterol inhaler prn, Advair, and Spiriva respiratory treatments. -Patient's theophylline was held yesterday due to elevated heart rate. -Patient follows with pulmonology as outpatient (Dr. Hudson) -Patient takes oral prednisone as outpatient. Therefore, to avoid adrenal suppression, patient remains on oral prednisone 10 mg daily. #Sinus tachycardia -Patient remains on telemetry and is tachycardic today. Patient reports that her baseline heart rate is generally elevated. -Patient's theophylline was held on 03/11 to potentially lower her heart rate. -Continue to monitor patient's vitals -Patient was also anxious today and tearful at times during exam. She is asked if she would like to speak to a counselor or perhaps receive medication to help with the anxiety, but she states she is doing well enough and does not feel she needs these measures at the moment. #Leukocytosis -White count remains elevated. Since 03/10, but value today is slightly decreased from yesterday's. -This is likely secondary to patient's diverticular abscess that was found on imaging and 03/10. Patient had fever and severe abdominal pain on 03/10, but she has remained afebrile since 03/11 and her abdominal pain has diminished from where it was on 03/10. DVT prophylaxis: Patient receiving 5000 units of subcutaneous heparin bid. DISPOSITION: Patient is progressing well and does not appear to be in any acute pain or discomfort. Patient was progressed to a medical soft diet, which she is tolerating well.. She remains on telemetry and in PCU. We will continue to monitor her status and reassess on repeat CT imaging tomorrow morning (03/14) to assess the state of patient's diverticular abscess. We will continue to collaborate with general surgery in the care of Ms. Hutton. I saw and evaluated the patient. I agree with the findings and plan of care as documented in the above note VS, I&O, 24H, Fishbone Vital Signs/I&O Vital Signs Date Time Temp Pulse Resp B/P (MAP) Pulse Ox O2 Delivery O2 Flow Rate FiO2 03/13/19 15:33 97.3 108 20 163/82 94 03/08/19 04:00 1.0 03/07/19 19:45 Room Air I&O- Last 24 Hours up to 6 AM 03/13/19 06:00 Intake Total 1960 ml Output Total 1900 ml Balance 60 ml Laboratory Data 24H LABS Laboratory Tests 2 03/13/19 04:43: Nucleated Red Blood Cells % (auto) 0.0, Anion Gap 5L, Glomerular Filtration Rate > 60.0, Blood Urea Nitrogen 6L, Creatinine 0.82, Sodium Level 138, Potassium L evel 3.9, Chloride Level 107, Carbon Dioxide Level 26, Calcium Level 8.4L CBC/BMP Laboratory Tests 03/13/19 04:43 Red Blood Count 3.90 L, Mean Corpuscular Volume 96.2 H, Mean Corpuscular Hemoglobin 32.1, Mean Corpuscular Hemoglobin Concent 33.3, Red Cell Distribution Width 13.3, Calcium Level 8.4 L Microbiology Microbiology 03/10/19 Blood Culture - Preliminary, Resulted No Growth after 72 hours. All specime... 03/07/19 Blood Culture - Final, Complete NO GROWTH AFTER 5 DAYS 03/07/19 Blood Culture - Final, Complete NO GROWTH AFTER 5 DAYS 03/07/19 Blood Culture - Final, Complete NO GROWTH AFTER 5 DAYS GALDINO VALENTINO PGY-1 Mar 13, 2019 16:47 MARITA HUERTA MD Mar 14, 2019 10:56
[2019-03-13 20:00] VITALS: BP 140/80
--- NOTE | 2019-03-13 20:11 | IPN ---
DATE: 03/13/2019 HISTORY The patient was admitted on the 07 of March with abdominal pain and CT evidence for a contained perforation of a sigmoid diverticulum. She had a CT scan on the 10 of March that showed development of a small abscess in the mesentery of the sigmoid colon which was not amendable to percutaneous drainage. She is being continued on meropenem for antibiotic coverage. Vital signs: Show that the patient has been afebrile over the past 24 hours. Her pulse has ranged from 97-116. Blood pressure is acceptable. Intake and output show that she has been taking an excellent amount of oral intake. Her urine output is good and she reports bowel movements that are loose. PHYSICAL EXAMINATION The patient is up walking in the room when I came to her room. She is alert and oriented. She appears comfortable. The abdomen is soft and without any significant tenderness. Laboratory studies show that her white count is 14,000 with a hemoglobin of 12, hematocrit of 38 and a platelet count of 397,000. Chemistry profile shows normal electrolytes with BUN of 6, creatinine 0.8 in a glucose of 84. IMPRESSION The patient appears clinically stable. She is afebrile and her white count remained stable. She reports no significant tenderness at this time although she did have some discomfort across her lower abdomen earlier today. PLAN The patient reports that she may be scheduled for a repeat CT scan today, though this would be at the order of the hospitalist. If a CT is done, then I will review it when it becomes available. Otherwise I would recommend continuing the antibiotics. PRABHAKAR
[2019-03-13 23:59] VITALS: BP 133/80
[2019-03-14 04:00] VITALS: BP 138/82
[2019-03-14] MEDS: MEROPENEM INJ 1 GM in IV 1 EA IV SCH ×3 (04:06→18:15)
[2019-03-14] MEDS: SLF 3 ML SYR IV SCH ×3 (04:06→21:32)
[2019-03-14] MEDS: PERCOCET 5MG/325MG TAB PO PRN ×4 (04:12→21:33)
[2019-03-14] MEDS: HEPARIN SOD (PORCINE) 5000 UNITS/ML VIAL SC SCH ×2 (05:01→14:04)
[2019-03-14 05:04] LABS: HEMOGLOBIN 12.9 g/dl (12.0-15.5); MEAN CORPUSCULAR HEMOGLOBIN 31.9 pg (27.0-33.0); MEAN CORPUSCULAR HGB CONC 33.1 g/dl (32.0-36.5); MEAN CORPUSCULAR VOLUME 96.3 fl (80.0-96.0); PLATELET COUNT, AUTOMATED 427 10^3/uL (150-450); RED BLOOD COUNT 4.05 10^6/uL (4.00-5.40); WHITE BLOOD COUNT 12.4 10^3/uL (4.0-10.0)
[2019-03-14 05:25] LABS: BLOOD UREA NITROGEN 9 MG/DL (7-18); CARBON DIOXIDE LEVEL 27 MEQ/L (21-32); CHLORIDE LEVEL 105 MEQ/L (98-107); CREATININE FOR GFR 0.88 MG/DL (0.55-1.30); GLOMERULAR FILTRATION RATE > 60.0 (>51); GLUCOSE, FASTING 78 MG/DL (70-100); POTASSIUM SERUM 4.4 MEQ/L (3.5-5.1); SODIUM LEVEL 139 MEQ/L (136-145)
[2019-03-14] MEDS: GASTROGRAFIN SOLUTION 30ML PO SCH ×2 (06:45→07:10)
[2019-03-14 08:00] VITALS: BP_SYST 137; BP_DIAS 70; BP_DIAS 72
[2019-03-14] MEDS ORDERED: ISOVUE-370 76% 100ML VIAL (Q9967) As Ordered ONE (08:07)
[2019-03-14] MEDS: TIOTROPIUM INHALER/CAPSULE (SPIRIVA) INH SCH (08:19)
[2019-03-14] MEDS: ADVAIR HFA 230/21MCG INHALER INH SCH ×2 (08:19→20:18)
[2019-03-14] MEDS: predniSONE 10 MG TAB PO SCH (08:27)
[2019-03-14] MEDS: POTASSIUM CHLORIDE 10 MEQ SR TABLET PO SCH ×2 (08:28→21:32)
--- NOTE | 2019-03-14 08:51 | REP ---
CT abdomen and pelvis with IV and oral contrast: History: Reassess diverticular abscess. Comparison CT study March 07 and March 10, 2019. CT contrast dose: 100 ml of intravenous Isovue [address] findings: Preliminary digital oil scout radiograph is unremarkable. There is linear plate-like atelectasis in the right lower lobe parallel to the major fissure. This is improved. The liver and spleen are normal in size homogeneous in texture except for a small left lobe hepatic cyst unchanged. 14 mm. Gallbladder and pancreas are unremarkable. No adrenal or renal lesion is seen. There is no evidence of large or small bowel obstruction. There is mural thickening and pericolonic fat streaking persisting in the sigmoid colon with extensive sigmoid colonic diverticulosis. Changes are consistent with diverticulitis. A March 10, 2019 study showed a 3.0 x 3.5 cm air and fluid containing abscess cavity superior to the involved loop of sigmoid colon in the left lower quadrant. On today's exam this is again seen measuring 4.3 x 3.3 cm. It has enlarged slightly. It is craniocaudal diameter has increased from 3.1-3.7 cm. There is a partially defined enhancing margin. There are 1 or 2 bubbles of adjacent gas along its medial wall. No free intraperitoneal air is appreciated elsewhere in the abdomen. No other fluid collection is seen. No uterine or ovarian abnormality is appreciated. Urinary bladder is intact. No abdominal wall defect. Impression: Sigmoid colon diverticulitis with an associated 4.3 cm diverticular abscess. This is somewhat increased in size from March 10, 2019. Electronically Signed by Nehemias Dominguez MD 03/14/2019 09:29 A
[2019-03-14 12:00] VITALS: BP 147/88
--- NOTE | 2019-03-14 15:45 | IPN ---
DATE: 03/14/2019 HISTORY: The patient was admitted with a contained perforation of the sigmoid diverticulum with some air in the sigmoid mesentery. This on a recent CT scan appeared to have coalesced into a small abscess. She had a repeat CT scan this morning for followup. She reports no significant pain today. Vital signs show that she has been afebrile over the past 24 hours. Her pulse is in the 90s to low 100s and her blood pressure is excellent. Intake and output shows that yesterday she had 1500 in with 2000 of urine output recorded. Her weight is remaining stable. PHYSICAL EXAMINATION: The patient is alert and oriented. She ambulates without difficulty. Examination of the abdomen shows the abdomen to be mildly protuberant. She has bowel sounds present. The abdomen is soft and nontender without appreciable mass. Laboratory studies show a white count of 12, hemoglobin 13, hematocrit of 39 and platelet count of 427,000. Chemistry profile shows a sodium of 139, potassium 4.4, chloride 105, CO2 of 27, BUN of 9, creatinine 0.9 and glucose of 78. IMAGING STUDIES: The patient had a CT scan of the abdomen and pelvis today. This was interpreted as showing a 4.3 x 3.3 cm abscess in the mesentery of the sigmoid colon. This is slightly enlarged from her study on March 10. IMPRESSION: The patient has an abscess that was not amendable to percutaneous drainage which over the last 4 days has increased very slightly in size. Yesterday she was having some lower abdominal discomfort earlier in the day but she is better today. The abdomen is benign, though her white count remains slightly elevated. PLAN: I discussed with the patient that our options are either continue antibiotics over a longer period of time to see if she responds or proceed with operative drainage of this abscess. I think there is more obvious downside risk of waiting and continuing just with antibiotic therapy than there would be to an active intervention to drain this abscess. I have recommended that we proceed with laparoscopy with placement of a drain to eliminate this abscess so that the antibiotics would be effective. This will be scheduled for tomorrow March 15 and I would anticipate that she could be discharged within 1-2 days after surgery. She is agreeable with plan. PRABHAKAR
--- NOTE | 2019-03-14 15:57 | IPNPDOC ---
Date Seen The patient was seen on 03/14/19. Progress Note SUBJECTIVE: Navi was seen and examined this morning while sitting upright in a bedside chair. She reports her left lower abdominal and inguinal pain from yesterday has improved. She rates it as a 3 out of 10 today. She did well overnight and slept fairly well. She did take a Percocet at 4 AM and then another around 8:30 AM. She had a CT of the abdomen and pelvis this morning to compare with this study from 03/10. She reports her bowel movements have been more formed than they were on previous days. She has no pain with bowel movements. She is eating and drinking without any issues. She denies fever, chills, night sweats, chest pain, chest pressure, palpitations, shortness of breath, cough, feeling nauseated, vomiting, or paresthesias at this time. OBJECTIVE PHYSICAL EXAMINATION: VITAL SIGNS: Please see below. GENERAL: Patient is pleasant and cooperative. She appears stated age. She is seated in a chair and appears comfortable at time of exam.. She does not appear to be in any acute respiratory or abdominal distress. She is speaking in full sentences, maintains good eye contact, and responds appropriately to questions and commands. She appears less anxious today compared to previous days. HEENT: Normocephalic, atraumatic. Nonicteric sclera. Noninjected conjunctiva. Trachea midline. CARDIOVASCULAR: Tachycardic with regular rhythm. Normal S1, S2. No murmurs are appreciated. 2+ palpable radial and posterior tibial pulses bilaterally. RESPIRATORY: There are no wheezes or rhonchi appreciated on auscultation. There is symmetric chest expansion with respiration. There is no accessory muscle use during respiration. There are no retractions. Patient is breathing on room air. ABDOMINAL: Abdomen is soft with mild tenderness to palpation of the lower abdominal quadrants bilaterally that appears less discomforting than it was on yesterday's exam. There is no tympany to percussion. There remain areas of abdominal bruising, likely the result result of heparin injections. Normoactive bowel sounds present. No rebound, guarding, or rigidity. There is no costovertebral angle tenderness. EXTREMITIES: Patient has 5 out of 5 muscle strength testing of upper extremities and lower extremities bilaterally. There is mild swelling of bilateral lower extremities. There is no clubbing or cyanosis. NEUROLOGICAL:. Patient is awake, alert and oriented 3. She is responding appropriately to questions and commands. Sensation to light touch is intact upper extremities and lower extremities bilaterally. PSYCHOLOGICAL: Appropriate mood, appropriate affect. LABORATORY DATA, IMAGING STUDIES, MICROBIOLOGY: Please see below. CT abdomen and pelvis, 03/14- Sigmoid colon diverticulitis with an associated 4.3 cm diverticular abscess. This is somewhat increased in size from March 10, 2019 ASSESSMENT AND PLAN: This is a 53-year-old female who presented to the [facility] emergency d epartment on 03/07 on recommendation from her primary care provider after she was seen earlier that day for right lower quadrant abdominal pain of 2 days duration and imaging showed acute diverticulitis of the sigmoid colon with contained perforation. She was admitted, made npo, placed on Cipro and Flagyl, and evaluated by surgery. She had 2 days of improvement in her abdominal pain symptoms, but became tachycardic with a high white count on 03/10. Her abdominal pain returned on 03/10 to the intensity and distribution it was on ED presentation. Imaging on 03/10 showed an abscess of coalesced air over the sigmoid diverticulum. Antibiotics were switched to meropenem on 03/10. Patient's pain improved on 03/11 and has been relatively unchanged since. Repeat imaging on 03/14 showed a slight increase in the size of patient's abscess (from 3 x 3.5 cm to 4.3-3.3 cm). General surgery has decided to take patient to surgery tomorrow to address diverticular sigmoid abscess. Patient was switched to a clear liquid diet this afternoon and will be npo after midnight in preparation for tomorrow's surgery. #Sigmoid diverticular abscess -Patient is afebrile this morning. Her lower abdominal and inguinal pain is improved from where it had been the previous 2 days. -CT of the abdomen and pelvis this morning showed a slightly enlarged abscess with no other free air. Hospitalist team spoke with general surgery about the results and general surgery has decided to take the patient to surgery tomorrow (03/15). -Patient was switched to a clear liquid diet and will be made npo after midnight in preparation of surgery tomorrow. -Today is Day #5 of meropenem administration. She had previously been on Cipro a nd Flagyl. Patient continues to have an elevated white count, but value has decreased the last two days. #Chronic asthma -Patient is breathing on room air and does not appear to be in any acute respi ratory distress. -Continue with patient's albuterol nebulizer prn, albuterol inhaler prn, Advair, and Spiriva respiratory treatments. -Patient's theophylline is being held due to elevated heart rate. -Patient follows with pulmonology as outpatient (Dr. Hudson) -Patient takes oral prednisone as outpatient. Therefore, to avoid adrenal suppression, patient remains on oral prednisone 10 mg daily. #Sinus tachycardia -Patient has not been tachycardic today. Her rates have been in the low 90s. -Patient's theophylline was held on 03/11 to potentially lower her heart rate. -Continue with telemetry #Leukocytosis -White count remains elevated since 03/10, but value has decreased over the past 2 days. -This is elevation likely secondary to patient's diverticular abscess that was found on imaging and 03/10. Patient had fever and severe abdominal pain on 03/10, but she has remained afebrile since 03/11 and her abdominal pain has diminished from where it was on 03/10. DVT prophylaxis: Patient receiving 5000 units of subcutaneous heparin bid. DISPOSITION: Hospitalist team spoke with general surgery late this morning regarding results of today's CT abdomen and pelvis. General surgery decided to take patient to surgery tomorrow to address diverticular abscess of sigmoid colon. Hospitalist team will continue to oversee patient's general medical care and collaborate with general surgery as to her status and next steps of care after surgery tomorrow. I saw and evaluated the patient. I agree with the findings and plan of care as documented in the above note VS, I&O, 24H, Satyabone Vital Signs/I&O Vital Signs Date Time Temp Pulse Resp B/P (MAP) Pulse Ox O2 Delivery O2 Flow Rate FiO2 03/14/19 14:00 18 03/14/19 12:00 97.0 90 147/88 (107) 92 03/08/19 04:00 1.0 I&O- Last 24 Hours up to 6 AM 03/14/19 06:00 Intake Total 1418 ml Output Total 2100 ml Balance -682 ml Laboratory Data 24H LABS Laboratory Tests 2 03/14/19 04:26: Nucleated Red Blood Cells % (auto) 0.0, Anion Gap 7L, Glomerular Filtration Rate > 60.0, Blood Urea Nitrogen 9, Creatinine 0.88, Sodium Level 139, Potassium Level 4.4, Chloride Level 105, Carbon Dioxide Level 27, Calcium Level 9.0 CBC/BMP Laboratory Tests 03/14/19 04:26 Red Blood Count 4.05, Mean Corpuscular Volume 96.3 H, Mean Corpuscular Hemoglobin 31.9, Mean Corpuscular Hemoglobin Concent 33.1, Red Cell Distribution Width 13.4, Calcium Level 9.0 Microbiology Microbiology 03/10/19 Blood Culture - Preliminary, Resulted No Growth after 72 hours. All specime... 03/07/19 Blood Culture - Final, Complete NO GROWTH AFTER 5 DAYS 03/07/19 Blood Culture - Final, Complete NO GROWTH AFTER 5 DAYS 03/07/19 Blood Culture - Final, Complete NO GROWTH AFTER 5 DAYS GALDINO VALENTINO PGY-1 Mar 14, 2019 15:57 MARITA HUERTA MD Mar 17, 2019 11:31
[2019-03-14 16:00] VITALS: BP 129/80
[2019-03-14] MEDS: MIRALAX *UNIT DOSE* 17GM PACKET PO SCH ×3 (17:03→18:15)
[2019-03-14 19:00] VITALS: BP 143/80
[2019-03-15] VITALS (7 sets, daily range): BP systolic 122–146; BP diastolic 74–84
[2019-03-15] MEDS: SLF 3 ML SYR IV SCH ×3 (03:49→20:31)
[2019-03-15] MEDS: MEROPENEM INJ 1 GM in IV 1 EA IV SCH ×3 (03:49→18:21)
[2019-03-15 05:39] LABS: BASO # 0.1 10^3/uL (0.0-0.2); BASO % 1.2 % (0.0-1.0); EOS # 0.3 10^3/uL (0.0-0.5); EOS % 2.1 % (0.0-3.0); HEMOGLOBIN 13.9 g/dl (12.0-15.5); LYMPH # 2.7 10^3/uL (1.5-5.0); LYMPH % 23.4 % (24.0-44.0); MEAN CORPUSCULAR HEMOGLOBIN 31.8 pg (27.0-33.0); MEAN CORPUSCULAR HGB CONC 33.1 g/dl (32.0-36.5); MEAN CORPUSCULAR VOLUME 96.1 fl (80.0-96.0); MONO # 1.1 10^3/uL (0.0-0.8); MONO % 9.1 % (0.0-5.0); NEUTROPHILS # 7.1 10^3/uL (1.5-8.5); NEUTROPHILS % 60.8 % (36.0-66.0); PLATELET COUNT, AUTOMATED 503 10^3/uL (150-450); RED BLOOD COUNT 4.37 10^6/uL (4.00-5.40); WHITE BLOOD COUNT 11.7 10^3/uL (4.0-10.0)
[2019-03-15 06:10] LABS: ALBUMIN 2.8 GM/DL (3.2-5.2); ALT/SGPT 26 U/L (12-78); BILIRUBIN,TOTAL 0.2 MG/DL (0.2-1.0); BLOOD UREA NITROGEN 9 MG/DL (7-18); CALCIUM LEVEL 9.2 MG/DL (8.5-10.1); CARBON DIOXIDE LEVEL 26 MEQ/L (21-32); CHLORIDE LEVEL 104 MEQ/L (98-107); GLOMERULAR FILTRATION RATE > 60.0 (>51); GLUCOSE, FASTING 78 MG/DL (70-100); POTASSIUM SERUM 4.2 MEQ/L (3.5-5.1); SODIUM LEVEL 138 MEQ/L (136-145); TOTAL PROTEIN 7.3 GM/DL (6.4-8.2)
[2019-03-15] MEDS: TIOTROPIUM INHALER/CAPSULE (SPIRIVA) INH SCH (07:11)
[2019-03-15] MEDS: ADVAIR HFA 230/21MCG INHALER INH SCH ×2 (07:11→20:52)
[2019-03-15] MEDS ORDERED: ROCURONIUM BROMIDE 50 MG/5 ML VIAL As Ordered ONE (08:51)
[2019-03-15] MEDS ORDERED: PROPOFOL 200 MG/20 ML VIAL As Ordered ONE (08:51)
[2019-03-15] MEDS ORDERED: LIDOCAINE 2% INJ 100 MG/5 ML SDV (FOR ANES.) As Ordered ONE (08:51)
[2019-03-15] MEDS ORDERED: KETOROLAC 60 MG/2 ML VIAL (J1885) As Ordered ONE (08:52)
[2019-03-15] MEDS ORDERED: dexameTHASONE 4 MG/ML 1ML VIAL (J1100) As Ordered ONE (08:52)
[2019-03-15] MEDS ORDERED: ONDANSETRON 4MG/2ML VIAL (J2405) As Ordered ONE (08:52)
[2019-03-15] MEDS: POTASSIUM CHLORIDE 10 MEQ SR TABLET PO SCH ×2 (09:00→20:00)
[2019-03-15] MEDS ORDERED: MIDAZOLAM INJ 2 MG/2 ML VIAL (J2250) As Ordered ONE (09:25)
[2019-03-15] MEDS ORDERED: fentaNYL 250 MCG/5 ML INJECTION (J3010) As Ordered ONE (09:26)
[2019-03-15] MEDS ORDERED: BUPIVACAINE HCL 0.25% 30 ML VIAL As Ordered ONE (09:44)
[2019-03-15] MEDS ORDERED: BUPIVACAINE/EPIN 0.5% 30 ML VIAL As Ordered ONE (09:45)
[2019-03-15] MEDS ORDERED: BUPIVACAINE/EPIN 0.25% 30 ML VIAL As Ordered ONE (09:45)
[2019-03-15] MEDS ORDERED: SUCCINYLCHOLINE 100 MG/5 ML SYRINGE (J0330) As Ordered ONE (10:43)
[2019-03-15] MEDS ORDERED: MEROPENEM 1GM IN NACL 0.9% 50ML IVBAG (J2185 PER 100MG) As Ordered ONE (11:29)
[2019-03-15] MEDS ORDERED: SUGAMMADEX SODIUM 500 MG/5 ML VIAL (BRIDION) As Ordered ONE (11:56)
[2019-03-15] MEDS ORDERED: PHENYLephrine HCL 500 MCG/5 ML (100MCG/ML) SYRINGE (J2370) As Ordered ONE (12:07)
[2019-03-15] MEDS ORDERED: fentaNYL 100 MCG/2 ML INJECTION (J3010) As Ordered ONE (13:07)
[2019-03-15] MEDS: fentaNYL 100 MCG/2 ML INJECTION (J3010) IV PRN ×4 (13:10→13:25)
[2019-03-15] MEDS ORDERED: LR 1,000 ML IV SCH (13:30)
[2019-03-15] MEDS ORDERED: PERCOCET 5MG/325MG TAB PO PRN (13:30)
[2019-03-15] MEDS ORDERED: ONDANSETRON 4MG/2ML VIAL (J2405) IV PRN (13:30)
[2019-03-15] MEDS: HYDROMORPHONE HCL 0.5 MG/ 0.5 ML SYRINGE (J1170 PER 1) IV PRN ×4 (13:35→14:05)
[2019-03-15] MEDS ORDERED: HYDROMORPHONE HCL 0.5 MG/ 0.5 ML SYRINGE (J1170 PER 1) As Ordered ONE (14:12)
[2019-03-15] MEDS: predniSONE 10 MG TAB PO SCH (16:33)
[2019-03-15] MEDS: PERCOCET 5MG/325MG TAB PO PRN (16:33)
--- NOTE | 2019-03-15 19:12 | IPNPDOC ---
Date Seen The patient was seen on 03/15/19. Progress Note SUBJECTIVE: Navi was seen and examined this morning and a bedside chair. She was soon to go off for surgery to address her sigmoid diverticular abscess. She reports her lower abdominal and pelvic/inguinal pain remains where it's been the past couple days, 3-out-of-10 and significantly improved from 03/10. She has been npo since midnight in anticipation of this morning's surgery. She reports her bowel movements in the past 24 hours have been more formed than previous days. She expresses some anxiety regarding her surgery today, but is encouraged by the prospect of addressing the abscess. She denies fever, chills, chest pain, chest pressure, palpitations, shortness of breath, cough, feeling nauseated, or vomiting at this time. OBJECTIVE PHYSICAL EXAMINATION: VITAL SIGNS: Please see below. GENERAL: Patient is pleasant and cooperative. She appears stated age. She is seated in a chair and appears comfortable at time of exam. She does not appear to be in any acute respiratory or abdominal distress. She is speaking in full sentences, maintains good eye contact, and responds appropriately to questions and commands. She is mildly anxious today in anticipation of surgery. HEENT: Normocephalic, atraumatic. Nonicteric sclera. Noninjected conjunctiva. Trachea midline. CARDIOVASCULAR: Tachycardic with regular rhythm. Normal S1, S2. No murmurs are appreciated. 2+ palpable radial and posterior tibial pulses bilaterally. RESPIRATORY: There are no wheezes or rhonchi appreciated on auscultation. There is symmetric chest expansion with respiration. There is no accessory muscle use during respiration. There are no retractions. Patient is breathing on room air. ABDOMINAL: Abdomen is soft with mild tenderness to palpation of the lower abdominal quadrants bilaterally. There is no tympany to percussion. There remain areas of abdominal bruising, likely the result result of heparin injections. Normoactive bowel sounds present. No rebound, guarding, or rigidity. There is no costovertebral angle tenderness. EXTREMITIES: Patient has 5 out of 5 muscle strength testing of upper extremities and lower extremities bilaterally. There is mild swelling of bilateral lower extremities. There is no clubbing or cyanosis. NEUROLOGICAL:. Patient is awake, alert and oriented 3. She is responding a ppropriately to questions and commands. Sensation to light touch is intact upper extremities and lower extremities bilaterally. PSYCHOLOGICAL: Mildly anxious, appropriate affect. LABORATORY DATA, IMAGING STUDIES, MICROBIOLOGY: Please see below. ASSESSMENT AND PLAN: This is a 53-year-old female who presented to the [facility] emergency department on 03/07 on recommendation from her primary care provider after she was seen earlier that day for right lower quadrant abdominal pain of 2 days dur ation and imaging showed acute diverticulitis of the sigmoid colon with contained perforation. She was admitted, made npo, placed on Cipro and Flagyl, and evaluated by surgery. She had 2 days of improvement in her abdominal pain symptoms, but became tachycardic with a high white count on 03/10. Her abdominal pain returned on 03/10 to the intensity and distribution it was on ED presentation. Imaging on 03/10 showed an abscess of coalesced air over the sigmoid diverticulum. Antibiotics were switched to meropenem on 03/10. Patient's pain improved on 03/11 and has been relatively unchanged since. Repeat imaging on 03/14 showed a slight increase in the size of patient's abscess (from 3 x 3.5 cm to 4.3-3.3 cm). General surgery has decided to take patient to surgery tomorrow to address diverticular sigmoid abscess. Patient was switched to a clear liquid diet this afternoon and will be npo after midnight in preparation for tomorrow's surgery. #Sigmoid diverticular abscess -Patient is scheduled for surgery today to address sigmoid diverticular abscess. She has been npo since midnight in anticipation of the procedure. -Patient is afebrile this morning. Her lower abdominal and inguinal pain is imp roved from where it had been early in the week. -CT of the abdomen and pelvis yesterday showed a slightly enlarged abscess compared to 03/10 study, with no other free air. Hospitalist team spoke with g eneral surgery about the results and general surgery decided to proceed with surgery today. -Today is Day #6 of meropenem administration. She had previously been on Cipro and Flagyl. Patient continues to have an elevated white count, but value has decreased the last three days. #Chronic asthma -Patient is breathing on room air and does not appear to be in any acute respiratory distress. -Continue with patient's albuterol nebulizer prn, albuterol inhaler prn, Advair, and Spiriva respiratory treatments. -Patient's theophylline is being held due to elevated heart rate. -Patient follows with pulmonology as outpatient (Dr. Hudson) -Patient takes oral prednisone as outpatient. Therefore, to avoid adrenal suppression, patient remains on oral prednisone 10 mg daily. #Sinus tachycardia -Patient was mildly tachycardic this morning. -Patient's theophylline was held on 03/11 to potentially lower her heart rate. -Continue with telemetry #Leukocytosis -White count remains elevated since 03/10, but value has decreased over the past three days. -This elevation is likely secondary to patient's diverticular abscess that was found on imaging and 03/10. Patient had fever and severe abdominal pain on 03/10, but she has remained afebrile since 03/11 and her abdominal pain has diminished from where it was on 03/10. DVT prophylaxis: Patient receiving 5000 units of subcutaneous heparin bid. DISPOSITION: Patient was scheduled for surgery today to address sigmoid diverticular abscess. We'll reassess the patient after surgery and continue to collaborate with general surgery as to the next steps in patient's care. I saw and evaluated the patient. I agree with the findings and plan of care as documented in the above note VS, I&O, 24H, Fishbone Vital Signs/I&O Vital Signs Date Time Temp Pulse Resp B/P (MAP) Pulse Ox O2 Delivery O2 Flow Rate FiO2 03/15/19 18:16 97.8 104 18 122/75 (91) 93 2.0 I&O- Last 24 Hours up to 6 AM 03/15/19 06:00 Intake Total 1738 ml Output Total 3175 ml Balance -1437 ml Laboratory Data 24H LABS Laboratory Tests 2 03/15/19 04:52: Immature Granulocyte % (Auto) 3.4H, White Blood Count 11.7H, Red Blood Count 4.37, Hemoglobin 13.9, Hematocrit 42.0, Mean Corpuscular Volume 96.1H, Mean Corpuscular Hemoglobin 31.8, Mean Corpuscular Hemoglobin Concent 33.1, Red Cell Distribution Width 13.6, Platelet Count 503H, Neutrophils (%) (Auto) 60.8, Lymphocytes (%) (Auto) 23.4L, Monocytes (%) (Auto) 9.1H, Eosinophils (%) (Auto) 2.1, Basophils (%) (Auto) 1.2H, Neutrophils # (Auto) 7.1, Lymphocytes # (Auto) 2.7, Monocytes # (Auto) 1.1H, Eosinophils # (Auto) 0.3, Basophils # (Auto) 0.1, Nucleated Red Blood Cells % (auto) 0.0, Anion Gap 8, Glomerular Filtration Rate > 60.0, Blood Urea Nitrogen 9, Creatinine 0.90, Sodium Level 138, Potassium Level 4.2, Chloride Level 104, Carbon Dioxide Level 26, Calcium Level 9.2, Aspa rtate Amino Transf (AST/SGOT) 25, Alanine Aminotransferase (ALT/SGPT) 26, Alkaline Phosphatase 100, Total Bilirubin 0.2, Total Protein 7.3, Albumin 2.8L, Albumin/Globulin Ratio 0.62L CBC/BMP Laboratory Tests 03/15/19 04:52 Red Blood Count 4.37, Mean Corpuscular Volume 96.1 H, Mean Corpuscular Hemoglobin 31.8, Mean Corpuscular Hemoglobin Concent 33.1, Red Cell Distribution Width 13.6, Neutrophils (%) (Auto) 60.8, Lymphocytes (%) (Auto) 23.4 L, Monocytes (%) (Auto) 9.1 H, Eosinophils (%) (Auto) 2.1, Basophils (%) (Auto) 1.2 H, Neutrophils # (Auto) 7.1, Lymphocytes # (Auto) 2.7, Monocytes # (Auto) 1.1 H, Eosinophils # (Auto) 0.3, Basophils # (Auto) 0.1, Calcium Level 9.2, Aspartate Amino Transf (AST/SGOT) 25, Alanine Aminotransferase (ALT/SGPT) 26, Alkaline Phosphatase 100, Total Bilirubin 0.2, Total Protein 7.3, Albumin 2.8 L Microbiology Microbiology 03/15/19 Gram Stain - Final, Resulted 03/15/19 Wound Culture, Resulted Pending 03/15/19 Anaerobic Culture, Resulted Pending 03/10/19 Blood Culture - Final, Complete NO GROWTH AFTER 5 DAYS 03/07/19 Blood Culture - Final, Complete NO GROWTH AFTER 5 DAYS 03/07/19 Blood Culture - Final, Complete NO GROWTH AFTER 5 DAYS 03/07/19 Blood Culture - Final, Complete NO GROWTH AFTER 5 DAYS GALDINO VALENTINO PGY-1 Mar 15, 2019 19:11 MARITA HUERTA MD Mar 17, 2019 11:42
[2019-03-15] MEDS: ENOXAPARIN 40 MG/0.4 ML SYRINGE (J1650) SC SCH (20:30)
[2019-03-16] MEDS: PERCOCET 5MG/325MG TAB PO PRN ×4 (00:01→18:54)
[2019-03-16] MEDS: MEROPENEM INJ 1 GM in IV 1 EA IV SCH ×3 (03:05→18:11)
[2019-03-16 04:00] VITALS: BP 116/72
[2019-03-16] MEDS: SLF 3 ML SYR IV SCH ×3 (05:28→22:01)
[2019-03-16 05:57] LABS: BASO # 0.1 10^3/uL (0.0-0.2); BASO % 0.4 % (0.0-1.0); EOS % 0.1 % (0.0-3.0); HEMATOCRIT 40.7 % (36.0-47.0); HEMOGLOBIN 13.5 g/dl (12.0-15.5); LYMPH # 2.3 10^3/uL (1.5-5.0); LYMPH % 13.5 % (24.0-44.0); MEAN CORPUSCULAR HGB CONC 33.2 g/dl (32.0-36.5); MEAN CORPUSCULAR VOLUME 96.4 fl (80.0-96.0); MONO # 0.8 10^3/uL (0.0-0.8); MONO % 4.9 % (0.0-5.0); NEUTROPHILS # 13.6 10^3/uL (1.5-8.5); NEUTROPHILS % 79.3 % (36.0-66.0); PLATELET COUNT, AUTOMATED 498 10^3/uL (150-450); RED BLOOD COUNT 4.22 10^6/uL (4.00-5.40); WHITE BLOOD COUNT 17.1 10^3/uL (4.0-10.0)
[2019-03-16 06:17] LABS: BLOOD UREA NITROGEN 10 MG/DL (7-18); CALCIUM LEVEL 8.6 MG/DL (8.5-10.1); CARBON DIOXIDE LEVEL 29 MEQ/L (21-32); CHLORIDE LEVEL 102 MEQ/L (98-107); CREATININE FOR GFR 0.83 MG/DL (0.55-1.30); GLOMERULAR FILTRATION RATE > 60.0 (>51); GLUCOSE, FASTING 93 MG/DL (70-100); POTASSIUM SERUM 4.2 MEQ/L (3.5-5.1); SODIUM LEVEL 137 MEQ/L (136-145)
[2019-03-16] MEDS: ADVAIR HFA 230/21MCG INHALER INH SCH ×2 (07:40→19:56)
[2019-03-16] MEDS: TIOTROPIUM INHALER/CAPSULE (SPIRIVA) INH SCH (07:40)
[2019-03-16 08:00] VITALS: BP 136/78
[2019-03-16] MEDS: predniSONE 10 MG TAB PO SCH (08:35)
[2019-03-16] MEDS: POTASSIUM CHLORIDE 10 MEQ SR TABLET PO SCH ×2 (08:35→22:00)
[2019-03-16 12:20] VITALS: BP 144/100
[2019-03-16 14:00] VITALS: BP 130/62
--- NOTE | 2019-03-16 17:14 | IPN ---
DATE: 03/16/2019 HISTORY: Patient is postoperative day #1 from laparoscopy with drainage of her sigmoid mesentery abscess. Material was obtained for cultures with the Gram stain showing a few gram-positive cocci and a few gram-positive rods. She has generally done well since the surgery and is tolerating clear liquids well. Vital signs show that she has remained afebrile since the surgery. Her pulse is in the 90s to low 100s. Her blood pressure is good. Intake and output shows that she had 1650 in yesterday with 2350 out. She had 55 mL recorded out from her drain yesterday. Her urine output today has been excellent so far. PHYSICAL EXAMINATION: The patient was sitting up in a wheelchair when I came to see her. She is being transferred by the hospitalist up to the medical-surgical floor. She is alert and oriented. She denies any significant pain currently. The abdomen is soft and without undue tenderness considering her recent surgery. Her drain has a small amount of bloody fluid within the bulb and tubing. Laboratory studies show that her white count was up at 17,000 this morning with a hemoglobin of 14, hematocrit of 41, and a platelet count of 498,000. Differential count showed 93% neutrophils, 14% lymphocytes, and 5% monocytes. Chemistry profile showed normal electrolytes, BUN, creatinine, and glucose. IMPRESSION: The patient is doing very well postoperative day #1 from her laparoscopic drainage of her sigmoid colon abscess. Her drain has a small amount of bloody fluid, and she has cultures pending. RECOMMENDATIONS: At this point, I would recommend advancing her diet as tolerated. I would recommend continuing her on her current antibiotics. Repeat complete blood count (CBC) with differential tomorrow would be reasonable to followup on her white count elevation. When her cultures are complete, converting her to oral antibiotics would be reasonable. Her drain I will remove when appropriate. PRABHAKAR
[2019-03-16 18:00] VITALS: BP 132/66
--- NOTE | 2019-03-16 18:04 | IPNPDOC ---
Date Seen The patient was seen on 03/16/19. Progress Note SUBJECTIVE: Navi was seen and examined this morning while lying upright in bed. She is on postop day #1 from a laparoscopic drain of her sigmoid diverticular abscess. She states that overall she is feeling fairly well. She has very mild lower abdominal discomfort but not pain. She is ambulating to and from the bathroom to urinate. She has not had a bowel movement since surgery. She is on a clear liquid diet at the moment and is tolerating it well. She had been on 2 L nasal cannula. After surgery overnight but is now breathing room air. There is a left lower abdominal drain with a small amount of bloody fluid collected. She denies fever, chills, chest pain, chest pressure, palpitations, shortness breath, cough, abdominal pain, nausea, or vomiting at this time. OBJECTIVE PHYSICAL EXAMINATION: VITAL SIGNS: Please see below. GENERAL: Navi is pleasant and cooperative. She is lying upright in bed at time of exam.. She does not appear to be in any acute respiratory or abdominal distress. She is speaking in full sentences, maintains good eye contact, and responds appropriately to questions and commands. HEENT: Normocephalic, atraumatic. Nonicteric sclera. Noninjected conjunctiva. Tr achea midline. CARDIOVASCULAR: Tachycardic with regular rhythm. Normal S1, S2. No murmurs are appreciated. 2+ palpable radial and posterior tibial pulses bilaterally. RESPIRATORY: There are no wheezes or rhonchi appreciated on auscultation. There is symmetric chest expansion with respiration. There is no accessory muscle use during respiration. There are no retractions. Patient is breathing on room air. ABDOMINAL: Abdomen is soft with very mild discomfort to palpation of lower abdominal quadrants. There is a draining catheter present in October from left lower quadrant with a small amount of bloody fluid within the bulb and tubing. There are multiple bandages overlying abdomen. There is no tympany to percussion. Normoactive bowel sounds present. No rebound, guarding, or rigidity. Is no costovertebral angle tenderness. EXTREMITIES: Patient has 5 out of 5 muscle strength testing of upper extremities and lower extremities bilaterally. There is mild swelling of bilateral lower extremities. There is no clubbing or cyanosis. NEUROLOGICAL:. Patient is awake, alert and oriented 3. She is responding appropriately to questions and commands. PSYCHOLOGICAL: Appropriate mood, appropriate affect LABORATORY DATA, IMAGING STUDIES, MICROBIOLOGY: Please see below. Initial Gram stain from cultures taken on howed a few gram-positive rods and gram-positive cocci. Wound and anaerobic cultures obtained from surgery are still pending. ASSESSMENT AND PLAN: This is a 53-year-old female who presented to the [facility] emergency department on 03/07 on recommendation from her primary care provider after she was seen earlier that day for right lower quadrant abdominal pain of 2 days dura tion and imaging showed acute diverticulitis of the sigmoid colon with contained perforation. She was admitted, made npo, placed on Cipro and Flagyl, and evaluated by surgery. She had 2 days of improvement in her abdominal pain symptoms, but became tachycardic with a high white count on 03/10. Her abdominal pain returned on 03/10 to the intensity and distribution it was on ED presentation. Imaging on 03/10 showed an abscess of coalesced air over the sigmoid diverticulum. Antibiotics were switched to meropenem on 03/10. Patient's pain improved on 03/11 and has been relatively unchanged since. Repeat imaging on 03/14 showed a slight increase in the size of patient's abscess (from 3 x 3.5 cm to 4.3-3.3 cm). General surgery performed a laparoscopic drain of patient's sigmoid diverticular abscess on 03/15. Overall, patient tolerated surgery well and a left abdominal draining catheter and tube were placed. Patient was initially on clear liquid diet post-surgery, which she tolerated well. Diet was advanced on 03/16. Wound and anaerobic cultures were taken during surgery and results are pending. Initial Gram stain from cultures showed a few gram-positive rods and cocci. #Sigmoid diverticular abscess -Patient had laparoscopic surgery to drain sigmoid diverticular abscess on 03/15. A left sided abdominal draining catheter and tube were placed. -Patient is afebrile this morning and reports no significant pain on postop day #1 -Today is Day #7 of meropenem administration. She had previously been on Cipro and Flagyl. -Patient's white count was more elevated this morning compared to yesterday, if this is likely secondary to patient's surgery yesterday. -Initial Gram stain from cultures obtained from surgery yesterday showed few gram-positive cocci and rods. Wound cultures and anaerobic cultures are still pending. #Chronic asthma -Patient is breathing on room air and does not appear to be in any acute respiratory distress. -Continue with patient's albuterol nebulizer prn, albuterol inhaler prn, Advair, and Spiriva respiratory treatments. -Patient's theophylline is being held due to elevated heart rate. -Patient follows with pulmonology as outpatient (Dr. Hudson) -Patient takes oral prednisone as outpatient. Therefore, to avoid adrenal suppression, patient remains on oral prednisone 10 mg daily. #Sinus tachycardia -Patient's heart rate was in the 90s to low 100s this morning. -Patient's theophylline was held on 03/11 to potentially lower her heart rate. -Patient is off telemetry. #Leukocytosis -Patient's CBC increased today -This elevation is likely secondary to yesterday's laparoscopic surgery to drain diverticular abscess. -Patient continues to remain afebrile. DVT prophylaxis: Patient receiving 40 mg daily Lovenox sc DISPOSITION: Patient was switched to medical/surgical floor from progressive care unit on 03/16, post-op day #1. Patient has advanced to regular diet area. Wound and anaerobic cultures from surgery are pending. Until results return from cultures, continue with IV meropenem. Draining catheter and tube will removed by general surgery at later time. Hospitals team will continue to collaborate with general surgery as to the next steps in patient's care. I saw and evaluated the patient. I agree with the findings and plan of care as documented in the above note VS, I&O, 24H, Fishbone Vital Signs/I&O Vital Signs Date Time Temp Pulse Resp B/P (MAP) Pulse Ox O2 Delivery O2 Flow Rate FiO2 03/16/19 14:51 18 03/16/19 14:00 98.6 118 130/62 (84) 97 03/16/19 04:00 2.0 I&O- Last 24 Hours up to 6 AM 03/16/19 06:00 Intake Total 1800 ml Output Total 2675 ml Balance -875 ml Laboratory Data 24H LABS Laboratory Tests 2 03/16/19 05:17: Immature Granulocyte % (Auto) 1.8, White Blood Count 17.1H, Red Blood Count 4.22, Hemoglobin 13.5, Hematocrit 40.7, Mean Corpuscular Volume 96.4H, Mean Corpuscular Hemoglobin 32.0, Mean Corpuscular Hemoglobin Concent 33.2, Red Cell Distribution Width 13.4, Platelet Count 498H, Neutrophils (%) (Auto) 79.3H, Lymphocytes (%) (Auto) 13.5L, Monocytes (%) (Auto) 4.9, Eosinophils (%) (Auto) 0.1, Basophils (%) (Auto) 0.4, Neutrophils # (Auto) 13.6H, Lymphocytes # (Auto) 2.3, Monocytes # (Auto) 0.8, Eosinophils # (Auto) 0.0, Basophils # (Auto) 0.1, Nucleated Red Blood Cells % (auto) 0.0, Anion Gap 6L, Glomerular Filtration Rate > 60.0, Blood Urea Nitrogen 10, Creatinine 0.83, Sodium Level 137, Potassium Level 4.2, Chloride Level 102, Carbon Dioxide Level 29, Calcium Level 8.6 CBC/BMP Laboratory Tests 03/16/19 05:17 Red Blood Count 4.22, Mean Corpuscular Volume 96.4 H, Mean Corpuscular Hemoglobin 32.0, Mean Corpuscular Hemoglobin Concent 33.2, Red Cell Distribution Width 13.4, Neutrophils (%) (Auto) 79.3 H, Lymphocytes (%) (Auto) 13.5 L, Monocytes (%) (Auto) 4.9, Eosinophils (%) (Auto) 0.1, Basophils (%) (Auto) 0.4, Neutrophils # (Auto) 13.6 H, Lymphocytes # (Auto) 2.3, Monocytes # (Auto) 0.8, Eosinophils # (Auto) 0.0, Basophils # (Auto) 0.1, Calcium Level 8.6 Microbiology Microbiology 03/15/19 Gram Stain - Final, Resulted 03/15/19 Wound Culture, Resulted Pending 03/15/19 Anaerobic Culture, Resulted Pending 03/10/19 Blood Culture - Final, Complete NO GROWTH AFTER 5 DAYS 03/07/19 Blood Culture - Final, Complete NO GROWTH AFTER 5 DAYS 03/07/19 Blood Culture - Final, Complete NO GROWTH AFTER 5 DAYS 03/07/19 Blood Culture - Final, Complete NO GROWTH AFTER 5 DAYS GALDINO VALENTINO PGY-1 Mar 16, 2019 18:03 MARITA HUERTA MD Mar 17, 2019 11:59
[2019-03-16 22:00] VITALS: BP 130/70
[2019-03-16] MEDS: ENOXAPARIN 40 MG/0.4 ML SYRINGE (J1650) SC SCH (22:01)
[2019-03-17] MEDS: MEROPENEM INJ 1 GM in IV 1 EA IV SCH ×3 (03:19→18:09)
[2019-03-17] MEDS: PERCOCET 5MG/325MG TAB PO PRN ×5 (03:19→22:32)
[2019-03-17] MEDS: SLF 3 ML SYR IV SCH ×3 (05:01→22:32)
[2019-03-17 06:00] VITALS: BP 140/88
[2019-03-17] MEDS: TIOTROPIUM INHALER/CAPSULE (SPIRIVA) INH SCH (07:34)
[2019-03-17] MEDS: ADVAIR HFA 230/21MCG INHALER INH SCH ×2 (07:34→19:55)
[2019-03-17] MEDS: predniSONE 10 MG TAB PO SCH (07:43)
[2019-03-17] MEDS: POTASSIUM CHLORIDE 10 MEQ SR TABLET PO SCH ×2 (07:43→20:10)
[2019-03-17 08:05] LABS: HEMATOCRIT 39.6 % (36.0-47.0); HEMOGLOBIN 12.9 g/dl (12.0-15.5); MEAN CORPUSCULAR HEMOGLOBIN 31.6 pg (27.0-33.0); MEAN CORPUSCULAR HGB CONC 32.6 g/dl (32.0-36.5); MEAN CORPUSCULAR VOLUME 97.1 fl (80.0-96.0); PLATELET COUNT, AUTOMATED 486 10^3/uL (150-450); RED BLOOD COUNT 4.08 10^6/uL (4.00-5.40); WHITE BLOOD COUNT 10.2 10^3/uL (4.0-10.0)
[2019-03-17 08:33] LABS: BLOOD UREA NITROGEN 10 MG/DL (7-18); CALCIUM LEVEL 8.8 MG/DL (8.5-10.1); CARBON DIOXIDE LEVEL 26 MEQ/L (21-32); CHLORIDE LEVEL 105 MEQ/L (98-107); CREATININE FOR GFR 0.78 MG/DL (0.55-1.30); GLOMERULAR FILTRATION RATE > 60.0 (>51); GLUCOSE, FASTING 79 MG/DL (70-100); POTASSIUM SERUM 4.1 MEQ/L (3.5-5.1); SODIUM LEVEL 138 MEQ/L (136-145)
[2019-03-17 10:00] VITALS: BP 140/84
--- NOTE | 2019-03-17 10:33 | IPNPDOC ---
Date Seen The patient was seen on 03/17/19. Progress Note SUBJECTIVE: Patient reports feeling quite well today. She tells me she had some pain overnight oximetry medication for this which alleviated it. She tells me that she tolerated her diet she is passing gas and other than noting some little pressure when ambulating she is doing well. She denies fevers chills chest pain shortness of breath palpitations nausea or vomiting. OBJECTIVE PHYSICAL EXAMINATION: VITAL SIGNS: Please see below. GENERAL: pleasant and cooperative. She is lying upright in bed at time of exam. She does not appear to be in any acu distress. HEENT: Normocephalic, atraumatic. Nonicteric sclera. Noninjected conjunctiva. Trachea midline. CARDIOVASCULAR: Normal S1, S2. No murmurs are appreciated. 2+ palpable radial and posterior tibial pulses bilaterally. RESPIRATORY: There are no wheezes or rhonchi appreciated on auscultation. ABDOMINAL: Abdomen is soft with very mild discomfort to palpation of lower abdominal quadrants. There is a draining catheter present with a small amount of serosanguineous fluid w. There are multiple bandages overlying abdomen which are clean dry and intact. EXTREMITIES: Patient has 5 out of 5 muscle strength testing of upper extremities and lower extremities bilaterally. NEUROLOGICAL:. Patient is awake, alert and oriented 3. She is responding appropriately to questions and commands. Exam is nonfocal PSYCHOLOGICAL: Appropriate mood, appropriate affect LABORATORY DATA, IMAGING STUDIES, MICROBIOLOGY: Please see below. ASSESSMENT AND PLAN: This is a 53-year-old female with perforated diverticulitis complicated by abscess formation. Postop day 1 for laparoscopic drainage. #1. Sigmoid diverticular abscess: Status post I and D by general surgery laparoscopically surgery help is greatly appreciated the patient is certainly significantly better further intervention. She tolerated her procedure well and doing well postoperatively. I suspect or drink potentially be discontinued within the near future. We'll follow-up her abscess culture and transition to by mouth antibiotics disposition when cleared for general surgery perspective. Doing well at this time. Continue with pain control #2. Chronic asthma: Stable she is at her baseline respiratory status, Continue with patient's albuterol nebulizer prn, albuterol inhaler prn, Advair, and Spiriva respiratory treatments. Patient's theophylline is being held due to elevated heart rate. Patient follows with pulmonology as outpatient (Dr. Hudson). Patient on chronic prednisone therapy. #3. Sinus tachycardia: Appears improved today was likely secondary to infection. I's and theophylline could also been determining factors as well. No further interventions required at this time. #4. Leukocytosis: Likely radioactive secondary to her surgical intervention the day before. Appears to be downtrending today continue to monitor she is been on appropriate antibiotics throughout her hospitalization. DVT prophylaxis: Patient receiving 40 mg daily Lovenox sc DISPOSITION: Pending drain removal culture data surgical clearance. VS, I&O, [facility] Vital Signs/I&O Vital Signs Date Time Temp Pulse Resp B/P (MAP) Pulse Ox O2 Delivery O2 Flow Rate FiO2 03/17/19 10:00 97.5 85 19 140/84 (102) 95 03/16/19 04:00 2.0 I&O- Last 24 Hours up to 6 AM 03/17/19 06:00 Intake Total 2520 ml Output Total 1729 ml Balance 791 ml Laboratory Data 24H LABS Laboratory Tests 2 03/17/19 07:39: Nucleated Red Blood Cells % (auto) 0.0, Anion Gap 7L, Glomerular Filtration Rate > 60.0, Blood Urea Nitrogen 10, Creatinine 0.78, Sodium Level 138, Potassium Level 4.1, Chloride Level 105, Carbon Dioxide Level 26, Calcium Level 8.8 CBC/BMP Laboratory Tests 03/17/19 07:39 Red Blood Count 4.08, Mean Corpuscular Volume 97.1 H, Mean Corpuscular Hemoglobin 31.6, Mean Corpuscular Hemoglobin Concent 32.6, Red Cell Distribution Width 13.5, Calcium Level 8.8 Microbiology Microbiology 03/15/19 Gram Stain - Final, Resulted 03/15/19 Wound Culture, Resulted Pending 03/15/19 Anaerobic Culture, Resulted Pending 03/10/19 Blood Culture - Final, Complete NO GROWTH AFTER 5 DAYS 03/07/19 Blood Culture - Final, Complete NO GROWTH AFTER 5 DAYS 03/07/19 Blood Culture - Final, Complete NO GROWTH AFTER 5 DAYS 03/07/19 Blood Culture - Final, Complete NO GROWTH AFTER 5 DAYS MARITA HUERTA MD Mar 17, 2019 10:33
[2019-03-17 14:00] VITALS: BP 138/80
--- NOTE | 2019-03-17 15:42 | IPN ---
DATE: 03/17/2019 HISTORY: Patient is now postoperative day #2 from laparoscopy with drainage of her sigmoid colon mesenteric abscess. She has been doing well over the past 24 hours and is taking a regular diet without difficulty. She has diminished pain. Vital signs show that she has been afebrile over the past 24 hours. Her pulse is in the 80s to one-teens. Her blood pressure is good. Intake and output show that yesterday she had 2500 in with 2200 out. She had 20 mL recorded from her drain. She had 19 mL recorded from her drain this morning. PHYSICAL EXAMINATION: Patient is sitting upright in a chair and looks pretty comfortable. She is alert and oriented. Heart exam shows a regular rhythm. The lungs are clear. The abdomen is soft. Her drain has a small amount of primarily serous fluid in the bulb. Laboratory studies show a white count of 10, hemoglobin of 13, hematocrit of 40 and a platelet count of 486,000. Chemistry profile is normal. Cultures from her abscess are still pending. IMPRESSION: The patient is doing very well now two days postoperatively from drainage of her abscess. Her white count has returned nearly to normal. She is feeling well and eating well. RECOMMENDATIONS: I spoke with Dr. Alcazar about my thoughts. I believe this patient should be ready for discharge tomorrow. If we have her culture results, then we can base her antibiotic treatment on that and if results are either negative or still pending, then I recommended just continuing her on her Cipro and Flagyl that had been started prior to her admission. I will make plans to see her in the office later this week to consider removing her drain.
[2019-03-17 18:00] VITALS: BP 134/78
[2019-03-17 22:00] VITALS: BP 130/85
[2019-03-17] MEDS: ENOXAPARIN 40 MG/0.4 ML SYRINGE (J1650) SC SCH (22:32)
[2019-03-18] MEDS ORDERED: MORPHINE 4 MG/ML 1ML VIAL/SYRINGE (J2270) IV PRN (00:15)
[2019-03-18 02:00] VITALS: BP 132/87
[2019-03-18] MEDS ORDERED: IBUPROFEN 600 MG TAB PO ONE (02:15)
[2019-03-18] MEDS: MEROPENEM INJ 1 GM in IV 1 EA IV SCH ×2 (02:55→11:27)
[2019-03-18 06:00] VITALS: BP 120/80
[2019-03-18] MEDS: SLF 3 ML SYR IV SCH ×2 (06:32→14:26)
[2019-03-18 06:35] LABS: HEMATOCRIT 40.6 % (36.0-47.0); HEMOGLOBIN 13.4 g/dl (12.0-15.5); MEAN CORPUSCULAR HEMOGLOBIN 31.8 pg (27.0-33.0); MEAN CORPUSCULAR VOLUME 96.4 fl (80.0-96.0); PLATELET COUNT, AUTOMATED 480 10^3/uL (150-450); RED BLOOD COUNT 4.21 10^6/uL (4.00-5.40); WHITE BLOOD COUNT 16.1 10^3/uL (4.0-10.0)
[2019-03-18 07:09] LABS: BLOOD UREA NITROGEN 17 MG/DL (7-18); CALCIUM LEVEL 8.6 MG/DL (8.5-10.1); CARBON DIOXIDE LEVEL 24 MEQ/L (21-32); CHLORIDE LEVEL 102 MEQ/L (98-107); CREATININE FOR GFR 0.87 MG/DL (0.55-1.30); GLOMERULAR FILTRATION RATE > 60.0 (>51); GLUCOSE, FASTING 95 MG/DL (70-100); POTASSIUM SERUM 4.3 MEQ/L (3.5-5.1); SODIUM LEVEL 133 MEQ/L (136-145)
[2019-03-18] MEDS: TIOTROPIUM INHALER/CAPSULE (SPIRIVA) INH SCH (07:33)
[2019-03-18] MEDS: ADVAIR HFA 230/21MCG INHALER INH SCH (07:34)
[2019-03-18] MEDS: POTASSIUM CHLORIDE 10 MEQ SR TABLET PO SCH (08:17)
[2019-03-18] MEDS: predniSONE 10 MG TAB PO SCH (08:17)
[2019-03-18] MEDS: ACETAMINOPHEN TAB 650MG DOSE (2X325MG) PO PRN (08:18)
[2019-03-18] MEDS ORDERED: PERCOCET PO ×3 (08:54→09:50)
--- NOTE | 2019-03-18 09:16 | RO ---
DATE OF PROCEDURE: 03/15/2019 PREOPERATIVE DIAGNOSIS: Mesenteric abscess of the sigmoid colon. POSTOPERATIVE DIAGNOSIS: Mesenteric abscess of the sigmoid colon. Peritoneal adhesions. PROCEDURE PERFORMED: Laparoscopy with lysis of adhesions and drainage of abscess of the sigmoid mesentery. SURGEON: Dr. Luis Bob PLAY THERAPIST: ANESTHESIA: General. INDICATIONS FOR PROCEDURE: The patient is a 53-year-old woman who had presented with some lower abdominal pain and was found to have evidence for a contained perforation of a sigmoid diverticulum with some air in the sigmoid mesentery. She was continued on antibiotics and had a persistent slight elevation of her white blood cell count. A repeat CT scan showed an abscess in the sigmoid mesentery which was not amendable to percutaneous drainage. Followup scan several days later showed that the abscess was slightly larger despite continued antibiotics and was still not amendable to a percutaneous drainage. She is now for laparoscopy and drainage of her abscess. OPERATIVE PROCEDURE: The patient was brought to the operating room and placed on the table in a supine position. She was placed under general endotracheal anesthesia. She was moved into a low lithotomy position with the lower extremities in padded leg holders. Thromboembolic deterrent stockings (TEDS) and sequentials were utilized. A Martinez catheter was inserted. The patient's abdomen was prepped and draped in a sterile fashion. Initial entry into the abdomen was in the right upper quadrant, perhaps 5 cm above the level of the umbilicus. 0.25% Marcaine was infiltrated at the trocar sites. A short incision was made and a Veress needle was inserted. After a positive hanging drop test, the abdomen was inflated with carbon dioxide gas. A 5 mm Visiport was placed over the 5 mm scope and advanced through the abdominal wall without difficulty. Initial examination showed some adhesions of the omentum to the anterior abdominal wall with one area in the epigastrium and another smaller area in the left lower quadrant. The patient was tilted to a fairly steep Trendelenburg position. A second 5 mm trocar was placed in the right lower quadrant and a third 5 mm trocar was placed in the left upper quadrant. Prior to placing this third trocar, the adhesions in the left lower quadrant were divided and lysed using cauterizing scissors. I also elected to take down the adhesions in the epigastrium. With the small bowel now mobilized out of the pelvis, the sigmoid colon was readily apparent. There was some hemorrhagic change on the peritoneum on the medial aspect of the mid sigmoid mesentery. I began to mobilize the lateral attachments of the sigmoid colon to allow approach to the abscess from a lateral aspect. As these adhesions were divided, I entered a small area where obvious pus began to drain from a hole along the lateral aspect of the sigmoid colon. A suction cadence specialists was used to aspirate some of this fluid which was collected in a trap for culture. Further aspiration was undertaken to try to empty the abscess as much as possible. I elected to make an incision on the medial aspect of the sigmoid mesentery to try to create a [id number] opening through which a drain could be placed. The abscess was entered from the medial aspect and there was no further significant drainage of purulence. I was able to insert an endoscopic grasper into the opening lateral to the colon and visualized this through the opening on the medial aspect of the mesentery. I was confident that this was the abscess that required drainage. A 19-Guyanese Martin drain was inserted into the abdomen through the right lower quadrant drain port site. This was directed out through a small stab wound in the low left lower quadrant. The drain was inserted into the opening lateral to the sigmoid colon and brought out through the hole in the mesentery medially. The distal end of the redundant drain was cut off and removed. The pelvis and left paracolic gutter were irrigated. There was no evident bleeding. The patient was returned to a flat position. The abdomen was deflated and the trocars were removed. The drain was sutured to the skin with a #2-0 silk and covered with a chlorhexidine gluconate OpSite and connected to a Aidan-Springer bulb. The incisions were closed with buried sutures of Vicryl and Steri-Strips and light dressings were applied. The patient tolerated the procedure well without apparent complication. She was awakened in the operating room, extubated and moved to the recovery room in stable condition. Her Martinez catheter was removed prior to awakening.
[2019-03-18 10:00] VITALS: BP 120/87
[2019-03-18] MEDS ORDERED: BACT400T PO (10:24)
--- NOTE | 2019-03-18 10:26 | DS.PDOC ---
Discharge Summary General Date of Admission Mar 07, 2019 at 17:03 Date of Discharge 03/18/19 Specialist/Consultants Involve: Luis Bob Discharge Summary PROCEDURES PERFORMED DURING STAY: Patient had a laparoscopy with drainage of sigmoid colon mesenteric abscess with percutaneous drain placement ADMITTING DIAGNOSES: Acute complicated diverticulitis with contained perforation Asthma Tachycardia Sepsis DISCHARGE DIAGNOSES: Sigmoid diverticular abscess Chronic asthma Sinus tachycardia COMPLICATIONS/CHIEF COMPLAINT: Rlq Abdominal Pain. HISTORY OF PRESENT ILLNESS: Patient is a 51-year-old female with a known history of asthma, inguinal hernia repair, diverticulitis, history of C. difficile who presented to the emergency department on 03/07/19 complaining of lower abdominal pain, decreased appetite as well as diarrhea. She stated that she has also had fevers and chills intermittently. Patient was seen by primary care provider, who started the patient on oral Cipro and Flagyl, recommended a CT scan that demonstrated the patient was having fairly extensive sigmoid diverticulitis with a contained perforation and no abscess collection. Patient did not have any free air in the abdomen. Patient was subsequently sent to the emergency department. Patient denies any chest pain, blood in the stool nausea or vomiting. HOSPITAL COURSE: Patient was admitted to the hospital and kept nothing by mouth pending surgical evaluation. She was admitted, made npo, placed on Cipro and Flagyl, and evaluated by surgery. She had 2 days of improvement in her abdominal pain symptoms, but became tachycardic with a high white count on 03/10. Her abdominal pain returned on 03/10 to the intensity and distribution it was on ED presentat ion. Imaging on 03/10 showed an abscess of coalesced air over the sigmoid diverticulum. Antibiotics were switched to meropenem on 03/10. Patient's pain improved on 03/11 and has been relatively unchanged since. Repeat imaging on 03/14 showed a slight increase in the size of patient's abscess (from 3 x 3.5 cm to 4.3-3.3 cm). General surgery performed a laparoscopic drain of patient's sigmoid diverticular abscess on 03/15 without complication. Overall, patient tolerated surgery well and a left abdominal draining catheter and tube were placed. Patient was initially on clear liquid diet post-surgery, which she tolerated well. Diet was advanced on 03/16. Wound and anaerobic cultures were taken during surgery and results are pending. Initial Gram stain from cultures showed a few gram-positive rods and cocci. Patient's heart rate remained in the low 90s and theophylline was held on 03/11. Patient was removed from subsequently telemetry. Surgical culture demonstrated Escherichia coli sensitive to bactrim. IV antibiotics were stopped and she will be transitioned to her previous doses of Flagyl that she had been on prior to her admission and started on a seven-day course of Bactrim. Patient was given a prescription for Percocet to be taken every 4-6 hours as needed for moderate pain. Patient to follow-up with general surgeon, Dr. Bob in 5-7 days and her primary care provider within 1 week. Plan was discussed with the patient who was in agreement with the discharge plan. DISCHARGE MEDICATIONS: Please see below. ALLERGIES: Penicillins, budesonide, latex, pneumococcal vaccine PHYSICAL EXAMINATION ON DISCHARGE: VITAL SIGNS: Please see below. GENERAL: Patient was interviewed and examined in her hospital room. Patient was found to be lying in bed comfortably in no acute distress. She is alert and oriented 3. She is able to answer questions appropriately actively participate in her care. HEENT: Normocephalic, atraumatic, EOMI, sclera nonicteric, neck is supple with trachea midline CARDIOVASCULAR EXAMINATION: Regular rate and rhythm, normal S1 and S2 no murmurs appreciated RESPIRATORY EXAMINATION: Clear to auscultation bilaterally both anterior and posterior lung cho. No wheezes rales or rhonchi noted ABDOMINAL EXAMINATION: Soft, nontender, nondistended. No guarding no masses palpated. Patient does have 3 laparoscopic incision sites which are healing and covered, no signs of induration and erythema or infection. Patient does have a percutaneous drain in the left lower abdomen and secured with suture. Small amount of serosanguineous fluid noted in drain bulb. EXTREMITIES: No lower extremity edema or calf tenderness. Radial and posterior tibial pulses 2+ and equal bilaterally SKIN: No rashes noted NEUROLOGICAL EXAMINATION: Alert and oriented 3, no focal neurologic deficits. Able to extremities equally bilaterally. PSYCHIATRIC EXAMINATION: Mood and affect are appropriate given patient's current medical condition LABORATORY DATA: Please see below. IMAGING: Chest x-ray (03/07/19): Negative portable chest, no interval change. Abdomen x-ray (03/08/19): No evidence for contrast extravasation. Small amount of pneumoperitoneum overlying the liver suspected. Abdomen x-ray (03/09/19): Single view shows some pelvic surgical course conchis aterally, unchanged. Oral contrast remains in the colon, more on the left than the right side but overall less. There is trace amounts in the transverse left colon and into the rectosigmoid. The suspected pneumoperitoneum near the diaphragm on the previous study is not reproduced on today's examination but this exam is rather insensitive for pneumoperitoneum. There is no gross evidence for extravasation of the oral contrast. The bones are intact. No abnormality of gas pattern distention bowel loops. Abdomen/pelvis CT (03/10/19): Perforated diverticulitis now shows diverticular abscess developed over the past 3 days measuring 3.5 x 3 x 3 7 m adjacent to the mid left sigmoid just of the left midline with an air-fluid level in it now. There is no free air in the abdomen. The free air in the pelvis now coalescent into this abscess cavity. No free fluid adenopathy no other interval change. The abscess appears covered from various approaches with small bowel, colon, blood vessels and bone interpose between it and the skin surface. Abdomen/pelvis CT (03/14/19): Sigmoid colon diverticulitis with associated 4.3 cm diverticular abscess. This is somewhat increased in size from 03/10/2019. ACTIVITY: As tolerated DIET: As tolerated DISCHARGE PLAN: Home with self-long term with self-care DISCHARGE INSTRUCTIONS: Please follow up with general surgeon, Dr. Bob in 5-7 days. Please follow-up with primary care provider in 7 days Please continue to take previously prescribed metronidazole, please start Bactrim BID for 7 days. Please return to the hospital should you begin to experience recurrent fevers, chills or increasing abdominal pain. DISCHARGE CONDITION: Stable TIME SPENT ON DISCHARGE: Greater than 35 minutes. Vital Signs/I&Os Vital Signs Date Time Temp Pulse Resp B/P (MAP) Pulse Ox O2 Delivery O2 Flow Rate FiO2 03/18/19 06:00 97.1 74 20 120/80 (93) 95 03/16/19 04:00 2.0 I&O- Last 24 Hours up to 6 AM 03/18/19 05:59 Intake Total 1440 ml Output Total 1911 ml Balance -471 ml Laboratory Data Labs 24H Laboratory Tests 2 03/18/19 06:17: Nucleated Red Blood Cells % (auto) 0.0, Anion Gap 7L, Glomerular Filtration Rate > 60.0, Blood Urea Nitrogen 17#, Creatinine 0.87, Sodium Level 133L, Potassium Level 4.3, Chloride Level 102, Carbon Dioxide Level 24, Calcium Level 8.6 CBC/BMP Laboratory Tests 03/18/19 06:17 Red Blood Count 4.21, Mean Corpuscular Volume 96.4 H, Mean Corpuscular Hemoglobin 31.8, Mean Corpuscular Hemoglobin Concent 33.0, Red Cell Distribution Width 13.5, Calcium Level 8.6 Microbiology Microbiology 03/15/19 Gram Stain - Final, Resulted 03/15/19 Wound Culture - Final, Resulted Escherichia Coli Yeast Like Organism 03/15/19 Anaerobic Culture, Resulted Pending 03/10/19 Blood Culture - Final, Complete NO GROWTH AFTER 5 DAYS Discharge Medications Scheduled Alendronate Sodium (Alendronate Sodium) 10 Mg Tab, 10 MG PO DAILY, (Reported) Azithromycin (Azithromycin) 250 Mg Tab, 250 MG PO 3XW, (Reported) MON, MON, MON Calcium Carbonate/Vitamin D3 (Calcium 500-Vit D3 200 Caplet) 1 Tab Tab, 1 TAB PO DAILY, (Reported) Cetirizine HCl (Cetirizine HCl) 10 Mg Tablet, 10 MG PO QHS, (Reported) Cholecalciferol (Vitamin D3) (Vitamin D3) 1,000 Unit Tab, 1,000 UNIT PO DAILY, (Reported) Metronidazole (Flagyl) 500 Mg Tablet, 500 MG PO TID, (Reported) TAKEN 1ST DOSE OF 7 DAY COURSE Prednisone (Prednisone) 10 Mg Tab, 10 MG PO DAILY, (Reported) Salmeterol/Fluticasone (Advair 500-50 Diskus) 28 Puff/Inhaler Aerp, 1 PUFF INH BID, (Reported) Sulfamethoxazole/Trimethoprim (Bactrim 400-80 mg Tablet) 1 Each Tablet, 1 TAB PO BID Theophylline Anhydrous (Theophylline Anhydrous) 300 Mg Tabcr, 300 MG PO BID, (Re ported) Tiotropium [place] (Spiriva) 18 Mcg Cap, 1 INHALATION INH DAILY, (Reported) Scheduled PRN Albuterol Sulf (Albuterol Sulfate) 2.5 Mg/3 Ml Nebu, 2.5 MG INH QID PRN for SHORTNESS OF BREATH, (Reported) Albuterol Sulfate (Ventolin Hfa) 108 Mcg/Act Aer, 1 PUFF INH Q4H PRN for SHORTNESS OF BREATH, (Reported) Oxycodone/Acetaminophen (Oxycodone-Acetaminophen 5-325) 1 Each Tablet, 1 TAB PO Q4HP PRN for MODERATE/SEVERE PAIN (PS 5-10) Allergies Coded Allergies: Penicillins (Verified Allergy, Intermediate, HIVES, 03/07/19) latex (Verified Allergy, Intermediate, SKIN, 03/07/19) pneumococcal vaccine (Verified Allergy, Mild, LOCAL, 03/07/19) budesonide (Verified Allergy, Unknown, 03/07/19) CHARY MANNING DO Mar 18, 2019 10:26
--- NOTE | 2019-03-18 12:52 | IPN ---
DATE: 03/18/2019 HISTORY: The patient is now postoperative day #3 from laparoscopy with placement of a drain in her sigmoid mesenteric abscess. She reports having had some pain in her lower abdomen last evening, but again it seems improved this morning. Vital signs show that she has been afebrile. Her pulse has ranged from 74-111. Blood pressure is normal. Intake and output show that yesterday she had 1400 in with 2200 recorded out. She had 19 mL recorded out from her drain yesterday and only 1 mL recorded this morning. The patient is lying quietly on the hospital bed looking quite comfortable. She is alert and oriented. Abdomen is mildly obese, but soft. Her drain has a minimal amount of serous fluid in the bulb with a small amount of clot present. There was no increase in output when I milked the drain. Laboratory studies show a white count of 16 with a hemoglobin of 13, hematocrit 41 and platelet count of 480,000. Chemistry profile shows a sodium of 133, potassium 4.3, chloride 102, CO2 of 24, BUN of 17, creatinine 0.9 and glucose of 95. Culture from her abscess obtained in the operating room (OR) show that she is now growing E. Coli and a few yeast like organisms. The E. Coli is resistant to ampicillin, levofloxacin, and ampicillin sulbactam. IMPRESSION: The patient is still doing very well now 3 days postoperative from her abscess drainage. Her white count which had gone down yesterday has gone back up slightly today. She remains afebrile. PLAN: I think it would be reasonable to consider discharge today on oral antibiotics. I think I would discharge her with the drain in place even though the output has been minimal so far today. I would plan on seeing her back in the next 2-3 days in the office to consider removal of her drain at that time.
== END 2019-03-18 13:50 | disposition home or self-care (01) | DRG 346 ==
LOC: M ED 13:36 → M ED INP 17:03 → M ICU 19:59 → M PCU 03-11 21:10 → M MSPAV 03-16 12:17
PROVIDERS: ADMIT Internal Medicine; ATTEND Internal Medicine
PROC: 0D9N4ZZ Drainage of Sigmoid Colon, Percutaneous Endoscopic Approach (ICD-10-PCS; principal; 2019-03-15 17:00)
DX: K57.20 Diverticulitis of large intestine with perforation and abscess without bleeding (principal); K66.0 Peritoneal adhesions (postprocedural) (postinfection); J45.909 Unspecified asthma, uncomplicated; Z91.040 Latex allergy status; M81.0 Age-related osteoporosis without current pathological fracture; R00.0 Tachycardia, unspecified; E87.6 Hypokalemia; B96.20 Unspecified Escherichia coli [E. coli] as the cause of diseases classified elsewhere; Z79.52 Long term (current) use of systemic steroids; Z88.0 Allergy status to penicillin; Z79.899 Other long term (current) drug therapy; Z88.7 Allergy status to serum and vaccine; Z88.8 Allergy status to other drugs, medicaments and biological substances

== ENCOUNTER → 2019-09-04 | Outpatient (REF) | payer OTHER ==
[~2019-09-04] MED LIST changes: -ALEN10TA21 PO; +ALEN10TA5 PO; +ALL10TAB29 PO; +BACT400T PO; +PERCOCET PO
== END ==
LOC: M LAB REF 12:21
PROVIDERS: ATTEND Internal Medicine
DX: J45.50 Severe persistent asthma, uncomplicated (principal)

== ENCOUNTER → 2019-11-03 | Outpatient (CLI) | payer OTHER ==
--- NOTE | 2019-11-03 13:24 | REP ---
Clinical: Right hip pain. Technique: Neutral and frog lateral views of the right hip. Findings: Osseous structures, joint spaces, and surrounding soft tissues are normal. No acute fracture dislocation. No healed injury. No overt arthritic changes. Impression: Normal age-appropriate right hip radiographs. Electronically Signed by Abdon Chavez MD 11/03/2019 01:15 P
== END ==
LOC: M RAD 12:49
PROVIDERS: ATTEND Physician Assistant
DX: M25.551 Pain in right hip (principal)

== ENCOUNTER → 2019-12-09 | Outpatient (CLI) | payer OTHER ==
--- NOTE | 2019-12-16 14:24 | SLEEPHOME ---
DATE OF STUDY: 12/09/2019 ORDERED BY: Dr. Hudson Diagnostic home sleep testing was performed due to concern for the obstructive sleep apnea syndrome. For testing, the patient was placed on his usual oxygen flow rate of 2 liters per minute. A nocturnal T3 respiratory monitoring device was used and continuous record was made of pulse, oxygen saturation, airflow, chest and abdominal strain and body position. 9 hours and 59 minutes of data were reviewed. There were 7 hours and 7 minutes marked as time in bed. During the interval marked time in bed, there were 74 respiratory events identified of 10 seconds in duration or greater for a respiratory event index of 10.4. The events were primarily obstructive, but 22 mixed and central apneas were also seen. Baseline pulse rate was 80 beats per minute, pulse rate ranged from 64-99. Baseline saturation was 93%, saturations fell to 89% despite supplemental oxygen. Testing was performed in both the supine and nonsupine positions. IMPRESSION: Abnormal home sleep testing with repetitive respiratory events and oxygen desaturations to 89% despite supplemental oxygen with a respiratory event index of 10.4 is consistent with the obstructive sleep apnea syndrome. The patient should be encouraged to undergo formal sleep evaluation.
== END ==
LOC: M SLEEP HO 11:43
PROVIDERS: ATTEND Internal Medicine Pulmonary Disease
DX: R06.83 Snoring (principal)

== ENCOUNTER → 2020-02-26 | Outpatient (REF) | payer OTHER ==
[~2020-02-26] MED LIST changes: -ALL10TAB29 PO; +CETI-24 PO; -THEO1TAB PO; +THEO300T33 PO
== END ==
LOC: M LAB REF 16:18
PROVIDERS: ATTEND Internal Medicine
DX: J45.50 Severe persistent asthma, uncomplicated (principal)

== ENCOUNTER → 2020-03-23 | Outpatient (CLI) | payer OTHER ==
--- NOTE | 2020-03-25 07:36 | SLEEPCENT ---
DATE: 03/23/2020 ORDERED BY: Dr. Hudson Nocturnal polysomnography was performed for the titration of pressure therapy in this patient with a clinical diagnosis of obstructive sleep apnea syndrome confirmed by home testing, revealing a respiratory event index of 10.4. For testing, ResMed AirFit F30 mask of small size. There was 2 liters of oxygen bled through the circuit. There was 4 cm of water pressure applied to the circuit, and the lights were extinguished. There was 7 hours and 32 minutes of data reviewed. There was 167 minutes of sleep identified. Sleep latency was quite prolonged at 108 minutes. REM latency was also prolonged at 192 minutes. Sleep architecture once established was fair. There were two REM cycles noted, but progression was somewhat fragmented. Overall sleep efficiency was 37.5%. The EKG showed a sinus rhythm with an average heart rate of 82 beats per minute. EEG showed normal waveforms for wake and sleep stages. Some EKG artifact is noted. Respiratory events were fully palliated with CPAP at a pressure of +6. Oxygen continued at 2 liters per minute during the titration. There was some scattered limb activity. Remaining measures of sleep physiology was normal. IMPRESSION: Obstructive sleep apnea syndrome (G47.33). RECOMMENDATION: Nightly use of pressure therapy, 6 cm of water, with 2 liters of oxygen bled through the circuit. MTDD
== END ==
LOC: M SLEEP 20:00
PROVIDERS: ATTEND Internal Medicine Pulmonary Disease
DX: G47.33 Obstructive sleep apnea (adult) (pediatric) (principal)

== ENCOUNTER → 2020-08-24 | Outpatient (REF) | payer OTHER | LOC: M LAB REF 16:20 | PROVIDERS: ATTEND Internal Medicine | DX: J45.50 Severe persistent asthma, uncomplicated (principal) ==

== ENCOUNTER → 2021-03-01 | Outpatient (REF) | payer OTHER | LOC: M LAB REF 16:11 | PROVIDERS: ATTEND Internal Medicine | DX: J45.50 Severe persistent asthma, uncomplicated (principal) ==

== ENCOUNTER → 2021-04-13 | Outpatient (CLI) | payer OTHER ==
--- NOTE | 2021-04-13 15:35 | REPMRS ---
Patient History The patient states she has not had a clinical breast exam in over a year. Patient is postmenopausal. No known family history of cancer. Benign FNA biopsy of the left breast, 2011. No Hormone Replacement Therapy Patient states no breast complaints today. Patient has signed MRS History Sheet. Digital Woman Screen Mammo: April 13, 2021 - Exam #: [id number] Bilateral CC and MLO view(s) were taken. Technologist: Ayah Thomas, [employer] Prior study comparison: January 18, 2020, bilateral screening 3D/tomosynthesis, performed at [facility]. August 03, 2018, bilateral screening 3D/tomosynthesis, performed at [facility]. FINDINGS: There are scattered fibroglandular densities. Screening. Digital screening (2D) mammography was performed bilaterally in the CC and MLO projections. Additionally, breast tomosynthesis (3D mammography) was performed bilaterally in the CC and MLO projections. Todays exam was compared to the prior exam/exams. By history, the patient has no complaints of a palpable breast abnormality or other significant breast complaints. The breasts are unchanged in size and shape. There are no nella-soft tissue densities or spiculated masses. There is no internal architectural distortion. There are no suspicious nella-calcific clusters. Skin thickening or nipple retraction is not present. IMPRESSION: BI-RADS Category 2- Benign Findings. There is no evidence of malignant alteration of the breasts. Followup examination recommended in one year. The Volpara volumetric breast density category is B, there are scattered areas of fibroglandular densities. This mammogram was read with the assistance of [employer],an FDA approved computer aided detection system for mammography. The lifetime Tyrer-Cuzick score is 7.3 % Negative x-ray reports should not delay surgical consultation if a dominant or clinically suspicious mass is present. Not all breast cancers can be identified by mammography. Therefore, we recommend that you continue to perform regular breast self-examination and physical examination and then promptly contact your physician of any concerns or changes. Adenosis and dense breasts may obscure an underlying neoplasm. Assessment: BI-RADS/ACR category 2 mammogram. Benign Findings. Recommendation Routine screening mammogram of both breasts in 1 year. Electronically Signed By: Diallo Cho DO 04/13/21 [id number]
== END ==
LOC: M WHC 14:25
PROVIDERS: ATTEND Internal Medicine
DX: Z12.31 Encounter for screening mammogram for malignant neoplasm of breast (principal)

== ENCOUNTER → 2021-04-28 | Outpatient (CLI) | payer OTHER | LOC: M WHC 12:49 | PROVIDERS: ATTEND Internal Medicine | DX: M85.80 Other specified disorders of bone density and structure, unspecified site (principal) ==

== ENCOUNTER → 2021-09-02 | Outpatient (REF) | payer OTHER | LOC: M LAB REF 10:30 | PROVIDERS: ATTEND Internal Medicine | DX: J45.50 Severe persistent asthma, uncomplicated (principal) ==

== ENCOUNTER → 2021-12-30 | Outpatient (CLI) | payer OTHER ==
[~2021-12-30] MED LIST changes: +ALBU2.5V10 INH; -ALBU83IN INH
== END ==
LOC: M RAD 17:55
PROVIDERS: ATTEND Physician Assistant
DX: S99.922A Unspecified injury of left foot, initial encounter (principal); W20.8XXA Other cause of strike by thrown, projected or falling object, initial encounter

== ENCOUNTER → 2022-01-12 | Outpatient (REF) | payer OTHER ==
[2022-01-13 10:59] LABS: APPEARANCE, URINE CLOUDY (CLEAR); BACTERIA, URINE AUTO NEGATIVE (NEGATIVE); BILIRUBIN, URINE AUTO NEGATIVE (NEGATIVE); BLOOD, URINE BLOOD 2+ (NEGATIVE); COLOR, URINE YELLOW (YELLOW); GLUCOSE, URINE (UA) AUTO NEGATIVE (NEGATIVE); KETONE, URINE AUTO NEGATIVE (NEGATIVE); LEUKOCYTE ESTERASE, URINE AUTO NEGATIVE (NEGATIVE); MUCUS, URINE SMALL (NEGATIVE); NITRITE, URINE AUTO POSITIVE (NEGATIVE); PROTEIN, URINE AUTO NEGATIVE (NEGATIVE); RBC, URINE AUTO 3 /HPF (0-3); SPECIFIC GRAVITY URINE AUTO 1.008 (1.002-1.035); SQUAMOUS EPITHELIAL CELL UR AU 1 /HPF (0-6); UROBILINOGEN, URINE AUTO 0.2 mg/dL (0.0-2.0); WBC, URINE AUTO 4 /HPF (0-3)
== END ==
LOC: M LAB REF 09:19
PROVIDERS: ATTEND Physician Assistant
DX: N89.8 Other specified noninflammatory disorders of vagina (principal)

== ENCOUNTER → 2022-03-09 | Outpatient (REF) | payer OTHER ==
[2022-03-09 13:30] LABS: BASO # 0.1 10^3/uL (0.0-0.2); BASO % 0.5 % (0.0-1.0); EOS # 0.3 10^3/uL (0.0-0.5); HEMATOCRIT 46.3 % (36.0-47.0); HEMOGLOBIN 15.2 g/dl (12.0-15.5); LYMPH # 2.5 10^3/uL (1.5-5.0); LYMPH % 20.8 % (24.0-44.0); MEAN CORPUSCULAR HEMOGLOBIN 30.8 pg (27.0-33.0); MEAN CORPUSCULAR HGB CONC 32.8 g/dl (32.0-36.5); MEAN CORPUSCULAR VOLUME 93.9 fl (80.0-96.0); MONO # 0.5 10^3/uL (0.0-0.8); NEUTROPHILS # 8.8 10^3/uL (1.5-8.5); NEUTROPHILS % 72.3 % (36.0-66.0); PLATELET COUNT, AUTOMATED 338 10^3/uL (150-450); RED BLOOD COUNT 4.93 10^6/uL (4.00-5.40); WHITE BLOOD COUNT 12.2 10^3/uL (4.0-10.0)
== END ==
LOC: M LAB REF 12:53
PROVIDERS: ATTEND Internal Medicine
DX: D72.819 Decreased white blood cell count, unspecified (principal)

== ENCOUNTER → 2022-04-19 | Outpatient (CLI) | payer OTHER | LOC: M WHC 16:31 | PROVIDERS: ATTEND Internal Medicine | DX: Z12.31 Encounter for screening mammogram for malignant neoplasm of breast (principal) ==

== ENCOUNTER → 2022-09-06 | Outpatient (REF) | payer OTHER ==
[2022-09-06 16:50] LABS: THEOPHYLLINE LEVEL 17.1 UG/ML (10.0-20.0)
[2022-09-06 17:50] LABS: FOLATE 18.5 NG/ML (>5.4)
== END ==
LOC: M LAB REF 16:19
PROVIDERS: ATTEND Internal Medicine
DX: D72.819 Decreased white blood cell count, unspecified (principal)

== ENCOUNTER → 2023-04-13 | Outpatient (CLI) | payer MEDICARE, OTHER ==
[~2023-04-13] MED LIST changes: +DICY-61 PO; -DICY10CA13 PO
== END ==
LOC: M WHC 13:39
PROVIDERS: ATTEND Internal Medicine
DX: Z12.31 Encounter for screening mammogram for malignant neoplasm of breast (principal); M81.0 Age-related osteoporosis without current pathological fracture

== ENCOUNTER → 2023-05-09 | Outpatient (CLI) | payer MEDICARE, OTHER | LOC: M PLAIMG 15:23 | PROVIDERS: ATTEND Internal Medicine Pulmonary Disease | DX: J45.50 Severe persistent asthma, uncomplicated (principal) ==

== ENCOUNTER → 2023-05-15 | Outpatient (REF) | payer MEDICARE, OTHER | LOC: M SFHCWAGY 17:06 → M LAB REF 17:06 | PROVIDERS: ATTEND Advanced Practice Midwife | DX: Z12.4 Encounter for screening for malignant neoplasm of cervix (principal); N95.2 Postmenopausal atrophic vaginitis ==

== ENCOUNTER → 2023-09-11 | Outpatient (REF) | payer MEDICARE, OTHER | LOC: M LAB REF 16:30 | PROVIDERS: ATTEND Internal Medicine | DX: Z99.81 Dependence on supplemental oxygen (principal); J45.51 Severe persistent asthma with (acute) exacerbation ==

== ENCOUNTER 2023-09-25 08:07 | Day surgery (SDC) | payer MEDICARE, OTHER ==
[~2023-09-25] VITALS: Ht 157.5 cm; Wt 60.3 kg
[2023-09-25 08:30] VITALS: TEMP 97.2
[2023-09-25] MEDS ORDERED: propofoL 200 MG/20 ML VIAL As Ordered ONE (10:37)
[2023-09-25] MEDS: ONDANSETRON 4MG 2ML VIAL IV STA (10:48)
[2023-09-25 11:10] VITALS: BP 158/91; O2SAT 100
== END 2023-09-25 11:34 | disposition home or self-care (01) ==
LOC: M OPP 08:07
PROVIDERS: ATTEND Internal Medicine Gastroenterology
DX: Z12.11 Encounter for screening for malignant neoplasm of colon (principal); Z86.010 Personal history of colon polyps; D12.0 Benign neoplasm of cecum; D12.3 Benign neoplasm of transverse colon; K57.30 Diverticulosis of large intestine without perforation or abscess without bleeding; G47.30 Sleep apnea, unspecified; Z99.89 Dependence on other enabling machines and devices; Z79.2 Long term (current) use of antibiotics; Z79.51 Long term (current) use of inhaled steroids; Z79.52 Long term (current) use of systemic steroids; Z79.83 Long term (current) use of bisphosphonates; Z79.899 Other long term (current) drug therapy; Z88.0 Allergy status to penicillin; Z88.7 Allergy status to serum and vaccine; Z88.8 Allergy status to other drugs, medicaments and biological substances; Z91.040 Latex allergy status
CPT/HCPCS: 45385; 88305; J2405

== ENCOUNTER → 2023-10-20 | Outpatient (CLI) | payer MEDICARE, OTHER | LOC: M WUC 13:08 | PROVIDERS: ATTEND Student in an Organized Health Care Education/Training Program | DX: M25.511 Pain in right shoulder (principal) ==

== ENCOUNTER → 2024-03-11 | Outpatient (REF) | payer MEDICARE, OTHER ==
[~2024-03-11] MED LIST changes: +ONDA-282 PO; -ONDA4TAB6 PO
== END ==
LOC: M LAB REF 16:24
PROVIDERS: ATTEND Internal Medicine
DX: J45.50 Severe persistent asthma, uncomplicated (principal); J45.51 Severe persistent asthma with (acute) exacerbation; Z99.81 Dependence on supplemental oxygen

== ENCOUNTER → 2024-05-01 | Outpatient (CLI) | payer MEDICARE, OTHER ==
[~2024-05-01] MED LIST changes: +VANC250C12 PO; -VANC250C3 PO
== END ==
LOC: M WHC 11:59
PROVIDERS: ATTEND Internal Medicine
DX: Z12.31 Encounter for screening mammogram for malignant neoplasm of breast (principal)

== ENCOUNTER → 2025-04-24 | Outpatient (CLI) | payer MEDICARE, OTHER ==
[~2025-04-24] MED LIST changes: +ADVA1AER10 INH
== END ==
LOC: M PLAIMG 13:44
PROVIDERS: ATTEND Internal Medicine Pulmonary Disease
DX: J45.50 Severe persistent asthma, uncomplicated (principal)

== ENCOUNTER → 2025-05-30 | Outpatient (CLI) | payer MEDICARE, OTHER | LOC: M WHC 13:54 | PROVIDERS: ATTEND Internal Medicine | DX: Z12.31 Encounter for screening mammogram for malignant neoplasm of breast (principal); M81.0 Age-related osteoporosis without current pathological fracture ==